=== PATIENT | male | born 1950 | race Caucasian/White ===

== ENCOUNTER 2025-04-10 09:07 | Outpatient (OUT) | payer OTHER, SELFPAY ==
--- OUTSIDE RECORDS SUMMARY | 2025-03-29 04:00 | XMS_ITS | Encounter Summary ---
Author Name [facility] Organization [facility] Address [address] [place] [id number] Selected Encounter This section includes the information on record at ME for the Encounter. Date/Time Encounter Type Encounter Description Reason Provider Source March 29, 2025 08:00 AM Outpatient Encounter GENERAL INTERNAL MEDICINE ICD-10-CM Z02.89 Encounter for other administrative examinations [facility] K[facility] Encounter Template Text not used by ME Assessments - Encounter Diagnoses This section includes the primary and secondary diagnoses documented for the Encounter. Date/Time Primary/Secondary Diagnosis Diagnosis Name Provider Source March 29, 2025 11:38 AM PRIMARY Encounter for other administrative examinations [facility] KUR[facility] Encounter Notes: All associated encounter notes This section contains the clinical notes associated to the Encounter. Date/Time Encounter Note(s) Provider Source March 29, 2025 08:00 AM C & P EXAMINATION NOTE: LOCAL TITLE: C&P EXAMINATION NOTE STANDARD TITLE: C & P EXAMINATION NOTE DATE OF NOTE: MARCH 29, 2025@08:00 ENTRY DATE: MARCH 29, 2025@11:22:48 AUTHOR: HILLARY KURTZ EXP COSIGNER: URGENCY: STATUS: COMPLETED Medical Opinion Disability Benefits Questionnaire Name of patient/Tubac: BEN CASANOVA LOLY and Evidence Review Indicate method used to obtain medical information to complete this document: [X] Review of available records (without in-person or video telehealth examination) using the Acceptable Clinical Evidence (LOLY) process because the existing medical evidence provided sufficient information on which to prepare the questionnaire and such an examination will likely provide no additional relevant evidence. 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 Please examine the for a chronic disability related to his or her claimed condition and indicate the current level of severity. TYPE OF MEDICAL OPINION REQUESTED: Toxic Exposure Risk Activities. Does the Tubac have a diagnosis of (a) erectile dysfunction that is at least as likely as not (likelihood is at least approximately balanced or nearly equal, if not higher) caused by (the) service in [place] after considering the total potential exposure through all applicable deployments of the and the synergistic combined effect of all toxic exposure risk activities of the ? For this Contention, [facility] expects a results package to at minimum include data pertaining to the following DBQ(s): DBQ Male Reproductive Organ DBQ Medical Opinion headaches The is claiming service connection for headaches. Please examine the for a chronic disability related to his or her claimed condition and indicate the current level of severity. TYPE OF MEDICAL OPINION REQUESTED: Toxic Exposure Risk Activities. Does the Tubac have a diagnosis of (a) headaches that is at least as likely as not (likelihood is at least approximately balanced or nearly equal, if not higher) caused by (the) service in [place] after considering the total potential exposure through all applicable deployments of the and the synergistic combined effect of all toxic exposure risk activities of the ? For this Contention, [facility] expects a results package to at minimum include data pertaining to the following DBQ(s): DBQ Medical Opinion DBQ NEURO Headaches (including Migraines) chronic bronchitis The is claiming service connection for chronic bronchitis. Please examine the Tubac for a chronic disability related to his or her claimed condition and indicate the current level of severity. TYPE OF MEDICAL OPINION REQUESTED: Toxic Exposure Risk Activities. Does the Tubac have a diagnosis of (a) chronic bronchitis that is at least as likely as not (likelihood is at least approximately balanced or nearly equal, if not higher) caused by (the) service in [place] after considering the total potential exposure through all applicable deployments of the and the synergistic combined effect of all toxic exposure risk activities of the ? For this Contention, [facility] expects a results package to at minimum include data pertaining to the following DBQ(s): DBQ Medical Opinion DBQ RESP Respiratory Conditions (Other than Tuberculosis and sleep apnea) obstructive sleep apnea The is claiming service connection for obstructive sleep apnea. Please examine the for a chronic disability related to his or her claimed condition and indicate the current level of severity. TYPE OF MEDICAL OPINION REQUESTED: Toxic Exposure Risk Activities. Does the have a diagnosis of (a) obstructive sleep apnea that is at least as likely as not (likelihood is at least approximately balanced or nearly equal, if not higher) caused by (the) service in [place] after considering the total potential exposure through all applicable deployments of the Tubac and the synergistic combined effect of all toxic exposure risk activities of the ? For this Contention, [facility] expects a results package to at minimum include data pertaining to the following DBQ(s): DBQ Medical Opinion DBQ RESP Sleep Apnea * Please direct any questions regarding this request to: Phone number: Email: * RESPONSE: Please see the following for the requested medical opinions pertaining to each: DBQ Male Reproductive Organ DBQ NEURO Headaches (including Migraines) DBQ RESP Respiratory Conditions (Other than Tuberculosis and sleep apnea) DBQ RESP Sleep Apnea /es/ HILLARY KURTZ D.O. PHYSICIAN Signed: 03/29/2025 11:22 [facility] March 29, 2025 08:00 AM C & P EXAMINATION NOTE: LOCAL TITLE: C&P EXAMINATION NOTE STANDARD TITLE: C & P EXAMINATION NOTE DATE OF NOTE: MARCH 29, 2025@08:00 ENTRY DATE: MARCH 29, 2025@11:25:30 AUTHOR: HILLARY KURTZ EXP COSIGNER: URGENCY: STATUS: COMPLETED MALE REPRODUCTIVE ORGAN CONDITIONS (INCLUDING PROSTATE CANCER) Disability Benefits Questionnaire Name of Claimant/: BEN CASANOVA Note to examiner - The is applying to the [employer] ([facility]) for disability benefits. VA will consider the information you provide on this questionnaire as part of their evaluation in processing the 's claim. Is this DBQ being completed in conjunction with a VA C&P Examination Request? [X] Yes [ ] No How was the examination completed? (check all that apply) [ ] In-person examination [X] Records reviewed [ ] Examination via approved video telehealth [ ] Other, please specify in comments box Comments: Acceptable Clinical Evidence (LOLY) Indicate the method used to obtain medical information to complete this document: [X] Review of available records (without in-person or video telehealth examination) using the Acceptable Clinical Evidence (LOLY) process because the existing medical evidence provided sufficient information on which to prepare the questionnaire and such an examination will likely provide no additional relevant evidence. Evidence Review Evidence reviewed (check all that apply): [X] VA electronic health record [X] VA e-folder Evidence Comments: No response provided 1. Diagnosis Note: These are condition(s) for which an evaluation has been requested on the exam request form (Internal ME) or for which the Tubac has requested medical evidence be provided for submission to ME. 1A. List the claimed condition(s) that pertain to this questionnaire: erectile dysfunction Note: These are the diagnoses determined during this current evaluation of the claimed condition(s) listed above. If there is no diagnosis, if the diagnosis is different from a previous diagnosis for this condition, or if there is a diagnosis of a complication due to the claimed condition, explain your findings and reasons in the remarks section. Date of diagnosis can be the date of the evaluation if the clinician is making the initial diagnosis or an approximate date determined through record review or reported history. 1B. Does the now have or has he ever been diagnosed with any conditions of the male reproductive system? [X] Yes [ ] No If yes, complete Item 1C 1C. Select diagnoses associated with the claimed condition(s). Check all that apply. [X] Erectile dysfunction, with or without penile deformity ICD code: .... Date of diagnosis: see record [X] Prostate gland injuries, infections, hypertrophy, postoperative residuals, bladder outlet obstruction Specify specific diagnosis: BPH ICD code: ... Date of diagnosis: see record 2. Medical History 2A. Describe the history, including onset and course, of the 's male reproductive organ condition(s), including prostate cancer. Brief summary: Diagnosed with ED and BPH. 2B. Does the 's treatment plan include taking continuous medication for the diagnosed condition? [ ] Yes [X] No 2C. Has the Tubac had an orchiectomy? [ ] Yes [X] No For ME purposes, renal dysfunction includes evidence demonstrating the following for at least 3 consecutive months during the past 12 months: glomerular filtration rate (GFR) of less than 60 mL/min/1.73m2; or GFR from 60 to 89 mL/min/1.73m2 and the presence of at least one of the following: recurrent red blood cell (RBC) casts, white blood cell (WBC) casts, granular casts, structural kidney abnormalities (cystic, obstructive, or glomerular), or increased secretion of protein in the urine (proteinuria). GFR, estimated GFR (eGFR), and creatinine based approximations of GFR will be accepted for evaluation purposes when determined to be appropriate and calculated by a medical professional. Note: If the medical record contains multiple lab tests during this 12 month period, by at least 3 months, and there is no evidence to contradict those findings in the interim period, ME will accept that the demonstrated renal dysfunction has persisted for at least 3 consecutive months during the past 12 months. 2D. Is there any renal dysfunction due to any conditions listed in the diagnosis section? [ ] Yes [X] No 3. Voiding Dysfunction 3A. Does the have a voiding dysfunction? [X] Yes [ ] No If yes, complete the remainder of section III. 3B. Etiology of voiding dysfunction: BPH 3C. Does the voiding dysfunction cause urine leakage? [X] Yes [ ] No Indicate severity. Check one: [ ] Does not require the wearing of absorbent material [X] Requires absorbent material which must be changed less than 2 times per day [ ] Requires absorbent material which must be changed 2 to 4 times per day [ ] Requires absorbent material which must be changed more than 4 times per day [ ] Other, describe: 3D. Does the voiding dysfunction require the use of an appliance? [ ] Yes [X] No 3E. Does the voiding dysfunction cause increased urinary frequency? [ ] Yes [X] No 3F. Does the voiding dysfunction cause signs or symptoms of obstructed voiding? [ ] Yes [X] No 4. Erectile Dysfunction 4A. Does the have erectile dysfunction? [X] Yes [ ] No If yes, provide etiology, if known. No response provided [X] Etiology unknown 5. Retrograde Ejaculation 5A. Does the Tubac have retrograde ejaculation? [ ] Yes [X] No 6. Male Reproductive Organ Infections, Including Urinary Tract Infections - 6A. Does the Tubac have a history of chronic prostatitis, urethritis, epididymitis, orchitis, or urinary tract infections? [ ] Yes [X] No 7. Physical Exam No response provided 8. Tumors and Neoplasms 8A. Does the currently have, or has had, a benign or malignant neoplasm or metastases related to any condition in the diagnosis section? [X] Yes [ ] No If yes, complete the remainder of section VIII. 8B. Is the neoplasm [X] Benign 8C. Has the completed treatment or is the currently undergoing treatment for a benign or malignant neoplasm or metastases? [X] Yes [ ] No; watchful waiting If yes, indicate type of treatment the Tubac is currently undergoing or has completed. Check all that apply: No response provided [X] Transurethral resection of the prostate (TURP) Date of surgery: 03-07-2024 8D. Does the Tubac currently have any residuals or complications due to the neoplasm (including metastases) or its treatment, other than those already documented in the report above? [ ] Yes [X] No 8E. If there are additional benign or malignant neoplasms or metastases related to any of the diagnoses in the diagnosis section, describe using the above format. No response provided 9. Other Pertinent Physical Findings, Complications, Conditions, Signs, Symptoms, and Scars ----- 9A. Does the have any other pertinent physical findings, complications, conditions, signs or symptoms related to any conditions listed in the diagnosis section above? [ ] Yes [X] No 9B. Does the have any scars or other disfigurement (of the skin) related to any conditions or to the treatment of any conditions listed in the diagnosis section? [ ] Yes [X] No 10. Diagnostic Testing Note: If imaging studies, diagnostic procedures or laboratory testing have been performed and reflects the Tubac's current condition, provide most recent results; no further studies or testing are required for this examination. 10A. Has a biopsy been performed? [X] Yes [ ] No Date of biopsy: 03-07-2024 Results: Component Resulting Agency FINAL DIAGNOSIS A. Prostate, chips, transurethral resection: - Benign fibromuscular and glandular hyperplasia. 10B. Are there any other significant diagnostic test findings or results related to the claimed condition(s) and/or diagnosis(es) that were reviewed in conjunction with this examination? [X] Yes [ ] No If yes, provide type of test or procedure, date and results. Brief summary: PSA 04/17/2012 3.87 Dec 16, 2022: 5.83 Dec 23, 2023: 8.01 Uroflow interpretation Decreased strength of the urinary stream with incomplete bladder emptying. 40% PVR 11. Functional Impact Note: Provide the impact of only the diagnosed condition(s), without consideration of the impact of other medical conditions or factors, such as age. 11A. Regardless of the Tubac's current employment status, do the conditions listed in the diagnosis section impact his/her ability to perform any type of occupational task (such as standing, walking, lifting, sitting, etc.)? [ ] Yes [X] No 12. Remarks 12A. Remarks (if any - please identify the section to which the remark pertains when appropriate). 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 Please examine the for a chronic disability related to his or her claimed condition and indicate the current level of severity. TYPE OF MEDICAL OPINION REQUESTED: Toxic Exposure Risk Activities. Does the Tubac have a diagnosis of (a) erectile dysfunction that is at least as likely as not (likelihood is at least approximately balanced or nearly equal, if not higher) caused by (the) service in [place] after considering the total potential exposure through all applicable deployments of the Tubac and the synergistic combined effect of all toxic exposure risk activities of the ? Additional Information: Document Type: Medical Treatment Record - Non-Government Facility, Subject: null, Annotation: , Document ID: [id number] , Upload Date: 01/24/2025, Page number: 1 Document Type: OKSANA Memorandum, Subject: OKSANA Espinoza, Annotation: , Document ID: [id number] , Upload Date: 02/11/2025, Page number: 1 Document Type: Certificate of Release or Discharge From Active Duty (e.g. DD 214, NOAA 56-16, PHS 1867), Subject: 1) Reg [employer] HON 11/05/1966 - 11/04/1970 ([place] Annotation: , Document ID: [id number] , Upload Date: 05/10/2024, Page number: 1 Document Type: DPRIS Response, Subject: DPRIS Response, Annotation: [place] pg 32, Document ID: [id number] , Upload Date: 04/27/2024, Page number: 1 Document Type: ILER IES Record, Subject: ILER - Individual Longitudinal Exposure Record, Annotation: , Document ID: [id number], Upload Date: 11/08/2024, Page number: 1 Document Type: Certificate of Release or Discharge From Active Duty (e.g. DD 214, NOAA 56-16, PHS 1867), Subject: 2) T-10 [employer] HON 11/17/2003 - 02/02/2005, Annotation: , Document ID: [id number] , Upload Date: 05/10/2024, Page number: 1 For this Contention, [facility] expects a results package to at minimum include data pertaining to the following DBQ(s): DBQ Male Reproductive Organ DBQ Medical Opinion Please direct any questions regarding this request to: Phone number: Email: RESPONSE: erectile dysfunction The Tubac is claiming service connection for erectile dysfunction. Please examine the Tubac for a chronic disability related to his or her claimed condition and indicate the current level of severity. TYPE OF MEDICAL OPINION REQUESTED: Toxic Exposure Risk Activities. After review of the available medical record, the has a diagnosis of (ED) erectile dysfunction that is less likely as not (likelihood is less than approximately balanced or nearly equal) caused by (the) service in [place] after considering the total potential exposure through all applicable deployments of the and the synergistic combined effect of all toxic exposure risk activities of the . This was involved in a [place] including [place] and service in [facility]. There is no objective evidence that this 's [place] is the cause of his ED. ED is common in the general populations. This is at risk for ED due to advancing age, peripheral artery disease, BPH, DLD, and tobacco abuse. TYPE OF MEDICAL OPINION REQUESTED: Toxic Exposure Risk Activities. After review of the available medical record, the Tubac has a diagnosis of (BPH) benign prostate hyperplasia that is less likely as not (likelihood is less than approximately balanced or nearly equal) caused by (the) service in [place] after considering the total potential exposure through all applicable deployments of the Tubac and the synergistic combined effect of all toxic exposure risk activities of the Tubac. This was involved in a [place] including [place] and service in [facility]. There is no objective evidence that this 's [place] is the cause of his BPH. BPH is common in the general populations. This is at risk for BPH due to advancing age and his history of tobacco abuse. /kenna/ HILLARY KURTZ D.O. PHYSICIAN Signed: 03/29/2025 11:25 [facility] March 29, 2025 08:00 AM C & P EXAMINATION NOTE: LOCAL TITLE: C&P EXAMINATION NOTE STANDARD TITLE: C & P EXAMINATION NOTE DATE OF NOTE: MARCH 29, 2025@08:00 ENTRY DATE: MARCH 29, 2025@11:27:30 AUTHOR: HILLARY KURTZ EXP COSIGNER: URGENCY: STATUS: COMPLETED Headaches (including Migraine Headaches) Disability Benefits Questionnaire Name of patient/Tubac: BEN CASANOVA Is this DBQ being completed in conjunction with a VA [id number], C&P Examination Request? [X] Yes [ ] No How was the examination completed? (check all that apply) [ ] In-person examination [X] Records reviewed [ ] Examination via approved video telehealth [ ] Other, please specify in comments box Comments: LOLY and Evidence Review Indicate method used to obtain medical information to complete this document: [X] Review of available records (without in-person or video telehealth examination) using the Acceptable Clinical Evidence (LOLY) process because the existing medical evidence provided sufficient information on which to prepare the questionnaire and such an examination will likely provide no additional relevant evidence. Evidence Review Evidence reviewed (check all that apply): [X] ME electronic health record [X] ME e-folder 1. Diagnosis Does the Tubac now have or has he/she ever been diagnosed with a headache condition? [ ] Yes [X] No 2. Medical History No response provided. 3. Symptoms No response provided. 4. Prostrating attacks of headache pain --- No response provided. 5. Other pertinent physical findings, complications, conditions, signs, symptoms and scars No response provided. 6. Diagnostic testing Are there any other significant diagnostic test findings and/or results? No response provided. 7. Functional impact No response provided. 8. 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 Please examine the Tubac for a chronic disability related to his or her claimed condition and indicate the current level of severity. TYPE OF MEDICAL OPINION REQUESTED: Toxic Exposure Risk Activities. Does the Tubac have a diagnosis of (a) headaches that is at least as likely as not (likelihood is at least approximately balanced or nearly equal, if not higher) caused by (the) service in [place] after considering the total potential exposure through all applicable deployments of the Tubac and the synergistic combined effect of all toxic exposure risk activities of the Tubac? Additional Information: Document Type: Medical Treatment Record - Non-Government Facility, Subject: null, Annotation: , Document ID: [id number] , Upload Date: 01/24/2025, Page number: 1 Document Type: OKSANA Memorandum, Subject: OKSANA Espinoza, Annotation: , Document ID: [id number] , Upload Date: 02/11/2025, Page number: 1 Document Type: Certificate of Release or Discharge From Active Duty (e.g. 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 DD 214, NOAA 56-16, PHS 1867), Subject: 2) T-10 [employer] HON 11/17/2003 - 02/02/2005, Annotation: , Document ID: [id number] , Upload Date: 05/10/2024, Page number: 1 For this Contention, [facility] expects a results package to at minimum include data pertaining to the following DBQ(s): DBQ Medical Opinion DBQ NEURO Headaches (including Migraines) Please direct any questions regarding this request to: Phone number: Email: RESPONSE: There is no objective evidence of a diagnosed chronic condition of headaches for this . His past medical history indicates this had a headache 10-31-2014. This is not evidence of a chronic condition as subsequent treatment notes are silent for ongoing treatment of headaches. /kenna/ HILLARY KURTZ D.O. PHYSICIAN Signed: 03/29/2025 11:27 [facility] March 29, 2025 08:00 AM C & P EXAMINATION NOTE: LOCAL TITLE: C&P EXAMINATION NOTE STANDARD TITLE: C & P EXAMINATION NOTE DATE OF NOTE: MARCH 29, 2025@08:00 ENTRY DATE: MARCH 29, 2025@11:29:27 AUTHOR: HILLARY KURTZ COSIGNER: URGENCY: STATUS: COMPLETED Sleep Apnea Disability Benefits Questionnaire Name of patient/Tubac: BEN CASANOVA Is this DBQ being completed in conjunction with a [place] [id number], C&P Examination Request? [X] Yes [ ] No How was the examination completed? (check all that apply) [ ] In-person examination [X] Records reviewed [ ] Examination via approved video telehealth [ ] Other, please specify in comments box Comments: LOLY and Evidence Review Indicate method used to obtain medical information to complete this document: [X] Review of available records (without in-person or video telehealth examination) using the Acceptable Clinical Evidence (LOLY) process because the existing medical evidence provided sufficient information on which to prepare the questionnaire and such an examination will likely provide no additional relevant evidence. Evidence Review Evidence reviewed (check all that apply): [X] [facility] [X] [place] 1. Diagnosis Does the Tubac have or has he/she ever had sleep apnea? [ ] Yes [X] No 2. Medical history a. Describe the history (including onset and course) of the Tubac's sleep disorder condition (brief summary): [facility] My Chart Health Issues You Asked to be Removed ASH tested negative 02-24-2022 b. Is continuous medication required for control of a sleep disorder condition? [ ] Yes [X] No c. Does the Tubac require the use of a breathing assistance device? [ ] Yes [X] No d. Does the Tubac require the use of a continuous positive airway pressure (CPAP) machine? No response provided. 3. Findings, signs and symptoms Does the currently have any findings, signs or symptoms attributable to sleep apnea? [ ] Yes [X] No 4. Other pertinent physical findings, complications, conditions, signs, symptoms and scars a. Does the Tubac have any other pertinent physical findings, complications, conditions, signs or symptoms related to any conditions listed in the Diagnosis Section above? [ ] Yes [X] No b. Does the have any scars (surgical or otherwise) related to any conditions or to the treatment of any conditions listed in the Diagnosis Section above? [ ] Yes [X] No c. Comments, if any: No response provided. 5. Diagnostic testing a. Has a sleep study been performed? [X] Yes [ ] No If yes, does the have documented sleep disorder breathing? [ ] Yes [X] No Date of sleep study: 02-24-2022 Facility where sleep study performed, if known: [facility] Results: negative for sleep apnea b. Are there any other significant diagnostic test findings and/or results? [ ] Yes [X] No 6. Functional impact Does the 's sleep apnea impact his or her ability to work? [ ] Yes [X] No 7. 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 Please examine the for a chronic disability related to his or her claimed condition and indicate the current level of severity. TYPE OF MEDICAL OPINION REQUESTED: Toxic Exposure Risk Activities. Does the have a diagnosis of (a) obstructive sleep apnea that is at least as likely as not (likelihood is at least approximately balanced or nearly equal, if not higher) caused by (the) service in [place] after considering the total potential exposure through all applicable deployments of the and the synergistic combined effect of all toxic exposure risk activities of the Tubac? Additional Information: Document Type: OKSANA Memorandum, Subject: OKSANA Gustafsono, Annotation: , Document ID: [id number] , Upload Date: 02/11/2025, Page number: 1 Document Type: Certificate of Release or Discharge From Active Duty (e.g. DD 214, NOAA 56-16, PHS 1867), Subject: 1) [facility] 11/05/1966 - 11/04/[place] ([place] Annotation: , Document ID: [id number] , Upload Date: 05/10/2024, Page number: 1 Document Type: DPRIS Response, Subject: DPRIS Response, Annotation: [place] pg 32, Document ID: [id number] , Upload Date: 04/27/2024, Page number: 1 Document Type: ILER IES Record, Subject: ILER - Individual Longitudinal Exposure Record, Annotation: , Document ID: [id number], Upload Date: 11/08/2024, Page number: 1 Document Type: Medical Treatment Record - Non-Government Facility, Subject: null, Annotation: , Document ID: [id number] , Upload Date: 01/24/2025, Page number: 1 Document Type: Certificate of Release or Discharge From Active Duty (e.g. DD 214, NOAA 56-16, PHS 1867), Subject: 2) [employer] HON 11/17/2003 - 02/02/2005, Annotation: , Document ID: [id number] , Upload Date: 05/10/2024, Page number: 1 For this Contention, [facility] expects a results package to at minimum include data pertaining to the following DBQ(s): DBQ Medical Opinion DBQ RESP Sleep Apnea Please direct any questions regarding this request to: Phone number: Email: RESPONSE: There is no objective evidence of a chronic diagnosis of ASH for this . A submitted [facility] My Chart entry contained the following: Health Issues You Asked to be Removed - ASH Comments: tested negative 02-24-2022. [facility] Session Date 03-02-2022 He had a sleep study done, does not have ASH /kenna/ HILLARY KURTZ D.O. PHYSICIAN Signed: 03/29/2025 11:29 [facility] March 29, 2025 08:00 AM C & P EXAMINATION NOTE: LOCAL TITLE: C&P EXAMINATION NOTE STANDARD TITLE: C & P EXAMINATION NOTE DATE OF NOTE: MARCH 29, 2025@08:00 ENTRY DATE: MARCH 29, 2025@11:36:34 AUTHOR: HILLARY KURTZ COSIGNER: URGENCY: STATUS: COMPLETED Respiratory Conditions (Other Than Tuberculosis and Sleep Apnea) Disability Benefits Questionnaire Name of patient/Tubac: BEN CASANOVA Is this questionnaire being completed in conjunction with a [facility] C&P examination request? [X] Yes [ ] No How was the examination completed? (check all that apply) [ ] In-person examination [X] Records reviewed [ ] Examination via approved video telehealth [ ] Other, please specify in comments box Comments: LOLY and Evidence Review Indicate method used to obtain medical information to complete this document: [X] Review of available records (without in-person or video telehealth examination) using the Acceptable Clinical Evidence (LOLY) process because the existing medical evidence provided sufficient information on which to prepare the questionnaire and such an examination will likely provide no additional relevant evidence. Evidence Review Evidence reviewed (check all that apply): [X] [place] [X] [facility] SECTION I - DIAGNOSES 1A. Does the now have or has he or she ever been diagnosed with a respiratory condition? (This is the condition the is claiming or for which an exam has been requested.): Yes [X] Asthma ICD code: ... Date of diagnosis: 2022 [X] Emphysema ICD code: .... Date of diagnosis: 2022 [X] Chronic obstructive pulmonary disease (COPD) ICD code: .... Date of diagnosis: 2022 [X] Chronic bronchitis ICD code: ... Date of diagnosis: 2022 SECTION II - MEDICAL HISTORY Describe the history (including onset and course) of the 's respiratory condition (brief summary): DX copd severe persistent asthma chronic bronchitis emphysema You saw Dr Therese Gauthier MD on Tuesday June 04, 2024 The following issues were addressed Chronic obstructive pulmonary disease, unspecified COPD type (ALF) Severe persistent asthma without comnplication Mucopurulent chronic bronchitis (HCC) Does the Tubac's respiratory condition require the use of oral or parenteral corticosteroid medications? No Does the 's respiratory condition require the use of inhaled medications? Yes Check all that apply: [X] Inhalational bronchodilator therapy Indicate frequency: Daily [X] Inhalational anti-inflammatory medication Indicate frequency: Daily [X] Other inhaled medications, describe: oxygen at night Does the Tubac's respiratory condition require the use of oral bronchodilators? No Does the 's respiratory condition require the use of antibiotics? No Does the Tubac require outpatient oxygen therapy for his or her respiratory condition? Yes Does the require continuous oxygen therapy (>17 hours/day)? No SECTION III - PULMONARY CONDITIONS 3. Does the have any of the following pulmonary conditions? Yes [X] Asthma [X] Other pulmonary conditions, pertinent physical findings or scars due to pulmonary conditions t A - Asthma Has the Tubac had any asthma attacks with episodes of respiratory failure in the past 12 months? Yes Indicate average number of asthma attacks with episodes of respiratory failure per week in past 12 months: 0 Has the Tubac had any physician visits for required care of exacerbations? No T L - Other pertinent physical findings, complications, conditions, signs, symptoms, and scars . Does the have any other pertinent physical findings, complications, conditions, signs or symptoms related to any conditions listed in the Diagnosis Section above? No . Does the have any scars (surgical or otherwise) related to any conditions or to the treatment of any conditions listed in the Diagnosis Section above? No C. Comments, if any: No response provided SECTION IV - DIAGNOSTIC TESTING . Have imaging studies or procedures been performed? Yes [X] Computed tomography (CT) Date: 10-28-2023 Results: EXAMINATION: LOW DOSE SCREENING CT OF THE CHEST WITHOUT CONTRAST 10/28/2023 1:31 pm Lungs/pleura: Lungs are clear without focal opacification or consolidation. Hyperinflated lungs with upper lobe predominant centrilobular emphysema along with central bronchiectasis. No dominant nodule or mass lesion. No pleural effusion or pleural process. [place]: Chronic obstructive pulmonary disease with hyperinflated appearance. No acute pulmonary process. No suspicious nodule or mass with CT chest recommended annual or 12 month follow-up as below . Has pulmonary function testing (PFT) been performed? Yes Do PFT results reported below accurately reflect the Tubac's current pulmonary function? Yes If PFTs have not been completed, provide reason: Other, description: uses O2 during sleep due to oxygen desaturation of his blood during sleep . PFT results Date: 06-08-2024 Pre-bronchodilator: Post-bronchodilator, if indicated: FVC: 45% predicted FVC: 59% predicted FEV-1: 42% predicted FEV-1: 54% predicted FEV-1/FVC: 67% FEV-1/FVC: 66% DLCO: 54 10-28-2023% predicted . Which test result most accurately reflects the 's level of disability (based on the condition that is being evaluated for this report)? FEV-1% predicted . Does the Tubac have multiple respiratory conditions? Yes List conditions and indicate which condition is predominantly responsible for the limitation in pulmonary function, if any limitation is present: COPD/chronic bronchitis ------ FEV1/FVC COPD/emphysema ----- DLCO asthma ----- FEV1 Has exercise capacity testing been performed? No . Are there any other significant diagnostic test findings and/or results? No SECTION V - FUNCTIONAL IMPACT 5. Does the 's respiratory condition impact his or her ability to work? 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 Please examine the for a chronic disability related to his or her claimed condition and indicate the current level of severity. TYPE OF MEDICAL OPINION REQUESTED: Toxic Exposure Risk Activities. Does the have a diagnosis of (a) chronic bronchitis that is at least as likely as not (likelihood is at least approximately balanced or nearly equal, if not higher) caused by (the) service in [place] after considering the total potential exposure through all applicable deployments of the and the synergistic combined effect of all toxic exposure risk activities of the Tubac? Additional Information: Document Type: Medical Treatment Record - Non-Government Facility, Subject: Back condition, Annotation: , Document ID: [id number], Upload Date: 11/08/2024, Page number: 13 Document Type: OKSANA Memorandum, Subject: OKSANA Espinoza, Annotation: , Document ID: [id number] , Upload Date: 02/11/2025, Page number: 1 Document Type: Certificate of Release or Discharge From Active Duty (e.g. DD 214, NOAA 56-16, PHS 1867), Subject: 1) [facility] HON 11/05/1966 - 11/04/1970 ([place]), Annotation: , Document ID: [id number] , Upload Date: 05/10/2024, Page number: 1 Document Type: DPRIS Response, Subject: DPRIS Response, Annotation: [place] pg [address], Document ID: [id number] , Upload Date: 04/27/2024, Page number: 1 Document Type: ILER IES Record, Subject: ILER - Individual Longitudinal Exposure Record, Annotation: , Document ID: [id number], Upload Date: 11/08/2024, Page number: 1 Document Type: Certificate of Release or Discharge From Active Duty (e.g. DD 214, NOAA 56-16, [facility] 1867), Subject: 2) T-10 [facility] HON 11/17/2003 - 02/02/2005, Annotation: , Document ID: [id number] , Upload Date: 05/10/2024, Page number: 1 For this Contention, [facility] expects a results package to at minimum include data pertaining to the following DBQ(s): DBQ Medical Opinion DBQ RESP Respiratory Conditions (Other than Tuberculosis and sleep apnea) Please direct any questions regarding this request to: Phone number: Email: RESPONSE: The is [place] for emphysema (a form of chronic obstructive pulmonary disease). TYPE OF MEDICAL OPINION REQUESTED: Toxic Exposure Risk Activities. 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 The era of Service was [place] [employer]. He served in [employer] and [employer]. A has presumption of exposure to burn pits or other toxins if they served in [employer] [facility] or [employer] [facility] on or after June 01, 1990. These illnesses are now presumptive due to burn pits: - Asthma that was diagnosed after service - Chronic obstructive pulmonary disease (COPD) - Chronic bronchitis (a form of COPD) - Emphysema (a form of COPD) 10-28-2023 fvc 59 66 fev1 46 49 ratio 56 54 54 PULMONARY FUNCTION Ben Casanova 73y.o. male Test interpretation Spirometry meets ATS criteria for severe obstructive airway disease with significant response to bronchodilator Lung volume shows air trapping Diffusion capacity is moderately reduced and normalizes when corrected for alveolar volume Clinical correlation is recommended /kenna/ HILLARY KURTZ D.O. PHYSICIAN Signed: 03/29/2025 11:36 [facility]
--- OUTSIDE RECORDS SUMMARY | 2025-04-02 12:40 | XMS_ITS | Encounter Summary ---
Author Organization [facility] Address [facility] [place] [address] Care Team Providers Care Clinical Counselor Name Role Phone Cayden Martines MD Primary Care Provider [phone] Source Comments In the event this information is protected by the Federal Confidentiality of Alcohol and Drug AbusePatient Records regulations: The Federal rules restrict any use of the information to criminally investigate or prosecute any alcohol or drug abuse patient.[facility] Reason for Visit * Reason Comments Follow Up Encounter Details Date Type Department Care Team (Latest Contact Info) Description 04/02/2025 12:40 PM EDT Visit (SP) Office Hematology/Medical Oncology [address] [place] [address] [place] [address] [place] [address] MDS (myelodysplastic syndrome) (HCC) (Primary Dx); 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); Normocytic anemia; 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 (HCC); Encounter for monitoring darbepoetin therapy; Hereditary hemochromatosis; Dependence on supplemental oxygen Social History Tobacco Use Types Packs/Day Years Used Date Smoking Tobacco: Former Cigarettes Q uit: 2020 Smokeless Tobacco: Never Alcohol Use Standard Drinks/Week Comments Not Currently 0 (1 standard drink = 0.6 oz pur e alcohol) PHQ-2 Answer Date Recorded PHQ-2 score 2 03/31/2025 Area Deprivation Index Answer Date Rui rded National Score (1-100), lower number is lower ri sk 87 04/12/2023 State Score (1-10), lower number is lower risk 8 04/12/2023 Data from: https://www.neighborhoodatlas.medicine.[facility].edu/. 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 Not on file Not o n file documented as of this encounter Last Filed Vital Signs Vital Sign Reading Time Taken Comments Blood Pressure 154/72 04/02/2025 12:18 PM EDT Pulse 72 04/02/2025 12:18 PM EDT Temperature 36.7 C (98 F) 04/02/2025 12:18 PM EDT Respiratory Rate 16 04/02/2025 12:1 8 PM EDT Oxygen Saturation 99% 04/02/2025 12: 18 PM EDT 3L Inhaled Oxygen Concentration - - Weight 82.1 kg (180 lb 14.2 oz) 025 12:18 PM EDT Height - - Body Mass Index 25.23 01/01/2025 9:39 AM EST documented in this encounter Progress Notes * Sabra Cueva MD - 04/02/2025 12:13 PM EDT Date of Service: April 02, 2025 Mr. 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 Normal cytogenetics. Current treatment: Aranes History of Present Illness: Mr. Casanova is here for a routine follow-up visit. His last blood transfusion was January 09, 2024. Patient was hospitalized in December 2024 with pneumonia. He was diagnosed with congestive heart failure at that time. He has been on oxygen all the time since that time. He has lost 4 pounds in the past 6 months. He only eats 1 meal a day which is dinner. He does a little bit of snacking. He says he does not have much of an appetite. He is short of breath with minimal exertion. He needs to use his oxygen if he does anything. He is on anticoagulation therapy from the aircraft communicator. He denies any bleeding problems. All other systems were reviewed but otherwise negative. Mr. Casanova's past medical history, past surgical history, allergies, medications, and family medicalhistory have been reviewed. Interval History: Mr. Casanova is a 74 year old male was diagnosed with hemochromatosis on June 29, 2021. 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 He was seen by medicine assistant at [facility] and treated with phlebotomy. His last phlebotomy was in December 2022. At the time of his diagnosis, his ferritin level was over 1000. His most recent ferritin levelin December 2022 was 492. Patient says that even prior to being diagnosed with hemochromatosis and receiving phlebotomy, he was anemic. Patient complains of fatigue. He quit smoking February 17, 2022. He smoked 2 packs/day. He has severe emphysema and is on 2 L of oxygen at bedtime. He is also on 3 inhalers. His tire molder is with [facility]. He also has heart disease and [address] He is on Pletal and baby aspirin. His cardiologistis also at [facility]. He is not on any blood pressure medication. He is on cholesterol medication. He has a fatty liver. He underwent a liver biopsy at [facility] on October 09, 2021. Bone marrow biopsy performed on April 18, 2023: MDS with low blasts (1%) and SF3B1 mutation. Cytogenetics are normal. Patient's last phlebotomy was on January 25, 2023. Mr. Casanova was seen by mobile marketing specialist Dr. Noel Medley on May 26, 2023 at [facility]. Herecommended an erythropoietin stimulating agent for now and switching to Luspatercept if patient does not respond. He recommended no further phlebotomy. He has never had a blood transfusion. Patient has a tire molder at [facility]. He is being treated with inhalers and nasal cannula O2 at bedtime. Patient admits to fatigue for the past 3 years. He has dyspnea on exertion. He has COPD. He uses inhalers. He is supposed to be using 2 L of O2 at bedtime. He probably needs to be on oxygen during the day as well. He says that he cannot tolerate the nasal cannula. He was a 2 pack/day smoker for 58 years. He only recently quit smoking 15 months ago. He denies any shortness of breath at rest. Social History: Mr. Casanova continues to do his activities of daily living. He is accompanied by his at today's office visit. ECOG Performance Status: 2 - Ambulatory and capable of all selfcare but unable to carry out any work activities. Up and about more than 50% of waking hours PHYSICAL EXAM: VS: BP 154/72 Pulse 72 Temp 36.7 ??C (98 ??F) (Temporal) Resp 16 Wt 82.1 kg (180 lb 14.2 oz) SpO2 99% BMI 25.23 kg/m?? General: No acute distress. O2 per nasal cannula. Eyes: Pupils equal, round, and reactive to light. Extraocular movements intact. No scleral icterus or conjunctival pallor. Mouth: Moist mucous membranes. No erythema or exudate. Neck: Supple. Heart: Regular rate and rhythm. Normal S1, S2. Lungs: Clear to auscultation bilaterally. No wheezes, rhonchi, or crackles. Abdomen: Positive bowel sounds. Soft, nontender, nondistended. Extremities: Warm and dry. No edema. Neurologic: Alert and oriented x 3. No focal deficits. LABORATORY: Performed on April 02, 2025. CBC: Latest Ref Rng 04/02/2025 WBC 3.70 - 11.00 k/uL 5.40 RBC 4.20 - 6.00 m/uL 2.88 (L) Hemoglobin 13.0 - 17.0 g/dL 9.2 (L) Hematocrit 39.0 - 51.0 % 28.5 (L) MCV 80.0 - 100.0 fL 99.0 MCH 26.0 - 34.0 pg 31.9 MCHC 30.5 - 36.0 g/dL 32.3 RDW-CV 11.5 - 15.0 % 24.6 (H) Platelet Count 150 - 400 k/uL 477 (H) MPV 9.0 - 12.7 fL 8.5 (L) Neut% % 48.0 Abs Neut (ANC) 1.45 - 7.50 k/uL 2.59 Lymph% % 38.3 Abs Lymph 1.00 - 4.00 k/uL 2.07 Perkins% % 9.6 Abs Perkins <0.87 k/uL 0.52 Eosin% % 3.1 Abs Eosin <0.46 k/uL 0.17 Baso% % 0.4 Abs Baso <0.11 k/uL <0.03 Immature Gran % % 0.6 IMMATURE GRANS (ABS) <0.10 k/uL 0.03 NRBC /100 WBC 0.0 Absolute nRBC <0.01 k/uL <0.01 DTYPE Auto IMAGING: None. Assessment: Mr. Casanova is a 74 year old male Mr. Casanova is a 73 year old male former smoker diagnosedwith myelodysplastic syndrome (MDS) with low blasts and SF3B1 mutation (MDS-SF3B1). He has 46% ringed sideroblasts in his bone marrow. He only has normocytic anemia. He has no other cytopenias. International Prognostic Scoring System - Molecular (IPSS-M) score is 2, which places him in the low risk category. I had a discussion with the patient regarding his diagnosis, natural history, prognosis, and treatment options. His MDS is complicated by his hereditary hemochromatosis. His last phlebotomy was on January 25, 2023. His last ferritin level was 801 on April 12, 2023. Phlebotomy treatment for his hemochromatosis will worsen his MDS. He used to smoke 2 packs/day for 58 years. He only recently quit 15 months ago.Patient has dyspnea on exertion, which is multifactorial. My thought is that his dyspnea on exertion is more related to his COPD than his low risk MDS. He has been prescribed 2 L of oxygen at bedtime, but he says that hecannot tolerate the nasal cannula. Since his hemoglobin is less than 10, he is eligible for supportive care with transfusions as needed. I would recommend blood transfusions only if his hemoglobin is less than 7. Patient has never required a blood transfusion. If there are ongoing transfusion requirements, progressive cytopenias, or declining quality of life, then he would also be eligible for an erythropoietin stimulating agent if his serum erythropoietinlevel is less than or equal to 500. On May 26, 2023, Mr. Casanova was seen by mobile marketing specialist Dr. Noel Medley at [facility] who recommended an erythropoietin stimulating agent now and switching to Luspatercept if patient does not respond. He recommended no further phlebotomy. Patient underwent prostate surgery on March 07, 2024 and continued to have hematuria until March 29, 2024. Since that time, he is qualified for Aranesp therapy. Last blood transfusion was January 09, 2024. Last Aranesp was on April 17, 2024. Today, his hemoglobin is 9.0. He will receive Aranesp therapy. He was started on Jadenu on June 12, [address] Dawson for his hereditary hemochromatosis/elevated ferritin level. His last blood transfusion was on January 09, 2024. He is tolerating darbepoetin therapy fine. He has dyspnea with the minimalist of exertion. He requires oxygen if he does anything. In additionto his COPD, he has a new diagnosis of CHF. He also has coronary artery disease (CAD) and peripheral artery disease (PAD). Plan: 1. MDS, low risk. 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 Normocytic anemia. 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. Encounter for monitoring darbepoetin therapy. He is now transfusion independent. -For hemoglobin less than 10, darbepoetin (Aranesp) 200 mcg injection every 14 days. -Check CBC and iron studies every 3 months. -Follow-up with my nurse practitioner in 6 months. -Follow-up with me in 1 year. -Patient should repeat CBC and iron studies a few days prior to his office visits. 2. Reactive thrombocytosis. -Continue to monitor CBC. 3. Hereditary hemochromatosis. No further phlebotomy. -Patient is being managed by Dr. Dawson. Patient was started on Jadenu on June 12, 2024. 4. Former heavy smoker (2 packs/day for 58 years). COPD (severe). Dyspnea on exertion (minimal exertion). Dependence on supplemental oxygen. -He follows with both Pulmonology and Cardiology at [facility]. Mr. Casanova understands to call the office sooner if needed. Sabra Cueva MD CC: Cayden Martines MD, MD Dr. Dawson Impression: (Some elements copied from my previous note have been updated where appropriate, and all reflect current medical decision making from today, 04/02/2025) documented in this encounter Plan of Treatment Upcoming Encounters Date Type Department Care Team (Late st Contact Info) Description 04/16/2025 10:45 AM EDT Results Only [facility] [address] [place] [address] Myelodysplastic disease, not elsewhere classified (HCC) [C94.6]; Elevated ferritin level [R79.89] 04/16/2025 11:00 AM EDT Infusion Center Hematology/Oncolog y [facility] [place] [address] [address] [place]; Aranesp Inj 04/30/2025 10:45 AM EDT Results Only [facility] [address] [place] [address] Myelodysplastic disease, not elsewhere classified (HCC) [C94.6]; Elevated ferritin level [R79.89] 04/30/2025 11:00 AM EDT Infusion Center Hematology/Oncolog y [facility] [place] [address] [place]; Aranesp Inj 05/14/2025 10:45 AM EDT Results Only [facility] [address] [place] [address] Myelodysplastic disease, not elsewhere classified (HCC) [C94.6]; Elevated ferritin level [R79.89] 05/14/2025 11:00 AM EDT Infusion Center Hematology/Oncolog y [facility] [place] [address] [place]; Aranesp Inj 05/28/2025 10:45 AM EDT Results Only [facility] [address] [place] [address] Myelodysplastic disease, not elsewhere classified (HCC) [C94.6]; Elevated ferritin level [R79.89] 05/28/2025 11:00 AM EDT Infusion Center Hematology/Oncolog y [facility] [place] [address] [place]; Aranesp Inj 06/05/2025 12:45 PM EDT Office Visit OPHT Ophthalmology [address] [facility] [place] [address] Sheryl Mckee OD [address] [facility] [address] LVM R/S from 06/07/2025 06/11/2025 10:45 AM EDT Results Only [facility] [place] [address] Myelodysplastic disease, not elsewhere classified (HCC) [C94.6]; Elevated ferritin level [R79.89] 06/11/2025 11:00 AM EDT Infusion Center [facility]ology[facility] [facility] [place] [address] [place]; Aranesp Inj 06/25/2025 10:45 AM EDT Results Only [facility] [place] [address] Myelodysplastic disease, not elsewhere classified (HCC) [C94.6]; Elevated ferritin level [R79.89] 06/25/2025 11:00 AM EDT Infusion Center Hematology[place] [address] [place]; Aranesp Inj 07/09/2025 10:20 AM EDT Visit (SP) Office Hematology [address] [place] [address] [place] [address] [place] [address] 6 month follow up 10/02/2025 11:30 AM EST Visit (SP) Office [facility] [place] [address] Comfort Leavitt APRN.SPA ASSOCIATE [address] 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
--- OUTSIDE RECORDS SUMMARY | 2025-04-02 13:15 | XMS_ITS | Encounter Summary ---
Author Organization [facility] Address [facility] [place] [address] Care Team Providers Care Counter Stitcher Name Role Phone Cayden Martines MD Primary Care Provider [phone] Source Comments In the event this information is protected by the Federal Confidentiality of Alcohol and Drug AbusePatient Records regulations: The Federal rules restrict any use of the information to criminally investigate or prosecute any alcohol or drug abuse patient.[facility] Reason for Visit * Barto Prior Authorization (Routine) - Authorized Specialty Diagnoses / Procedures Referred By Contac t Referred To Contact Diagnoses Myelodysplastic disease, not elsewhere classified (HCC) Procedures DARBEPOETIN BOLA, [place] [address] [place] [address] Phone: tel: fax: Hematology/Oncology [facility] [place] [address] Phone: tel: Referral ID Status Reason Start Date Expiration Date V isits Requested Visits Authorized [id number] Authorized 06/28/2023 09/05/2025 99 99 Encounter Details Date Type Department Care Team (Latest Contact Info) Description 04/02/2025 1:15 PM EDT Infusion Center Hematology/[place] [address] MDS (myelodysplastic syndrome) (HCC) (Primary Dx) Social History Tobacco Use Types Packs/Day Years [...] is lower risk 8 04/12/2023 Data from: https://www.neighborhoodatlas.medicine.[facility].edu/. 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 Not on file Not o n file documented as of this encounter Plan of Treatment Upcoming Encounters Date Type Department Care Team (Late st Contact Info) Description 04/16/2025 10:45 AM EDT Results Only [facility] [place] [address] Myelodysplastic disease, not elsewhere classified (HCC) [C94.6]; Elevated ferritin level [R79.89] 04/16/2025 11:00 AM EDT Infusion Center Hematology/Oncolog y [address] [place] [address] [place]; Aranesp Inj 04/30/2025 10:45 AM EDT Results Only [facility] [place] [address] Myelodysplastic disease, not elsewhere classified (HCC) [C94.6]; Elevated ferritin level [R79.89] 04/30/2025 11:00 AM EDT Infusion Center Hematology[place] [address] [place]; Aranesp Inj 05/14/2025 10:45 AM EDT Results Only [facility] [place] [address] Myelodysplastic disease, not elsewhere classified (HCC) [C94.6]; Elevated ferritin level [R79.89] 05/14/2025 11:00 AM EDT Infusion Center Hematology[place] [address] [place]; Aranesp Inj 05/28/2025 10:45 AM EDT Results Only [facility] [place] [address] Myelodysplastic disease, not elsewhere classified (HCC) [C94.6]; Elevated ferritin level [R79.89] 05/28/2025 11:00 AM EDT Infusion Center Hematology[place] [address] [place]; Aranesp Inj 06/05/2025 12:45 PM EDT Office Visit [facility] Ophthalmology [address] [place] [address] Sheryl Mckee, OD [address] [place] [address] LVM R/S from 06/07/2025 06/11/2025 10:45 AM EDT Results Only [facility] [place] [address] Myelodysplastic disease, not elsewhere classified (HCC) [C94.6]; Elevated ferritin level [R79.89] 06/11/2025 11:00 AM EDT Infusion Center Hematology[place] [address] [place]; Aranesp Inj 06/25/2025 10:45 AM EDT Results Only [facility] [place] [address] Myelodysplastic disease, not elsewhere classified (HCC) [C94.6]; Elevated ferritin level [R79.89] 06/25/2025 11:00 AM EDT Infusion Center Hematology/Oncolog y [address] [place] [address] [place]; Aranesp Inj 07/09/2025 10:20 AM EDT Visit (SP) Office Hematology [address] [place] [address] [place] [address] [place] [address] 6 month follow up 10/02/2025 11:30 AM EST Visit (SP) Office Hematology/Medical Oncology [address] [place] [address] Comfort Leavitt APRN.RAISE MINER [address] [place] [address] 6 month OV f/u with labs prior documented as of this encounter Visit Diagnoses Diagnosis MDS (myelodysplastic syndrome) (HCC)- Primary Myelodysplastic syndrome, unspecified documented in this encounter Administered Medications Inactive Administered Medications - up to 3 most recent administrations Medication Order MAR Action Action Date Dose Rate Site Darbepoetin Bola In Polysorbat 200 mcg injection (ARANESP) 200 mcg, SUBCUTANEOUS, ONCE, 1 dose, On Tue04/02/25 at 1230, Protect from light REFRIGERATEIndications:MDS (myelodysplastic syndrome) (HCC) Given 04/02/2025 1:03 PM EDT 200 mcg Arm, Right documented in this encounter Care Teams Counter Stitcher Relationship Specialty Start Date End Date Cayden Martines MD [address] [place] [address] PCP - General Family Medicine 05/24/23 documented as of this encounter
--- OUTSIDE RECORDS SUMMARY | 2025-04-10 09:07 | XMS_ITS | Continuity of Care Document ---
Author Name [facility] Organization [facility] Care Team Providers Care Spearer Name Role Phone [facility] Unavailable Unavailable Problems Combined list of problems from Department of Defense and Veterans Affairs facilities. It does not include entries that were removed or entered in error. Problem Status Onset Date Problem Type Date of Resolution Comments Source tobacco use Inactive Condition DoD Serology Prostate-specific Antigen (PSA) Elevated Inactive Condition DoD NICOTINE DEPENDENCE Active Condition DoD visit for: screening exam pulmonary tuberculosis Active Condition DoD Need For Vaccination Typhoid Active Condition [facility] Vaccines Prophylactic Need Against Td Active Condition DoD visit for: services physical Active Condition Medically cleared to deploy [facility] Diagnosis: ICD-10-CM Z02.89 Encounter for other administrative examinations Active Diagnosis [facility] Medications Combined list of outpatient medications from Department of Defense and Veterans Affairs facilities.Medications provided include 1) outpatient medications from the last 15 months, and 2) patient-reported medications. Medication Details Route Status Patient Instructions Prescription Expires Prescription Number Last Dispense Date Ordering Provider Order Date Order Qty Source DOXYCYCLINE HYCLATE (doxycyclin e hyclate), 100 MG, TABLET, ORAL, DataPad, 50 ea. BOTTLE Active [id number] 2023 10 Pharmac y Data Transac tion Service Facilit y DUPIXENT PEN (dupilumab) , 300 MG/2ML, PEN INJCTR, SUBCUT, SANOFI-AVEN TIS, 2 ml SYRINGE Cancele d [id number] : 2023 0 Pharmac y Data Transac tion Service Facilit y DUPIXENT PEN (dupilumab) , 300 MG/2ML, PEN INJCTR, SUBCUT, SANOFI-AVEN TIS, 2 ml SYRINGE Cancele d [id number] : 2023 0 Pharmac y Data Transac tion Service Facilit y DUPIXENT PEN (dupilumab) , 300 MG/2ML, PEN INJCTR, SUBCUT, SANOFI-AVEN TIS, 2 ml SYRINGE Active [id number] 4 2023 4 Pharmac y Data Transac tion Service Facilit y DUPIXENT PEN (dupilumab) , 300 MG/2ML, PEN INJCTR, SUBCUT, SANOFI-AVEN TIS, 2 ml SYRINGE Active [id number] 4 2023 4 Pharmac y Data Transac tion Service Facilit y DUPIXENT PEN (dupilumab) , 300 MG/2ML, PEN INJCTR, SUBCUT, SANOFI-AVEN TIS, 2 ml SYRINGE Active [id number] 4 2023 4 Pharmac y Data Transac tion Service Facilit y DUPIXENT PEN (dupilumab) , 300 MG/2ML, PEN INJCTR, SUBCUT, SANOFI-AVEN TIS, 2 ml SYRINGE Cancele d [id number] : 2023 0 Pharmac y Data Transac tion Service Facilit y METHYLPREDN ISOLONE (methylpred nisolone), 4 MG, TAB DS PK, ORAL, DataPad, 21 ea. DOSE-PACK Active [id number] 4 2023 21 Pharmac y Data Transac tion Service Facilit y MONTELUKAST SODIUM (montelukas t sodium), 10 MG, TABLET, ORAL, XLCARE PHARMACE, 90 ea. BOTTLE Active [id number] 4 2023 90 Pharmac y Data Transac tion Service Facilit y NITROFURANT OIN MONO-MACRO (NITROFURAN TOIN MONOHYD/M-C RYST), 100 MG, CAPSULE, ORAL, [employer], 100 ea. BOTTLE Active [id number] 2023 14 Pharmac y Data Transac tion Service Facilit y PREDNISONE (prednisone ), 20 MG, TABLET, ORAL, AUROBINDO PHARM, 100 ea. BOTTLE Active [id number] 4 2023 20 Pharmac y Data Transac tion Service Facilit y TRELEGY ELLIPTA (fluticason e furoate/ume clidinium bromide/michael anterol trifenat), 200-62.5, BLST W/DEV, INHALATION, Hstry LINE, 60 ea. BLIST PACK Active [id number] 4 2023 60 Pharmac y Data Transac tion Service Facilit y Allergies, Adverse Reactions, Alerts Combined list of allergies from Department of Defense and Veterans Affairs facilities. It does not include entries that were removed or entered in error. Substance Category Reaction Severity Reaction type Status Date Reported Comments Source No Known Allergies Drug allergy (disorder) active 08/29/2007 [facility], [place] Immunizations Combined list of available immunizations from the Department of Defense and Veterans Affairs facilities. Immunization Series Date Given Administered By Site Reaction Lot Number CVX Code Drug Loan Adviser Status Comments Source INFLUENZA, HIGH-DOSE, TRIVALENT, PF 2023 135 complet ed HISTORICA L INFORMATI ON - FROM OTHER REGISTRY, [facility] COVID-19 (MODERNA), MRNA, LNP-S, PF, 50 MCG/0.5 ML (AGES 12+ YEARS) 2023 312 complet ed HISTORICA L INFORMATI ON - FROM OTHER REGISTRY, [facility] COVID-19 (PFIZER), MRNA, LNP-S, PF, DIONISIO-SUCROSE, 30 MCG/0.3 ML (AGES 12+ YEARS) 2022 309 complet ed HISTORICA L INFORMATI ON - FROM OTHER REGISTRY, [facility] INFLUENZA, ADJUVANTED, QUADRIVALENT, PF 2022 205 complet ed HISTORICA L INFORMATI ON - FROM OTHER REGISTRY, [facility] INFLUENZA, ADJUVANTED, QUADRIVALENT, PF 2021 205 complet ed HISTORICA L INFORMATI ON - FROM OTHER REGISTRY, [facility] COVID-19 (PFIZER), MRNA, LNP-S, BIVALENT, PF, 30 MCG/0.3 ML DOSE 4 2021 300 complet ed HISTORICA L INFORMATI ON - FROM OTHER REGISTRY, [facility] INFLUENZA, ADJUVANTED, QUADRIVALENT, PF 8 2020 205 complet ed HISTORICA L INFORMATI ON - FROM OTHER REGISTRY, [facility] COVID-19, mRNA, LNP-S, PF, 30 mcg/0.3 mL dose 2020 ANGEL FERGUSON () Not Given COVID-19, mRNA, LNP-S, PF, 30 mcg/0.3 mL dose [facility] COVID-19 (PFIZER), MRNA, LNP-S, PF, 30 MCG/0.3 ML DOSE 3 2020 208 complet ed HISTORICA L INFORMATI ON - FROM OTHER REGISTRY, [facility] COVID-19 (PFIZER), MRNA, LNP-S, PF, 30 MCG/0.3 ML DOSE 2 2020 208 complet ed HISTORICA L INFORMATI ON - FROM OTHER REGISTRY, [facility] COVID-19 (PFIZER), MRNA, LNP-S, PF, 30 MCG/0.3 ML DOSE 1 2020 208 complet ed HISTORICA L INFORMATI ON - FROM OTHER REGISTRY, [facility] INFLUENZA, ADJUVANTED, QUADRIVALENT, PF 7 2019 205 complet ed HISTORICA L INFORMATI ON - FROM OTHER REGISTRY, [facility] INFLUENZA, ADJUVANTED, TRIVALENT, PF 6 2018 168 complet ed HISTORICA L INFORMATI ON - FROM OTHER REGISTRY, [facility] PNEUMOCOCCAL POLYSACCHARID E PPV23 2 2017 33 complet ed HISTORICA L INFORMATI ON - FROM OTHER REGISTRY, [facility] INFLUENZA, HIGH-DOSE, TRIVALENT, PF 5 2016 135 complet ed HISTORICA L INFORMATI ON - FROM OTHER REGISTRY, [facility] INFLUENZA, SPLIT VIRUS, QUADRIVALENT, PF 4 2015 150 complet ed HISTORICA L INFORMATI ON - FROM OTHER REGISTRY, [facility] PNEUMOCOCCAL CONJUGATE PCV 13 1 2015 133 complet ed HISTORICA L INFORMATI ON - FROM OTHER REGISTRY, [facility] INFLUENZA, WHOLE 3 2014 16 complet ed HISTORICA L INFORMATI ON - FROM OTHER REGISTRY, [facility] INFLUENZA, WHOLE 2 2013 16 complet ed HISTORICA L INFORMATI ON - FROM OTHER REGISTRY, [facility] VARICELLA 2013 21 complet ed HISTORICA L INFORMATI ON - FROM OTHER REGISTRY, [facility] ZOSTER LIVE 1 2013 121 complet ed HISTORICA L INFORMATI ON - FROM OTHER REGISTRY, [facility] INFLUENZA, SPLIT VIRUS, TRIVALENT, PRESERVATIVE 1 2012 141 complet ed HISTORICA L INFORMATI ON - FROM OTHER REGISTRY, [facility] NOVEL INFLUENZA-H1N 1-09, PRESERVATIVE- FREE 2008 126 complet ed CRUZ Etienne INFORMATI ON - FROM OTHER REGISTRY, [facility] tetanus and diphtheria toxoids, adsorbed, preservative free, for adult use (2 Lf of tetanus toxoid and 2 Lf of diphtheria toxoid) 1 2006 Unknown, Provider [id number] Sanofi Pasteur ([facility]) complet ed tetanus and diphtheri a toxoids, adsorbed, preservat yue free, for adult use (2 Lf of tetanus toxoid and 2 Lf of diphtheri a toxoid) DoD typhoid Vi capsular polysaccharid e vaccine 1 2006 Unknown, Provider [id number] Sanofi Pasteur ([facility]) complet ed typhoid Vi capsular polysacch aride vaccine DoD influenza virus vaccine, split virus (incl. purified surface antigen)-reti red CODE 1 2006 Unknown, Provider UNK 15 Unknown (UNK) complet ed influenza virus vaccine, split virus (incl. purified surface antigen)- retired CODE DoD anthrax vaccine 4 2003 Unknown, Provider [id number] [employer] [place] ([facility]) complet ed anthrax vaccine DoD anthrax vaccine 2 2003 Unknown, Provider [id number] [employer] [place] ([facility]) complet ed anthrax vaccine DoD hepatitis B vaccine, adult dosage 3 2003 Unknown, Provider [id number] [place] [address] ([facility]) complet ed hepatitis B vaccine, adult dosage DoD anthrax vaccine 2 2003 Unknown, Provider UNK 24 Unknown (UNK) complet ed anthrax vaccine DoD influenza virus vaccine, split virus (incl. purified surface antigen)-reti red CODE 1 2003 Unknown, Provider UNK 15 Unknown (UNK) complet ed influenza virus vaccine, split virus (incl. purified surface antigen)- retired CODE DoD hepatitis B vaccine, adult dosage 2 2003 Unknown, Provider UNK 43 Unknown (UNK) complet ed hepatitis B vaccine, adult dosage DoD anthrax vaccine 1 2003 Unknown, Provider UNK 24 Unknown (UNK) complet ed anthrax vaccine DoD hepatitis B vaccine, adult dosage 1 2002 Unknown, Provider UNK 43 Unknown (UNK) complet ed hepatitis B vaccine, adult dosage DoD typhoid Vi capsular polysaccharid e vaccine 1 2002 Unknown, Provider UNK 101 Unknown (UNK) complet ed typhoid Vi capsular polysacch aride vaccine DoD hepatitis A vaccine, adult dosage 2 1999 Unknown, Provider [id number] Merck (MSD) complet ed hepatitis A vaccine, adult dosage DoD hepatitis A vaccine, adult dosage 1 1998 Unknown, Provider UNK 52 Unknown (UNK) complet ed hepatitis A vaccine, adult dosage DoD trivalent poliovirus vaccine, live, oral 1 1996 Unknown, Provider UNK 02 Unknown (UNK) complet ed trivalent polioviru s vaccine, live, oral DoD tetanus and diphtheria toxoids, adsorbed, preservative free, for adult use (2 Lf of tetanus toxoid and 2 Lf of diphtheria toxoid) 1 1996 Unknown, Provider UNK 09 Unknown (UNK) complet ed tetanus and diphtheri a toxoids, adsorbed, preservat yue free, for adult use (2 Lf of tetanus toxoid and 2 Lf of diphtheri a toxoid) DoD measles, mumps and rubella virus vaccine 1 1967 Unknown, Provider UNK 03 Unknown (UNK) complet ed measles, mumps and rubella virus vaccine DoD Encounters Combined list of: 1) Encounters from Department of Veterans Affairs facilities going backup to the last 18 months, not all VA inpatient encounters are included; 2) Encounters from the Department of Defense facilities going backup to 280 months. Location Location Details Encounter Type Encounter Number Reason For Visit Attending Provider ADM Date DC Date Status Disposition Source [place] [id number] pre-dep [facility] screeni assess ent. VAUGHN GONZALEZ 08/29 Released w/o Limitations [place]([facility] OUTPATIENT [id number] 03/14 Released w/o Limitations Theater Fac[facility] OUTPATIENT [id number] 03/14 Released w/o Limitations Theater [facility] OUTPATIENT [id number] 03/15 Released w/o Limitations Theater Facilit y [facility] OUTPATIENT [id number] 03/18 Released w/o Limitations Theater Facilit y [facility] Out[facility] Encounter [id number] 08/06 [place] [facility] Outpatient Encounter [id number] 08/17 [facility] Outpatient Encounter [id number] Diagnos is: ICD-10- CM Z02.89 Encount er for other adminis trative examina JULES Padilla 03/29 [facility] Procedures Combined list of: 1) Procedures from Department of Veterans Affairs facilities going back up to thelast 18 months, not all MD non-surgical procedures are included; 2) All procedures from the Department of Defense facilities. Procedure Procedure Type Code Date Perfomer Comments Sour e SKIN TEST; TUBERCULOSIS, INTRADERMAL 7 [facility] SPECIAL REPORTS SUCH INSURANCE FORMS, MORE THAN THE INFORMATION CONVEYED IN THE USUAL MEDICAL COMMUNICATIONS OR STANDARD REPORTING FORM 5 [facility] PHYS/OTH QUALIFIED HEALTH VOLUNTEER SPECIALIST QUALIFIED,EDUCATION,TR AIN,LICENSURE/REGULATI ON (WHEN APPLICABLE) EDUC SER RENDERED TO PATS IN A GRP SETTING (EG,,OBESITY,O R DIABETIC INSTRUCT) 5 [facility] OPHTHALMOLOGICAL SERVICES: MEDICAL EXAMINATION AND EVALUATION WITH INITIATION OF DIAGNOSTIC AND TREATMENT PROGRAM; INTERMEDIATE, NEW PATIENT 4 [facility] OPHTHALMOLOGICAL SERVICES: MEDICAL EXAMINATION AND EVALUATION WITH INITIATION OF DIAGNOSTIC AND TREATMENT PROGRAM; INTERMEDIATE, NEW PATIENT 4 [facility] Skin Test Anergy tuberculin Skin Test Anergy tuberculin 14366 7 VAUGHN GONZALEZ [facility] Immunization Administration Each Additional Vaccine 7 VAUGHN GONZALEZ Typhoid Vaccine Vi Capsular Polysaccharide, For Intramus Use Typhoid Vaccine Vi Capsular Polysaccharide, For Intramus Use 42774 7 VAUGHN GONZALEZ Td Vaccine Td Vaccine 31267 7 VAUGHN GONZALEZ [facility] Immunization Administration One Vaccine Immunization Administration One Vaccine 72689 7 VAUGHN GONZALEZ [facility] Social History Combined list of available smoking, tobacco, and other social history from Department of Defense and Veterans Affairs facilities. Social History Type Response Date Comment [facility] e This section is an empty social history section. DoD
--- OUTSIDE RECORDS SUMMARY | 2025-04-10 09:09 | XMS_ITS | Encounter Summary ---
Author Organization [facility] Address [facility] [place] [address] Care Team Providers Care Facilities Maintenance Engineer Name Role Phone Cayden Martines MD Primary Care Provider [phone] Source Comments In the event this information is protected by the Federal Confidentiality of Alcohol and Drug AbusePatient Records regulations: The Federal rules restrict any use of the information to criminally investigate or prosecute any alcohol or drug abuse patient.[facility] Encounter Details Date Type Department Care Team (Late st Contact Info) Description 07/10/2024 Patient Msg Hematology [address] [address] [place] [address] [address] [place], [place] [id number] labs Social History Tobacco Use Types Packs/Day Years Used Date Smoking Tobacco: Former Cigarettes Q uit: 2020 Smokeless Tobacco: Never Alcohol Use Standard Drinks/Week Comments Not Currently 0 (1 standard drink = 0.6 oz pur e alcohol) PHQ-2 Answer Date Recorded PHQ-2 score 2 07/08/2024 Area Deprivation Index Answer Date Rui rded National Score (1-100), lower number is lower ri sk 87 04/12/2023 State Score (1-10), lower number is lower risk 8 04/12/2023 Data from: https://www.neighborhoodatlas.medicine.[facility]/. 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 Not on file Not o n file documented as of this encounter Plan of Treatment Upcoming Encounters Date Type Department Care Team (Late st Contact Info) Description 04/16/2025 10:45 AM EDT Results Only [facility] [place] [address] Myelodysplastic disease, not elsewhere classified (HCC) [C94.6]; Elevated ferritin level [R79.89] 04/16/2025 11:00 AM EDT Infusion Center Hematology/Oncolog y [address] [place] [address] [place]; Aranesp Inj 04/30/2025 10:45 AM EDT Results Only [facility] [place] [address] Myelodysplastic disease, not elsewhere classified (HCC) [C94.6]; Elevated ferritin level [R79.89] 04/30/2025 11:00 AM EDT Infusion Center Hematology/Oncolog y [address] [place] [address] [place]; Aranesp Inj 05/14/2025 10:45 AM EDT Results Only [facility] [address] [place], [place] [address] [address] Myelodysplastic disease, not elsewhere classified (HCC) [C94.6]; Elevated ferritin level [R79.89] 05/14/2025 11:00 AM EDT Infusion Center Hematology/Oncolog y [address] [place] [address] [place]; Aranesp Inj 05/28/2025 10:45 AM EDT Results Only [facility] [place] [address] Myelodysplastic disease, not elsewhere classified (HCC) [C94.6]; Elevated ferritin level [R79.89] 05/28/2025 11:00 AM EDT Infusion Center Hematology/[place] [address] [place]; Aranesp Inj 06/05/2025 12:45 PM EDT Office Visit [facility] Ophthalmology [address] [place] [address] Sheryl Mckee, OD [address] [place] [address] LVM R/S from 06/07/2025 06/11/2025 10:45 AM EDT Results Only [facility] [place] [address] Myelodysplastic disease, not elsewhere classified (HCC) [C94.6]; Elevated ferritin level [R79.89] 06/11/2025 11:00 AM EDT Infusion Center Hematology/[place] [address] [place]; Aranesp Inj 06/25/2025 10:45 AM EDT Results Only [facility] [place] [address] Myelodysplastic disease, not elsewhere classified (HCC) [C94.6]; Elevated ferritin level [R79.89] 06/25/2025 11:00 AM EDT Infusion Center Hematology[place] [address] [place]; Aranesp Inj 07/09/2025 10:20 AM EDT Visit (SP) Office Hematology [address] [place] [address] [place] [address] [place] [address] 6 month follow up 10/02/2025 11:30 AM EST Visit (SP) Office Hematology/Medical Oncology [address] [place] [address] Comfort Leavitt APRN.NUTRITION REPRESENTATIVE [address] [place] [address] 6 month OV f/u with labs prior documented as of this encounter Visit Diagnoses Not on filedocumented in this encounter Care Teams Facilities Maintenance Engineer Relationship Specialty Start Date End Date Cayden Martines MD [address] [place] [address] PCP - General Family Medicine 05/24/23 documented as of this encounter
--- OUTSIDE RECORDS SUMMARY | 2025-04-10 09:09 | XMS_ITS | Encounter Summary ---
Author Organization [facility] Address [facility] [place] [address] Care Team Providers Care Sharepoint Developer Name Role Phone Cayden Martines MD Primary Care Provider [phone] Source Comments In the event this information is protected by the Federal Confidentiality of Alcohol and Drug AbusePatient Records regulations: The Federal rules restrict any use of the information to criminally investigate or prosecute any alcohol or drug abuse patient.[facility] Encounter Details Date Type Department Care Team (Late st Contact Info) Description 07/26/2024 Patient Msg [facility]ematology [address] [place] [address] [place] [address] [place], [place] [phone] iron Social History Tobacco Use Types Packs/Day Years [...] is lower risk 8 04/12/2023 Data from: https://www.neighborhoodatlas.medicine.[facility]/. 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 Not on file Not o n file documented as of this encounter Plan of Treatment Upcoming Encounters Date Type Department Care Team (Late st Contact Info) Description 04/16/2025 10:45 AM EDT Results Only [facility] [place] [address] Myelodysplastic disease, not elsewhere classified (HCC) [C94.6]; Elevated ferritin level [R79.89] 04/16/2025 11:00 AM EDT Infusion Center Hematology/Oncolog y [address] [place] [address] [place]; Aranesp Inj 04/30/2025 10:45 AM EDT Results Only [facility] [place] [address] Myelodysplastic disease, not elsewhere classified (HCC) [C94.6]; Elevated ferritin level [R79.89] 04/30/2025 11:00 AM EDT Infusion Center Hematology/Oncolog y [address] [place] [address] [place]; Aranesp Inj 05/14/2025 10:45 AM EDT Results Only [facility] [address] [place], [place] [address], [place] [address] Myelodysplastic disease, not elsewhere classified (HCC) [C94.6]; Elevated ferritin level [R79.89] 05/14/2025 11:00 AM EDT Infusion Center Hematology/Oncolog y [address] [place] [address] [place]; Aranesp Inj 05/28/2025 10:45 AM EDT Results Only [facility] [address] Myelodysplastic disease, not elsewhere classified (HCC) [C94.6]; Elevated ferritin level [R79.89] 05/28/2025 11:00 AM EDT Infusion Center Hematology[place] [address] [place]; Aranesp Inj 06/05/2025 12:45 PM EDT Office Visit [facility] Ophthalmology [address] [place] [address] Sheryl Mckee, OD [address] [place] [address] LVM R/S from 06/07/2025 06/11/2025 10:45 AM EDT Results Only [facility] [address] Myelodysplastic disease, not elsewhere classified (HCC) [C94.6]; Elevated ferritin level [R79.89] 06/11/2025 11:00 AM EDT Infusion Center Hematology[place] [address] [place]; Aranesp Inj 06/25/2025 10:45 AM EDT Results Only [facility] [address] Myelodysplastic disease, not elsewhere classified (HCC) [C94.6]; Elevated ferritin level [R79.89] 06/25/2025 11:00 AM EDT Infusion Center Hematology[place] [address] [place]; Aranesp Inj 07/09/2025 10:20 AM EDT Visit (SP) Office Hematology [address] [place] [address] [place] [address] [place] [address] 6 month follow up 10/02/2025 11:30 AM EST Visit (SP) Office Hematology/Medical Oncology [address] [place] [address] Comfort Leavitt APRN.REHABILITATION WORKER [address] [place] [address] 6 month OV f/u with labs prior documented as of this encounter Visit Diagnoses Not on filedocumented in this encounter Care Teams Sharepoint Developer Relationship Specialty Start Date End Date Cayden Martines MD [address] [place] [address] PCP - General Family Medicine 05/24/23 documented as of this encounter
--- OUTSIDE RECORDS SUMMARY | 2025-04-10 09:09 | XMS_ITS | Encounter Summary ---
Author Organization [facility] Address [facility] [place] [address] Care Team Providers Care Chief School Finance Officer Name Role Phone Cayden Martines MD Primary Care Provider [phone] Source Comments In the event this information is protected by the Federal Confidentiality of Alcohol and Drug AbusePatient Records regulations: The Federal rules restrict any use of the information to criminally investigate or prosecute any alcohol or drug abuse patient.[facility] Encounter Details Date Type Department Care Team (Late st Contact Info) Description 08/22/2024 Patient Msg Hematology [address] [facility] [place] [address] [place] [address] [address] [place], [place] [phone] iron studies are improving Social History Tobacco Use Types Packs/Day Years [...] is lower risk 8 04/12/2023 Data from: https://www.neighborhoodatlas.medicine.[facility].edu/. 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 Not on file Not o n file documented as of this encounter Plan of Treatment Upcoming Encounters Date Type Department Care Team (Late st Contact Info) Description 04/16/2025 10:45 AM EDT Results Only [facility] [place] [address] Myelodysplastic disease, not elsewhere classified (HCC) [C94.6]; Elevated ferritin level [R79.89] 04/16/2025 11:00 AM EDT Infusion Center Hematology/Oncolog y [address] [place] [address] [place]; Aranesp Inj 04/30/2025 10:45 AM EDT Results Only [facility] [place] [address] Myelodysplastic disease, not elsewhere classified (HCC) [C94.6]; Elevated ferritin level [R79.89] 04/30/2025 11:00 AM EDT Infusion Center Hematology/Oncolog y [address] [place] [address] [place]; Aranesp Inj 05/14/2025 10:45 AM EDT Results Only [facility] [address] [place] [address] Myelodysplastic disease, not elsewhere classified (HCC) [C94.6]; Elevated ferritin level [R79.89] 05/14/2025 11:00 AM EDT Infusion Center Hematology/Oncolog y [address] [place] [address] [place]; Aranesp Inj 05/28/2025 10:45 AM EDT Results Only [facility] [place] [address] Myelodysplastic disease, not elsewhere classified (HCC) [C94.6]; Elevated ferritin level [R79.89] 05/28/2025 11:00 AM EDT Infusion Center Hematology[place] [address] [place]; Aranesp Inj 06/05/2025 12:45 PM EDT Office Visit OPHT Ophthalmology [address] [place] [address] Sheryl Mckee, OD [address] [facility] [place] [address] LVM R/S from 06/07/2025 06/11/2025 10:45 AM EDT Results Only [facility] [place] [address] Myelodysplastic disease, not elsewhere classified (HCC) [C94.6]; Elevated ferritin level [R79.89] 06/11/2025 11:00 AM EDT Infusion Center Hematology[place] [address] [place]; Aranesp Inj 06/25/2025 10:45 AM EDT Results Only [facility] [place] [address] Myelodysplastic disease, not elsewhere classified (HCC) [C94.6]; Elevated ferritin level [R79.89] 06/25/2025 11:00 AM EDT Infusion Center Hematology[place] [address] [place]; Aranesp Inj 07/09/2025 10:20 AM EDT Visit (SP) Office Hematology [address] [place] [address] [place] [address] [place] [address] 6 month follow up 10/02/2025 11:30 AM EST Visit (SP) Office Hematology/Medical Oncology [address] [place], [place] [phone] Comfort Leavitt APRN.CORROSION CONTROL FITTER [address] [place], [place] [id number] 6 month OV f/u with labs prior documented as of this encounter Visit Diagnoses Not on filedocumented in this encounter Care Teams Chief School Finance Officer Relationship Specialty Start Date End Date Cayden Martines MD [address] [place] [address] PCP - General Family Medicine 05/24/23 documented as of this encounter
--- OUTSIDE RECORDS SUMMARY | 2025-04-10 09:09 | XMS_ITS | Encounter Summary ---
Author Organization [facility] Address [facility] [place] [address] Care Team Providers Care Precise Winder Name Role Phone Cayden Martines MD Primary Care Provider [phone] Source Comments In the event this information is protected by the Federal Confidentiality of Alcohol and Drug AbusePatient Records regulations: The Federal rules restrict any use of the information to criminally investigate or prosecute any alcohol or drug abuse patient.[facility] Encounter Details Date Type Department Care Team (Late st Contact Info) Description 08/08/2024 Patient Msg Hematology [address] [place] [address] [place] [address] [address] [place], [place] [phone] labs reveiwed Social History Tobacco Use Types Packs/Day Years [...] is lower risk 8 04/12/2023 Data from: https://www.neighborhoodatlas.medicine.[facility].edu/. 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 [place] [address] Myelodysplastic disease, not elsewhere classified (HCC) [C94.6]; Elevated ferritin level [R79.89] 04/16/2025 11:00 AM EDT Infusion Center Hematology/Oncolog y [address] [place] [address] [place]; Aranesp Inj 04/30/2025 10:45 AM EDT Results Only [facility] [place] [address] Myelodysplastic disease, not elsewhere classified (HCC) [C94.6]; Elevated ferritin level [R79.89] 04/30/2025 11:00 AM EDT Infusion Center Hematology/Oncolog y [address] [place] [address] [place]; Aranesp Inj 05/14/2025 10:45 AM EDT Results Only [facility] [address] [place] [address] Myelodysplastic disease, not elsewhere classified (HCC) [C94.6]; Elevated ferritin level [R79.89] 05/14/2025 11:00 AM EDT Infusion Center Hematology/Oncolog y [address] [place] [address] [place]; Aranesp Inj 05/28/2025 10:45 AM EDT Results Only [facility] [place] [address] Myelodysplastic disease, not elsewhere classified (HCC) [C94.6]; Elevated ferritin level [R79.89] 05/28/2025 11:00 AM EDT Infusion Center Hematology[place] [address] [place]; Aranesp Inj 06/05/2025 12:45 PM EDT Office Visit OPHT Ophthalmology [address] [facility] [place] [address] Sheryl Mckee, OD [address] [facility] [place] [address] LVM R/S from 06/07/2025 06/11/2025 10:45 AM EDT Results Only [facility] [place] [address] Myelodysplastic disease, not elsewhere classified (HCC) [C94.6]; Elevated ferritin level [R79.89] 06/11/2025 11:00 AM EDT Infusion Center Hematology[place] [address] [place]; Aranesp Inj 06/25/2025 10:45 AM EDT Results Only [facility] [place] [address] Myelodysplastic disease, not elsewhere classified (HCC) [C94.6]; Elevated ferritin level [R79.89] 06/25/2025 11:00 AM EDT Infusion Center Hematology[place] [address] [place]; Aranesp Inj 07/09/2025 10:20 AM EDT Visit (SP) Office Hematology [address] [place] [address] [place] [address] [place] [address] 6 month follow up 10/02/2025 11:30 AM EST Visit (SP) Office Hematology/Medical Oncology [address] [place], [place] [phone] Comfort Leavitt APRN.TWISTING OPERATOR [address] [place], [place] [id number] 6 month OV f/u with labs prior documented as of this encounter Visit Diagnoses Not on filedocumented in this encounter Care Teams Precise Winder Relationship Specialty Start Date End Date Cayden Martines MD [address] [place] [address] PCP - General Family Medicine 05/24/23 documented as of this encounter
--- OUTSIDE RECORDS SUMMARY | 2025-04-10 09:09 | XMS_ITS | Clinical Summary ---
Author Organization [facility] Address [address] [place] [address] Phone Care Team Providers Care Pouncer Machine Name Role Phone Unavailable Primary Care Provider Unavailabl e Social History Tobacco Use Types Packs/Day Years Used Date Smoking Tobacco: Never Assessed Sex and Gender Information Value Date Recorded Sex Assigned at Not on file Legal Sex Male 8:32 AM EST Gender Identity Not on file Sexual Orientation Not on file Plan of Treatment Not on file
--- OUTSIDE RECORDS SUMMARY | 2025-04-10 09:09 | XMS_ITS | Encounter Summary ---
Author Organization [facility] Address [facility] [place] [address] Care Team Providers Care Rim Roller Operator Name Role Phone Cayden Martines MD Primary Care Provider [phone] Source Comments In the event this information is protected by the Federal Confidentiality of Alcohol and Drug AbusePatient Records regulations: The Federal rules restrict any use of the information to criminally investigate or prosecute any alcohol or drug abuse patient.[facility] Encounter Details Date Type Department Care Team (Late st Contact Info) Description 09/20/2024 Patient Msg Hematology [address] [facility] [place] [address] [place] [address] [address] [place], [place] [phone] labs reviewed Social History Tobacco Use Types Packs/Day Years [...] is lower risk 8 04/12/2023 Data from: https://www.neighborhoodatlas.medicine.[facility]/. 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 Not o n file documented as of this encounter Plan of Treatment Upcoming Encounters Date Type Department Care Team (Late st Contact Info) Description 04/16/2025 10:45 AM EDT Results Only [facility] [place] [address] Myelodysplastic disease, not elsewhere classified (HCC) [C94.6]; Elevated ferritin level [R79.89] 04/16/2025 11:00 AM EDT Infusion Center Hematology/Oncolog y [address] [place] [address] [place]; Aranesp Inj 04/30/2025 10:45 AM EDT Results Only [facility] [place] [address] Myelodysplastic disease, not elsewhere classified (HCC) [C94.6]; Elevated ferritin level [R79.89] 04/30/2025 11:00 AM EDT Infusion Center Hematology/Oncolog y [address] [place] [address] [place]; Aranesp Inj 05/14/2025 10:45 AM EDT Results Only [facility] [address] [place] [address] Myelodysplastic disease, not elsewhere classified (HCC) [C94.6]; Elevated ferritin level [R79.89] 05/14/2025 11:00 AM EDT Infusion Center Hematology/Oncolog y [address] [place] [address] [place]; Aranesp Inj 05/28/2025 10:45 AM EDT Results Only [facility] [place] [address] Myelodysplastic disease, not elsewhere classified (HCC) [C94.6]; Elevated ferritin level [R79.89] 05/28/2025 11:00 AM EDT Infusion Center Hematology[place] [address] [place]; Aranesp Inj 06/05/2025 12:45 PM EDT Office Visit [facility] Ophthalmology [address] [place] [address] Sheryl Mckee, OD [address] [place] [address] LVM R/S from 06/07/2025 06/11/2025 10:45 AM EDT Results Only [facility] [place] [address] Myelodysplastic disease, not elsewhere classified (HCC) [C94.6]; Elevated ferritin level [R79.89] 06/11/2025 11:00 AM EDT Infusion Center Hematology[place] [address] [place]; Aranesp Inj 06/25/2025 10:45 AM EDT Results Only [facility] [place] [address] Myelodysplastic disease, not elsewhere classified (HCC) [C94.6]; Elevated ferritin level [R79.89] 06/25/2025 11:00 AM EDT Infusion Center Hematology[place] [address] [place]; Aranesp Inj 07/09/2025 10:20 AM EDT Visit (SP) Office Hematology [address] [place] [address] [place] [address] [place] [address] 6 month follow up 10/02/2025 11:30 AM EST Visit (SP) Office Hematology/Medical Oncology [address] [place], [place] [phone] Comfort Leavitt APRN.TALENT ACQUISITION SOURCER [address] [place] [address] 6 month OV f/u with labs prior documented as of this encounter Visit Diagnoses Not on filedocumented in this encounter Care Teams Rim Roller Operator Relationship Specialty Start Date End Date Cayden Martines MD [address] [place] [address] PCP - General Family Medicine 05/24/23 documented as of this encounter
--- OUTSIDE RECORDS SUMMARY | 2025-04-10 09:09 | XMS_ITS | Encounter Summary ---
Author Organization [facility] Address [facility] [place] [address] Care Team Providers Care Sr Technical Sales Consultant Name Role Phone Cayden Martines MD Primary Care Provider [phone] Source Comments In the event this information is protected by the Federal Confidentiality of Alcohol and Drug AbusePatient Records regulations: The Federal rules restrict any use of the information to criminally investigate or prosecute any alcohol or drug abuse patient.[facility] Encounter Details Date Type Department Care Team (Late st Contact Info) Description 02/13/2024 Patient Msg Hematology [address] [facility] [place] [address] [place] [address] [address] [place], [place] [phone] liver biopsy slides Social History Tobacco Use Types Packs/Day Years Used Date Smoking Tobacco: Former Cigarettes Q uit: 2020 Smokeless Tobacco: Never Alcohol Use Standard Drinks/Week Comments Not Currently 0 (1 standard drink = 0.6 oz pur e alcohol) PHQ-2 Answer Date Recorded PHQ-2 score 0 12/26/2023 Area Deprivation Index Answer Date Rui rded National Score (1-100), lower number is lower ri sk 87 04/12/2023 State Score (1-10), lower number is lower risk 8 04/12/2023 Data from: https://www.neighborhoodatlas.medicine.[facility]/. 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 Not o n file documented as of this encounter Plan of Treatment Upcoming Encounters Date Type Department Care Team (Late st Contact Info) Description 04/16/2025 10:45 AM EDT Results Only [facility] [place] [address] Myelodysplastic disease, not elsewhere classified (HCC) [C94.6]; Elevated ferritin level [R79.89] 04/16/2025 11:00 AM EDT Infusion Center Hematology/Oncolog y [address] [place] [address] [place]; Aranesp Inj 04/30/2025 10:45 AM EDT Results Only [facility] [place] [address] Myelodysplastic disease, not elsewhere classified (HCC) [C94.6]; Elevated ferritin level [R79.89] 04/30/2025 11:00 AM EDT Infusion Center Hematology/Oncolog y [address] [place] [address] [place]; Aranesp Inj 05/14/2025 10:45 AM EDT Results Only [facility] [address] [place] [address] Myelodysplastic disease, not elsewhere classified (HCC) [C94.6]; Elevated ferritin level [R79.89] 05/14/2025 11:00 AM EDT Infusion Center Hematology/Oncolog y [address] [place] [address] [place]; Aranesp Inj 05/28/2025 10:45 AM EDT Results Only [facility] [place] [address] Myelodysplastic disease, not elsewhere classified (HCC) [C94.6]; Elevated ferritin level [R79.89] 05/28/2025 11:00 AM EDT Infusion Center Hematology[place] [address] [place]; Aranesp Inj 06/05/2025 12:45 PM EDT Office Visit [facility] Op[facility] [address] [facility] [place] [address] Sheryl Mckee, OD [address] [place] [address] LVM R/S from 06/07/2025 06/11/2025 10:45 AM EDT Results Only [facility] [place] [address] Myelodysplastic disease, not elsewhere classified (HCC) [C94.6]; Elevated ferritin level [R79.89] 06/11/2025 11:00 AM EDT Infusion Center Hematology[place] [address] [place]; Aranesp Inj 06/25/2025 10:45 AM EDT Results Only [facility] [place] [address] Myelodysplastic disease, not elsewhere classified (HCC) [C94.6]; Elevated ferritin level [R79.89] 06/25/2025 11:00 AM EDT Infusion Center Hematology[place] [address] [place]; Aranesp Inj 07/09/2025 10:20 AM EDT Visit (SP) Office Hematology [address] [place] [address] [place] [address] [place] [address] 6 month follow up 10/02/2025 11:30 AM EST Visit (SP) Office Hematology/Medical Oncology [address] [place], [place] [phone] Comfort Leavitt APRN.MEDICAL RECORD CODER [address] [place] [address] 6 month OV f/u with labs prior documented as of this encounter Visit Diagnoses Not on filedocumented in this encounter Care Teams Sr Technical Sales Consultant Relationship Specialty Start Date End Date Cayden Martines MD [address] [place] [address] PCP - General Family Medicine 05/24/23 documented as of this encounter
--- OUTSIDE RECORDS SUMMARY | 2025-04-10 09:09 | XMS_ITS | Clinical Summary ---
Author Organization [facility] Address [address] [place] [address] Care Team Providers Care Manager Data Warehousing Name Role Phone Cayden Martines MD Primary Care Provider [phone] Active Problems Problem Noted Date Diagnosed Date ASH (obstructive sleep apnea) 02/24/2022 Claudication 12/16/2021 Abnormal ultrasound 12/09/2021 Shortness of breath 11/06/2021 PAD (peripheral artery disease) 11/06/2021 Iron overload 08/24/2021 Polyp of colon 08/24/2021 Acquired spondylolisthesis of lumbosacral region 07/28/2021 History of back surgery 07/28/2021 Liver mass 07/17/2021 Overview (08/12/2022): Likely hemangioma on US 07/16/21 Hereditary hemochromatosis 07/03/2021 Lumbar degenerative disc disease 05/05/2021 Nicotine dependence 04/22/2021 Sciatica of left side due to displacement of lumbar intervertebral disc 10/07/2019 Spondylosis of lumbar region without myelopathy or radiculopathy 10/07/2019 Degeneration of lumbosacral intervertebral disc with acute herniation 10/07/2019 Intervertebral disc stenosis of neural canal of lumbar region 10/07/2019 Herniated nucleus pulposus, L2-3 left 10/07/2019 Unable to ambulate 10/04/2019 Weakness of left leg 10/04/2019 Numbness and tingling of left leg 10/04/2019 Acute back pain with sciatica, left 10/04/2019 Lumbar radiculopathy 10/04/2019 Severe left groin pain 09/29/2019 Left inguinal hernia 09/03/2019 Chronic obstructive pulmonary disease 07/23/2015 Immunizations Immunization Administration Dates Next Due Anthrax 06/02/2004, 4,11/24/2003,11/10 Covid-19, Pfizer Bivalent Bart radha, (Age 12y+), Im, 30 Mcg/0e 07/29/2022 Hep A, Adult 07/30/2000,08/22/1999 Hep B, adult 12/08/2003,11/20/2003,05/11/2003 Influenza, High Dose Seasona l, Preservative Free 07/13/2018,07/07/2017 Influenza, Seasonal, Quadriv alent, Adjuvanted 08/17/2021,08/11/2020 Influenza, Unspecified 07/03/2015,2013,07/23/2013,08/23,11/20/2003 Influenza, adjuvanted, triva lent, preservative-free 08/09/2019 Influenza, injectable, quadr ivalent, preservative free 07/09/2016 MMR 08/11/1970 OPV 05/14/1997 Pfizer SARS-CoV-2 Vaccination 07/29/2021, 021,11/25/2020 Pneumococcal Conjugate PCV 13 07/01/2016 Pneumococcal Polysaccharide PPSV23 01/17/2018 Typhoid, ViCPs 08/29/2007,05/11/2003 Varicella 11/23/2013 Zoster, live 11/23/2013 Family History Medical History Relation Name Comments Cancer Brother 1 prostate Cancer Father prostate Dementia Mother Diabetes Mother Heart disease Mother CHF Relation Name Status Comments Brother 1 Alive Brother 2 Alive Father Mother Alive Sister Alive Social History Tobacco Use Types Packs/Day Years Used Date Smoking Tobacco: Former Cigarettes Q uit: 02/17/2022 Smokeless Tobacco: Never Alcohol Use Standard Drinks/Week Comments Yes 0 (1 standard drink = 0.6 oz pur e alcohol) Sex and Gender Information Value Date Recorded Sex Assigned at Male 08/19/2022 6:44 PM EDT Legal Sex Male 4:15 PM EDT Gender Identity Male 08/19/2022 6:44 PM EDT Sexual Orientation Straight 08/19/2022 6: 44 PM EDT Last Filed Vital Signs Vital Sign Reading Time Taken Comments Blood Pressure 153/82 07/22/2022 8:00 AM EDT Pulse 84 07/22/2022 8:00 AM EDT Temperature 36.4 C (97.5 F) 07/22/2022 8:00 AM EDT Respiratory Rate 20 07/22/2022 8:00 AM EDT Oxygen Saturation 93% 07/22/2022 8:00 AM EDT Inhaled Oxygen Concentration - - Weight 80.7 kg (178 lb) 07/22/2022 8:00 AM EDT Height 180.3 cm (5' 11 ) 07/22/2022 8:00 AM EDT Body Mass Index 24.83 07/22/2022 8:00 AM EDT Plan of Treatment Health Maintenance Due Date Last Done Comments Depression Screening 1962 DTaP/Tdap/Td Vaccines (1 - Tdap) 1967 IPV Vaccines (2 of 3 - Adult catch-up series) 06/11/1997 05/14/1997 Hepatitis B Vaccines (3 of 3 - 19+ 3-dose series) 02/02/2004 12/08/2003, 11/20/2003, 05/11/2003 Zoster Vaccines (2 of 3) 01/18/2014 11/23/2013, 11/01 RSV Immunization for Adults (1 - 1-dose 75+ series) 2023 COVID-19 Vaccine ( - season) 2024 07/29/2022, 07/29/2021, 12/17/2020, Additional history exists Influenza Vaccine (Season Ended) 2025 08/17/2021, 08/11/2020, 08/09/2019, Additional history exists Lipid Panel 02/03/2027 02/03/2022, 12/01, 12/05/2020, Additional history exists Hepatitis A Vaccines Aged Out 07/30/2000, 08/22/19 99 No longer eligible based on patient's age to complete this topic Pneumococcal Vaccine: 50+ Years Completed 01/17/2018, 07/01/2016 Colorectal Cancer Screening Discontinued FIT-DNA Discontinued 08/21/2019, 08/21/2019 Hepatitis C Screening Completed 07/29/2021 CT Colonography Discontinued Colonoscopy Discontinued FIT Discontinued FOBT Discontinued HIB Vaccines Aged Out No longer eligi ble based on patient's age to complete this topic HPV Vaccines Aged Out No longer eligi ble based on patient's age to complete this topic Meningococcal B Vaccine Aged Out No l onger eligible based on patient's age to complete this topic Meningococcal Vaccine Aged Out No chanda mignon eligible based on patient's age to complete this topic RSV Immunization under 20 Months Aged Out No longer eligible based on patient's age to complete this topic Rotavirus Vaccines Aged Out No longer eligible based on patient's age to complete this topic Sigmoidoscopy Discontinued Procedures Procedure Name Priority Date/Time Associated Diagnosis Comments LIPID PANEL Routine 02/03/2022 8:12 AM EDT HEPATITIS C ANTIBODY Routine 07/29/2021 8:01 AM EDT [employer] [facility] FECAL DNA COLORECTAL CANCER SCREENING (COLOGUARD) Routine 08/21/2019 8:15 AM EDT from Last 3 Months or Most Recently Relevant to Health Maintenance Results * Lipid panel (02/03/2022 8:12 AM EDT) Pathologist [facility] Cholesterol, Total 108 0 - 199 mg/dL 02/03/2022 8:46 AM EDT [facility] Comment:ATP III Cholesterol classification is Desirable. TRIGLYCERIDE 60 0 - 150 mg/dL 02/03/2022 8:46 AM EDT [facility] Comment:ATP III Triglyceride s Classification is Normal. HDL CHOLESTEROL 49 40 - 59 mg/dL 02/03/2022 8:46 AM EDT [facility] Comment: ATP III HDL Cholesterol Classification is Desirable. Expected Values: Males: >55 = No Risk 35-55 = Moderate Risk <35 = High Risk Females: >65 = No Risk 45-65 = Moderate Risk <45 = High Risk NCEP Guidelines: Third Report February 2001 >59 = negative risk factor for CHD <40 = major risk factor for CHD [facility] LDL CHOLESTEROL CALCULATED 47 0 - 129 mg/dL 02/03/2022 8:46 AM EDT [facility] Comment:ATP III LDL Classifi cation is Optimal. 02/03/2022 8:12 AM EDT 02/03/2022 8:12 AM EDT us Legacy Conversion Provider LAB BLOOD ORDERABLES Final Result Performing Organization Address [facility]/ZIP Co de Phone Number [facility] [address] [place] [address], [facility] [address] [place] [address] * Hepatitis C antibody (07/29/2021 8:01 AM EDT) [facility] HEPATITIS C ANTIBODY INTERPRETATION Non-react yue 07/29/2021 4:12 PM EDT [facility] 07/29/2021 8:01 AM EDT 07/29/2021 3:28 PM EDT us Legacy Conversion Provider LAB BLOOD ORDERABLES Final Result Performing Organization Address [facility] de Phone Number [facility] [address] [place] [address], [facility] [address] [place] [address] * [facility] FECAL DNA COLORECTAL CANCER SCREENING (COLOGUARD) (08/21/2019 8:15 AM EDT) 08/21/2019 8:15 AM EDT [facility] - 08/29/2019 8:15 AM EDT This order was created through External Result Entry us Legacy Conversion Provider LAB HISTORICAL PROCED URES Final Result Performing Organization Address [facility] de Phone Number [facility] [address] [place] [address], from Last 3 Months or Most Recently Relevant to Health Maintenance Care Teams Manager Data Warehousing Relationship Specialty Start Date End Date Cayden Martines MD [facility] [place] [address] PCP - General 11/08/18
--- OUTSIDE RECORDS SUMMARY | 2025-04-10 09:09 | XMS_ITS | Encounter Summary ---
Author Organization [facility] Address [address] [place] [address] Care Team Providers Care Mid Level Provider Name Role Phone Cayden Martines MD Primary Care Provider [phone] Source Comments In the event this information is protected by the Federal Confidentiality of Alcohol and Drug AbusePatient Records regulations: The Federal rules restrict any use of the information to criminally investigate or prosecute any alcohol or drug abuse patient.[facility] Encounter Details Date Type Department Care Team (Late st Contact Info) Description 02/07/2024 Lab Requisition [facility] [address] [place] [address] [place] [address] [place] [address] Person encountering health services to consult on behalf of another person Social History Tobacco Use Types Packs/Day Years [...] is lower risk 8 04/12/2023 Data from: https://www.neighborhoodatlas.medicine.[employer].edu/. 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 Not on file Not on file Not o n file documented as of this encounter Plan of Treatment Upcoming Encounters Date Type Department Care Team (Late st Contact Info) Description 04/16/2025 10:45 AM EDT Results Only Counts include 234 beds at the [facility] [place] [address] Myelodysplastic disease, not elsewhere classified (HCC) [C94.6]; Elevated ferritin level [R79.89] 04/16/2025 11:00 AM EDT Infusion Center Hematology/Oncolog y [facility] [address] [facility] [place] [address] [place]; Aranesp Inj 04/30/2025 10:45 AM EDT Results Only Counts include 234 beds at the [facility] [place] [address] Myelodysplastic disease, not elsewhere classified (HCC) [C94.6]; Elevated ferritin level [R79.89] 04/30/2025 11:00 AM EDT Infusion Center Hematology/Oncolog y [facility] [place] [address] [place]; Aranesp Inj 05/14/2025 10:45 AM EDT Results Only Counts include 234 beds at the [facility] [place] [address] Myelodysplastic disease, not elsewhere classified (HCC) [C94.6]; Elevated ferritin level [R79.89] 05/14/2025 11:00 AM EDT Infusion Center Hematology/Oncolog y [facility] [place] [address] [place]; Aranesp Inj 05/28/2025 10:45 AM EDT Results Only Counts include 234 beds at the [facility] [place] [address] Myelodysplastic disease, not elsewhere classified (HCC) [C94.6]; Elevated ferritin level [R79.89] 05/28/2025 11:00 AM EDT Infusion Center Hematology[place] [address] [place]; Aranesp Inj 06/05/2025 12:45 PM EDT Office Visit [facility] Ophthalmology [address] [place] [address] Sheryl Mckee, OD [address] [place] [address] LVM R/S from 06/07/2025 06/11/2025 10:45 AM EDT Results Only Counts include 234 beds at the [facility] [place] [address] Myelodysplastic disease, not elsewhere classified (HCC) [C94.6]; Elevated ferritin level [R79.89] 06/11/2025 11:00 AM EDT Infusion Center Hematology[place] [address] [place]; Aranesp Inj 06/25/2025 10:45 AM EDT Results Only Counts include 234 beds at the [facility] [place] [address] Myelodysplastic disease, not elsewhere classified (HCC) [C94.6]; Elevated ferritin level [R79.89] 06/25/2025 11:00 AM EDT Infusion Center Hematology[place] [address] [place]; Aranesp Inj 07/09/2025 10:20 AM EDT Visit (SP) Office Hematology [address] [place] [address] [place] [address] [place] [address] 6 month follow up 10/02/2025 11:30 AM EST Visit (SP) Office Hematology/Medical Oncology [address] [place] [address] Comfort Leavitt APRN.SENIOR MECHANICAL ENGINEER [address] [place] [address] 6 month OV f/u with labs prior documented as of this encounter Procedures Procedure Name Priority Date/Time Associated Diagnosis Comments OUTSIDE SURG PATH SLIDE REVIEW Routine 02/07/2024 5:43 PM EDT Person encountering health services to consult on behalf of another person documented in this encounter Results * OUTSIDE SURG PATH SLIDE REVIEW (02/07/2024 5:43 PM EDT) Case Report Surgical Pathology Report Case: [id number] Authorizing Provider: Brenda Dawson MD Collected: 02/07/2024 05:43 PM Ordering Location: [facility] Received: 02/07/2024 05:44 PM [facility] Pathologist: Yamilka Aguirre MD Specimen: Block(s) and/or Slide(s), 6 SLIDES/1 BLOCK [id number] 02/08/2024 4:19 PM EDT [facility] FINAL DIAGNOSIS Outside slides, [id number], 10/09/2021 Liver, biopsy (A1, special stains): - Liver parenchyma with hepatocellular iron deposition. - See comment. 02/08/2024 4:19 PM EDT [facility] at 1619 EDT Diagnosis Comment The biopsy reveals preserved liver architecture. The portal tracts contain minimal lymphoplasmacytic inflammation with no evidence of interface activity or bile duct injury. The lobular parenchyma exhibits no significant steatosis, cholestasis, or lobular inflammation. Special stains were provided for review. The trichrome stain is under-stained. The reticulin stain highlights focal sinusoidal fibrosis. The PAS-D stain is negative for intracytoplasmic globules in hepatocytes. The iron stain highlights diffuse hepatocellular iron deposition (3+/4). Iron deposition in histiocytes is also present. 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 There is no evidence of advanced fibrosis. 02/08/2024 4:19 PM EDT [facility] Performing Lab Diagnostic interpretation performed at [facility], [address] [place] [address] CLIA# [id number] Information Systems Manager: Berry Enrique M.D. 02/08/2024 4:19 PM EDT [facility] Blocks or Slides PARAFFIN EMBEDDED TISSUE BLOCK SPECIMEN / Unknown 02/07/2024 5:43 PM EDT 02/07/2024 5:44 PM EDT us Brenda Dawson MD SURGICAL PATHOLOGY Final Result [facility] [address] [place] [address] [place] [address], documented in this encounter Visit Diagnoses Diagnosis Person encountering health services to consult on behalf of another person Other person consulting on behalf of another person documented in this encounter Care Teams Mid Level Provider Relationship Specialty Start Date End Date Cayden Martines MD [address] [place] [address] PCP - General Family Medicine 05/24/23 documented as of this encounter
--- OUTSIDE RECORDS SUMMARY | 2025-04-10 09:09 | XMS_ITS | Clinical Summary ---
Author Organization [facility] Address [facility] [place] [address] Care Team Providers Care Management Professionals Name Role Phone Cayden Martines MD Primary Care Provider [phone] Allergies No known active allergies Medications TRELEGY ELLIPTA 200-62.5-25 mcg inhalation powder Inhale 1 Puff as instructed once daily. 3 Active montelukast (SINGULAIR) 10 mg tablet Take by mouth. 3 Active atorvastatin (LIPITOR) 20 mg tablet Take by mouth. 3 Active fluticasone (FLONASE) 50 mcg/actuation nasal spray Use in the nose. 2 Active dupilumab (DUPIXENT PEN) 200 mg/1.14 mL injection Inject 200 mg subcutaneously every other week. Active folic acid 1 mg tablet Take 1 tablet by mouth every afternoon. 3 Active cyanocobalamin (VITAMIN B-12) 1,000 mcg tab Take 1,000 mcg by mouth once daily. Active ipratropium-al buterol (DUONEB) 0.5 mg-3 mg(2.5 mg base)/3 mL nebu 4 Active cilostazol (PLETAL) 50 mg tablet Take 1 tablet by mouth two times a day. 3 Active aspirin 81 mg cap Take 81 mg by mouth once daily. 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 4 Active deferasirox (JADENU) 360 mg tab Take 2 tablets by mouth once daily. Alternate 2 tablets/day with 1 tablet/day 180 tablet [address] (PROTONIX) 40 mg tabletIndicati ons:gastroesop hageal reflux disease Take 40 mg by mouth once daily. Active furosemide (LASIX) 20 mg tablet Take 20 mg by mouth once daily. Active benzonatate (TESSALON PERLE ORAL) Take 200 mg by mouth three times a day as needed. Active metoprolol tartrate, short acting, (LOPRESSOR) 25 mg tablet Take 12.5 mg by mouth. 5 Active OXYGEN, HOME THERAPY, Inhale 2 L/min as instructed as directed. 3L on portable Active Active Problems Problem Noted Date Diagnosed Date Weakness of pelvic floor in male 05/30/2024 Urinary incontinence 05/30/2024 Pure hypercholesterolemia 02/15/2024 Assessment & Plan (02/15/2024 8:09 AM EDT): Assessment: On Statin Follows with PCP GERD (gastroesophageal reflux disease) Assessment & Plan (02/15/2024 8:44 AM EDT): Assessment: Stable with TUMS use Elevated ferritin level 09/27/2023 Anemia in other chronic diseases classified else where 07/27/2023 Assessment & Plan (07/27/2023 9:40 AM EDT): Assessment: Since his hemoglobin is less than 10, [...] an erythropoietin stimulating agent if his serum erythropoietin level is less than or equal to 500 Myelodysplastic disease, not elsewhere classifie d 06/28/2023 Assessment & Plan (02/15/2024 8:43 AM EDT): Assessment: December 2023 patient had near syncope, tachycardic and found to have a hemoglobin of 6.7 He was transfused only 1 pack of red blood cells and his hemoglobin improved to 9.8 Aranesp therapy if Hgb < 10 Q [address] Cueva- Hematology Assessment & Plan (07/27/2023 9:38 AM EDT): Assessment: last phlebotomy was in December 2022 following with Hematology start darbepoetin (Aranesp) 200 mcg injection every 14 days ASH (obstructive sleep apnea) 02/24/2022 Assessment & Plan (02/15/2024 8:07 AM EDT): Assessment: Moose Dx Assessment & Plan (07/27/2023 9:58 AM EDT): Assessment: non compliant with CPAP PAD (peripheral artery disease) 11/06/2021 02/15/2024 Overview (02/15/2024): Last Assessment & Plan: Well-controlled, continue current medications Assessment & Plan (02/15/2024 8:07 AM EDT): Assessment: Patient status post right lower extremity angiogram in January 2022 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 S/p left subclavian artery stenting On Pletal and ASA- See tele enc. Okay to stop ASA and pletal 7 days prior to procedure Follows with Dr. Gambino Cardiology Hereditary hemochromatosis 07/03/202107/27 Assessment & Plan (02/15/2024 8:13 AM EDT): Assessment: Stable Last phlebotomy was on January 25, 2023 Last Hgb was 11.7 Dr. Noel Medley at [facility] [place] who recommended an erythropoietin stimulating agent now and switching to Luspatercept if patient does not respond Follows with Dr. Dawson (Hematology) Nicotine dependence 04/22/2021 07/27/2023 Assessment & Plan (07/27/2023 9:57 AM EDT): Assessment: Former Smoker quit in 2020 Chronic obstructive pulmonary disease 07/23/2015 07/27/2023 Assessment & Plan (02/15/2024 7:40 AM EDT): Assessment: Stable with Inhaler use O2 2L @ MORALES as needed Follows with Dr. Davis ([facility] Pulmonology) Assessment & Plan (07/27/2023 10:02 AM EDT): Assessment: stable on Daily inhalers to use morning of surgery Oxygen 2 liters at night prn Follows with Dr. Gauthier Lungs clear today Elevated PSA 05/25/2011 Hypertrophy of prostate with urinary obstruction and other lower urinary tract symptoms (LUTS) 05/25/2011 CAD (coronary artery disease) Assessment & Plan (02/15/2024 8:09 AM EDT): Assessment: Stable Cardiac catheterization in November 25, 2022 with ejection fraction of 55% 30% Mild disease- EKG with normal sinus rhythm no ischemia. On Statin and DAPT Follows with Dr. Gambino Assessment & Plan (07/27/2023 10:03 AM EDT): Assessment: stables/p PTCAx2 following with Dr. Maki Shannon per last ECHO Encounters Date Type Department Care Team Description 04/04/2025 Results Follow-[place]ology[place] [address] [place] [address] Brenda Dawson MD 04/03/2025 Orders Only Hematology/Medical Oncology [address] [place] [id number] Comfort Leavitt APRN.PIPE INSPECTOR Myelodysplastic disease, not elsewhere classified (HCC) (Primary Dx); Elevated ferritin level 04/02/2025 1:15 PM EDT Infusion Center Hematology/Oncolog y [address] [place] [id number] MDS (myelodysplastic syndrome) (HCC) (Primary Dx) 04/02/2025 12:40 PM EDT Visit (SP) Office Hematology/Medical Oncology [address] [place] [address] [id number] Sabra Cueva MD MDS (myelodysplastic syndrome) (HCC) (Primary Dx); 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); Normocytic anemia; 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 (HCC); Encounter for monitoring darbepoetin therapy; Hereditary hemochromatosis; Dependence on supplemental oxygen 04/02/2025 Travel 03/31/2025 Travel 03/19/2025 11:15 AM EDT Infusion Center Hematology/Oncolog y [address] [place] [address] Myelodysplastic disease, not elsewhere classified (HCC) (Primary Dx); MDS (myelodysplastic syndrome) (HCC) 03/18/2025 Orders Only Hematology/Oncolog y [address] [place] [address] Reddy Holguin, [facility] 03/07/2025 Results Follow-[place] [address] [place] [address] Brenda Dawson MD 03/05/2025 11:15 AM EDT Infusion Center Hematology/Oncolog y [address] [place] [address] Myelodysplastic disease, not elsewhere classified (HCC) (Primary Dx) 03/04/2025 Orders Only Hematology/Medical Oncology [facility] [place] [address] Comfort Leavitt APRN.PIPE INSPECTOR 03/01/2025 Orders Only Hematology/Oncolog y [address] [place] [address] Reddy Holguin, [facility] 02/19/2025 11:15 AM EDT Infusion Center Hematology/Oncolog y [address] [place] [address] Myelodysplastic disease, not elsewhere classified (HCC) (Primary Dx) 02/17/2025 Travel 02/07/2025 Patient Msg Hematology [address] [place] [address] Brenda Dawson MD iron 02/05/2025 11:15 AM EDT Infusion Center Hematology/Oncolog y [address] [place] [address] Myelodysplastic disease, not elsewhere classified (HCC) (Primary Dx) 02/04/2025 Orders Only Hematology/Oncolog y [address] [place] [address] Reddy Holguin, [facility] 01/22/2025 11:15 AM EDT Infusion Center Hematology/Oncolog y [facility] [place] [address] Myelodysplastic disease, not elsewhere classified (HCC) (Primary Dx) 01/21/2025 Orders Only Hematology/Oncolog y [facility] [place] [address] Reddy Holguin, [facility] 01/14/2025 Telephone Hematology/Medical Oncology [place] [address] Sabra Cueva MD Patient Update; Scraper Tender - Other (DISCHARGE CALL BACK 01/15 from [facility]) 01/11/2025 Orders Only [facility]ematology[facility] [address] [facility] [place] [address] Comfort Leavitt APRN.PIPE INSPECTOR 01/10/2025 Results Follow-Up [place]ematology/[place] [address] [place] [address] Brenda Dawson MD 01/08/2025 11:15 AM EDT Infusion Center Hematology/Oncolog y [facility] [place] [address] MDS (myelodysplastic syndrome) (HCC) (Primary Dx) from Last 3 Months Family History Medical History Relation Comments polycythemia vera Brother 1 Cancer Brother 2 Prostate Cancer Brother 2 Thyroid Cancer Daughter Prostate Cancer Father Relation Status Comments Brother 1 Brother 2 Alive Daughter Alive Father Social History Tobacco Use Types Packs/Day Years Used Date Smoking Tobacco: Former Cigarettes Q uit: 2020 Smokeless Tobacco: Never Tobacco Cessation:Counseling Given: Not Answered Alcohol Use Standard Drinks/Week Comments Not Currently 0 (1 standard drink = 0.6 oz pur e alcohol) PHQ-2 Answer Date Recorded PHQ-2 score 2 03/31/2025 Area Deprivation Index Answer Date Rui rded National Score (1-100), lower number is lower ri 87 04/12/2023 State Score (1-10), lower number is lower risk 8 04/12/2023 Data from: https://www.neighborhoodatlas.medicine.[facility].edu/. 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 on file Not on file Not o n file Last Filed Vital Signs Vital Sign Reading [...] 14.2 oz) 025 12:18 PM EDT Height 180.3 cm (5' 11 ) 01/01/2025 9:39 AM EST Body Mass Index 25.23 01/01/2025 9:39 AM EST Plan of Treatment Upcoming Encounters Date Type Department Care Team (Late st Contact Info) Description 04/16/2025 10:45 AM EDT Results Only [facility] Laboratory [facility] [place] [address] Myelodysplastic disease, not elsewhere classified (HCC) [C94.6]; Elevated ferritin level [R79.89] 04/16/2025 11:00 AM EDT Infusion Center Hematology/Oncolog y [facility] [place] [address] [place]; Aranesp Inj 04/30/2025 10:45 AM EDT Results Only [facility] Laboratory [facility] [place] [address] Myelodysplastic disease, not elsewhere classified (HCC) [C94.6]; Elevated ferritin level [R79.89] 04/30/2025 11:00 AM EDT Infusion Center Hematology[place] [address] [place]; Aranesp Inj 05/14/2025 10:45 AM EDT Results Only [facility] [place] [address] Myelodysplastic disease, not elsewhere classified (HCC) [C94.6]; Elevated ferritin level [R79.89] 05/14/2025 11:00 AM EDT Infusion Center Hematology[place] [address] [place]; Aranesp Inj 05/28/2025 10:45 AM EDT Results Only [facility] [place] [address] Myelodysplastic disease, not elsewhere classified (HCC) [C94.6]; Elevated ferritin level [R79.89] 05/28/2025 11:00 AM EDT Infusion Center Hematology[place] [address] [place]; Aranesp Inj 06/05/2025 12:45 PM EDT Office Visit [facility] Ophthalmology [address] [place] [address] Sheryl Mckee, OD [address] [place] [address] LVM R/S from 06/07/2025 06/11/2025 10:45 AM EDT Results Only [facility] [place] [address] Myelodysplastic disease, not elsewhere classified (HCC) [C94.6]; Elevated ferritin level [R79.89] 06/11/2025 11:00 AM EDT Infusion Center Hematology[place] [address] [place]; Aranesp Inj 06/25/2025 10:45 AM EDT Results Only [facility] [place] [address] Myelodysplastic disease, not elsewhere classified (HCC) [C94.6]; Elevated ferritin level [R79.89] 06/25/2025 11:00 AM EDT Infusion Center Hematology/Oncolog y [address] [place] [address] [place]; Aranesp Inj 07/09/2025 10:20 AM EDT Visit (SP) Office Hematology [address] [place] [address] [place] [address] [place] [address] 6 month follow up 10/02/2025 11:30 AM EST Visit (SP) Office Hematology/Medical Oncology [address] [place] [address] Comfort Leavitt APRN.PIPE INSPECTOR [address] [place] [address] 6 month OV f/u with labs prior Health Maintenance Due Date Last Done Comments Annual PCP Team Chronic Dise ase Visit 1966 Anxiety Screening 1966 Depression Screening 1966 DTaP,Tdap,Td Vaccine (1 - Tdap) 08/30/2007 7, 05/14/1997 Medicare Annual Wellness Visit 09/30/2013 Shingrix Vaccine (2 of 3) 01/18/2014 11/23/2013 RSV Vaccine (1 - 1-dose 75+ series) 2023 Advance Directive Discussion 10/31/2024 Covid-19 Vaccine (7 - 2023-2 5 season) 2025 08/06/2024, 07/28/2023, 07/29/2022, Additional history exists LDL Cholesterol 01/12/2026 01/12/2025, 02/2 02/2025, 12/23/2023, Additional history exists Diabetes Screening 04/02/2028 04/02/2025, 0 03/29/2025, 03/05/2025, Additional history exists Pneumococcal Vaccine: 50+ Completed 01/17/2018, 10/2015 Cologuard (FIT-DNA) Discontinued 08/20/2019 Colorectal Cancer Screening Discontinued Hepatitis C Screening Completed 01/31/2024 , 01/31/2024, 07/29/2021, Additional history exists Influenza Vaccine Completed 08/17/2024, , 08/16/2022, Additional history exists CT Colonography Discontinued Colonoscopy Discontinued Fecal Occult Blood Discontinued Sigmoidoscopy Discontinued Medical Devices Implanted Type Area Clinical Care Coordinator Device Identifier Shelf Expiration Date Model / Serial / Lot [employer] Panoptix Iol [id number] +18.0 D Implanted:Qt y: 1 on 08/01/2023 by Barbara Davila V, MD at [facility] Implant JAMIE [employer] 04/04/2026 CCWTT0.1 80 / [id number] / Description:-0.24 [employer] Panoptix Uv Iol +18.0 D Implanted:Qt y: 1 on 08/15/2023 by Barbara Davila V, MD at [facility] Implant JAMIE [employer] 05/11/2026 CCWTT0.1 80 / [id number] / Description:-0.41 Stent Stent Left: Artery - Subclavian HARRY Description:Omnilink Elite 2500 g/cm Safe up to 3T Stent Stent Left: Artery - Iliac HARRY Description:Absolute pro vas cular stent Safe to 3T 2500 g/cm Stent Inlay Little Silver 7fr Taper [place] Polymer Phreecoat 26cm Ureteral - [id number] Implanted:Qt y: 1 on 03/07/2024 at [facility] Urologic Stents Left: Ureter YA JACLYN 05/05/2027 [id number] / / [id number] Procedures Procedure Name Priority Date/Time Associated Diagnosis Comments PROTEIN CREATININE RATIO Routine 04/02/2025 12:16 PM EDT Iron overload IRON + TIBC Routine 04/02/2025 12:04 PM EDT Iron overload FERRITIN BLD Routine 04/02/2025 12:04 PM EDT Iron overload COMPREHENSIVE METABOLIC PANEL Routine 04/02/2025 12:04 PM EDT Iron overload CBC + DIFF Routine 04/02/2025 12:04 PM EDT Normocytic anemia FERRITIN BLD Routine 03/19/2025 10:29 AM EDT Normocytic anemia Elevated ferritin level IRON + TIBC Routine 03/19/2025 10:29 AM EDT Normocytic anemia Elevated ferritin level CBC + DIFF Routine 03/19/2025 10:29 AM EDT Iron overload PROTEIN CREATININE RATIO Routine 03/05/2025 10:50 AM EDT Iron overload IRON + TIBC Routine 03/05/2025 10:38 AM EDT Iron overload FERRITIN BLD Routine 03/05/2025 10:38 AM EDT Iron overload COMPREHENSIVE METABOLIC PANEL Routine 03/05/2025 10:38 AM EDT Iron overload CBC + DIFF Routine 03/05/2025 10:38 AM EDT Normocytic anemia CBC + DIFF Routine 02/19/2025 10:36 AM EDT Normocytic anemia PROTEIN CREATININE RATIO Routine 02/05/2025 10:53 AM EDT Iron overload IRON + TIBC Routine 02/05/2025 10:37 AM EDT Iron overload FERRITIN BLD Routine 02/05/2025 10:37 AM EDT Iron overload COMPREHENSIVE METABOLIC PANEL Routine 02/05/2025 10:37 AM EDT Iron overload CBC + DIFF Routine 02/05/2025 10:37 AM EDT Normocytic anemia MANUAL SCAN/DIFF Routine 01/22/2025 10:3 5 AM EDT Normocytic anemia CBC + DIFF Routine 01/22/2025 10:35 AM EDT Normocytic anemia PROTEIN CREATININE RATIO Routine 01/08/2025 10:42 AM EDT Iron overload IRON + TIBC Routine 01/08/2025 10:34 AM EDT Iron overload FERRITIN BLD Routine 01/08/2025 10:34 AM EDT Iron overload COMPREHENSIVE METABOLIC PANEL Routine 01/08/2025 10:34 AM EDT Iron overload CBC + DIFF Routine 01/08/2025 10:34 AM EDT Normocytic anemia HEPATITIS C ANTIBODY IA WITH CONFIRMATION Routine 01/31/2024 12:05 PM EDT Hereditary hemochromatosis (HCC) from Last 3 Months or Most Recently Relevant to Health Maintenance Results * PROTEIN / CREATININE RATIO (04/02/2025 12:16 PM EDT) Only the most recent of4 resultswithin the time period is included. Protein, Urine Random 4 0 - 20 mg/dL 04/02/2025 9:29 PM EDT [facility] Creatinine, Ur Random (UCRR) 30.3 20.0 - 300.0 mg/dL 04/02/2025 9:29 PM EDT [facility] Protein/Creat Ratio 0.13 <0.15 mg/mg 04/02/2025 9:29 PM EDT [facility] Comment: Adult Proteinuria Categories: <0.15 mg/mg is considered normal to mildly increased 0.15 - 0.50 mg/mg is considered moderately increased >0.50 mg/mg is considered severely increased KDIGO. (2013). KDIGO 2012 Clinical Practice Guideline for the Evaluation and Management of Chronic Kidney Disease. Official Journal of the International Society of Nephrology, 3(1), 1-150. Urine URINE SPECIMEN / Unknown Non Blood / Unknown 04/02/2025 12:16 PM EDT 04/02/2025 12:21 PM EDT Brenda Dawson MD LABORATORY Final Result [facility] [address] [facility] [address] [place] [address], [place] * IRON AND TIBC (04/02/2025 12:04 PM EDT) Only the most recent of5 resultswithin the time period is included. Iron 123 41 - 186 ug/dL 04/02/2025 12:35 PM EDT [facility] TIBC 308 232 - 386 ug/dL 04/02/2025 12:35 PM EDT [facility] Transferrin Saturation 39.9 15.0 - 57.0 % 04/02/2025 12:35 PM EDT [facility] Blood BLOOD SPECIMEN / Unknown Venipuncture / Unknown 04/02/2025 12:04 PM EDT 04/02/2025 12:04 PM EDT Brenda Dawson MD LABORATORY Final Result Performing Organization Address [facility] Co de Phone Number [facility] [address] [place] [id number], [place] * FERRITIN (04/02/2025 12:04 PM EDT) Only the most recent of5 resultswithin the time period is included. Pathologist [facility] Ferritin 536.0 30.3 - 565.7 ng/mL 04/02/2025 12:48 PM EDT [facility] Blood BLOOD SPECIMEN / Unknown Venipuncture / Unknown 04/02/2025 12:04 PM EDT 04/02/2025 12:04 PM EDT Brenda Dawson MD LABORATORY Final Result Performing Organization Address City/[facility]/ZIP Co de Phone Number [facility] [address] [place] [address], [place] * (ABNORMAL) COMPREHENSIVE METABOLIC PANEL (04/02/2025 12:04 PM EDT) Only the most recent of4 resultswithin the time period is included. Protein, Total 6.9 6.3 - 8.0 g/dL 04/02/2025 12:35 PM T [facility] Albumin 4.3 3.9 - 4.9 g/dL 04/02/2025 12:35 PM [facility] Calcium, Total 9.3 8.5 - 10.2 mg/dL 04/02/2025 12:35 PM [facility] Bilirubin, Total 1.0 0.2 - 1.3 mg/dL 04/02/2025 12:35 PM [facility] Alkaline Phosphatase 81 38 - 113 U/L 04/02/2025 12:35 PM [facility] AST 9(L) 14 - 40 U/L 04/02/2025 12:35 PM [facility] ALT 4(L) 10 - 54 U/L 04/02/2025 12:35 PM [facility] Glucose 93 74 - 99 mg/dL 04/02/2025 12:35 PM [facility] Comment: The [place] Diabetes Association (ADA) provides guidance for cutoff values for fasting glucose and random glucose. The ADA defines fasting as no caloric intake for at least 8 hours. Fasting plasma glucose results between 100 to 125 mg/dL indicate increased risk for diabetes (prediabetes). Fasting plasma glucose results greater than or equal to 126 mg/dL meet the criteria for diagnosis of diabetes. In the absence of unequivocal hyperglycemia, results should be confirmed by repeat testing. In a patient with classic symptoms of hyperglycemia or hyperglycemic crisis, random plasma glucose results greater than or equal to 200 mg/dL meet the criteria for diagnosis of diabetes. Reference: Standards of Medical Care in Diabetes 2016, [place] Diabetes Association. Diabetes Care. 2016.39(Suppl 1). BUN 14 9 - 24 mg/dL 04/02/2025 12:35 PM [facility] Creatinine 1.24(H) 0.73 - 1.22 mg/dL 04/02/2025 12:35 PM [facility] Sodium 137 136 - 144 mmol/L 04/02/2025 12:35 PM [facility] Potassium 4.3 3.7 - 5.1 mmol/L 04/02/2025 12:35 PM [facility] Chloride 104 98 - 107 mmol/L 04/02/2025 12:35 PM EDT [facility] CO2 29 22 - 30 mmol/L 04/02/2025 12:35 PM EDT [facility] Anion Gap 4(L) 8 - 15 mmol/L 04/02/2025 12:35 PM EDT [facility] Estimated Glomerular Filtration Rate 60 >=60 mL/min/1. 73m 04/02/2025 12:35 PM EDT [facility] Comment:Estimated Glomerular Filtration Rate (eGFR) is calculated using the 2020 CKD-EPI creatinine equation. This equation utilizes serum creatinine, sex, and age as parameters. The creatinine assay has traceable calibration to isotope dilution- mass spectrometry. Refer to KDIGO guidelines for clinical interpretation. In patients with unstable renal function, e.g. those with acute kidney injury, the eGFR may not accurately reflect actual GFR. Blood BLOOD SPECIMEN / Unknown Venipuncture / Unknown 04/02/2025 12:04 PM EDT 04/02/2025 12:04 PM EDT us Brenda Dawson MD LABORATORY Final Result [facility] [address] [place] [address], * (ABNORMAL) COMPLETE BLOOD COUNT AND DIFFERENTIAL (04/02/2025 12:04 PM EDT) Only the most recent of7 resultswithin the time period is included. WBC 5.40 3.70 - 11.00 k/uL 04/02/2025 12:07 PM EDT [facility] RBC 2.88(L) 4.20 - 6.00 m/uL 04/02/2025 12:07 PM EDT [facility] Hemoglobin 9.2(L) 13.0 - 17.0 g/dL 04/02/2025 12:07 PM EDT [facility] Hematocrit 28.5(L) 39.0 - 51.0 % 04/02/2025 12:07 PM EDT [facility] MCV 99.0 80.0 - 100.0 fL 04/02/2025 12:07 PM EDT [facility] MCH 31.9 26.0 - 34.0 pg 04/02/2025 12:07 PM EDT [facility] MCHC 32.3 30.5 - 36.0 g/dL 04/02/2025 12:07 PM EDT [facility] RDW-CV 24.6(H) 11.5 - 15.0 % 04/02/2025 12:07 PM EDT [facility] Platelet Count 477(H) 150 - 400 k/uL 04/02/2025 12:07 PM EDT [facility] MPV 8.5(L) 9.0 - 12.7 fL 04/02/2025 12:07 PM EDT [facility] Neutrophils % 48.0 % 04/02/2025 12:07 PM EDT [facility] Abs Neut 2.59 1.45 - 7.50 k/uL 04/02/2025 12:07 PM EDT [facility] Lymphocytes % 38.3 % 04/02/2025 12:07 PM EDT [facility] Abs Lymph 2.07 1.00 - 4.00 k/uL 04/02/2025 12:07 PM EDT [facility] Monocytes % 9.6 % 04/02/2025 12:07 PM EDT [facility] Abs [facility] 0.52 <0.87 k/uL 04/02/2025 12:07 PM EDT [facility] Eosinophils % 3.1 % 04/02/2025 12:07 PM EDT [facility] Abs Eosin 0.17 <0.46 k/uL 04/02/2025 12:07 PM EDT [facility] Basophils % 0.4 % 04/02/2025 12:07 PM EDT [facility] Abs Baso <0.03 <0.11 k/uL 04/02/2025 12:07 PM EDT [facility] Immature Granulocytes % 0.6 % 04/02/2025 12:07 PM EDT [facility] Abs Immature Gran 0.03 <0.10 k/uL 025 12:07 PM EDT [facility] NRBC 0.0 /100 WBC 04/02/2025 12:07 PM EDT [facility] Absolute nRBC <0.01 <0.01 k/uL 04/02/2025 12:07 PM EDT [facility] Diff Type Auto 04/02/2025 12:07 PM EDT [facility] Blood BLOOD SPECIMEN / Unknown Venipuncture / Unknown 04/02/2025 12:04 PM EDT 04/02/2025 12:04 PM EDT us Sabra Cueva MD LABORATORY Final Result [facility] [address] [place] [address], [place] * (ABNORMAL) MANUAL DIFFERENTIAL (01/22/2025 10:35 AM EDT) Neutrophils % (Manual Diff) 52.0 % 01/22/2025 6:32 PM EDT [facility] ANC (Seg + Band) 7.29 1.45 - 7.50 k/uL 01/22/2025 6:32 PM EDT [facility] Lymphocytes % (Manual Diff) 33.0 % 01/22/2025 6:32 PM EDT [facility] Abs Lymphs (Manual Diff) 4.62(H) 1.00 - 4.00 k/uL 01/22/2025 6:32 PM EDT [facility] Monocytes % (Manual Diff) 11.0 % 01/22/2025 6:32 PM EDT [facility] Abs [facility] (Manual Diff) 1.54(H) <0.87 k/uL 01/22/2025 6:32 PM EDT [facility] Eosin % (Manual Diff) 2.0 % 01/22/2025 6:32 PM EDT [facility] Abs Eos (Manual Diff) 0.28 <0.46 k/uL 01/22/2025 6:32 PM EDT [facility] Basophils % (Manual Diff) 0.0 % 01/22/2025 6:32 PM EDT [facility] Abs Baso (Manual Diff) 0.00 <0.11 k/uL 01/22/2025 6:32 PM EDT [facility] Myelocyte % 2.0 % 01/22/2025 6:32 PM EDT [facility] Cells Counted 100 Counted 01/22/2025 6:32 PM EDT [facility] Left Shift Present 01/22/2025 6:32 PM EDT [facility] Platelet Estimate Increased 01/22/2025 6:32 PM EDT [facility] Platelet Clumping Present 01/22/2025 6:32 PM EDT [facility] Red Cell Morph Reviewed: see results of individual morphologies 01/22/2025 6:32 PM EDT [facility] Polychromasia Slight 01/22/2025 6:32 PM EDT [facility] Anisocytosis Present 01/22/2025 6:32 PM EDT [facility] Dimorphic Population Present 01/22/2025 6:32 PM EDT [facility] Ovalocytes Few 01/22/2025 6:32 PM EDT [facility] RBC Fragments Few(A) None Seen 01/22/2025 6:32 PM EDT [facility] Tear Drop Cells Few 6:32 PM EDT [facility] Blood BLOOD SPECIMEN / Unknown Venipuncture / Unknown 01/22/2025 10:35 AM EDT 01/22/2025 10:35 AM EDT us Sabra Cueva MD LABORATORY Final Result [facility] [address] [place] [address], * HEPATITIS C ANTIBODY IA WITH CONFIRMATION (01/31/2024 12:05 PM EDT) Hep C Antibody IA Negative Negative 01/31/2024 10:02 PM EDT [facility] Comment:The result suggests no evidence of active infection with Hepatitis C virus. Should recent infection be suspected, repeat testing may be considered 4-6 weeks after this draw. Blood BLOOD SPECIMEN / Unknown Venipuncture / Unknown 01/31/2024 12:05 PM EDT 01/31/2024 12:05 PM EDT us Brenda Dawson MD LABORATORY Final Result [facility] [address] [facility] [address] [place] [address], [place] from Last 3 Months or Most Recently Relevant to Health Maintenance Insurance MEDICARE [facility] [employer] FOR [employer] Care Teams Management Professionals Relationship Specialty Start Date End Date Cayden Martines MD [address] [place] [address] PCP - General Family Medicine 05/24/23
--- OUTSIDE RECORDS SUMMARY | 2025-04-10 09:09 | XMS_ITS | Encounter Summary ---
Author Organization [facility] Address [facility] [place] [address] Care Team Providers Care Nailer Operator Name Role Phone Cayden Martines MD Primary Care Provider [phone] Source Comments In the event this information is protected by the Federal Confidentiality of Alcohol and Drug AbusePatient Records regulations: The Federal rules restrict any use of the information to criminally investigate or prosecute any alcohol or drug abuse patient.[facility] Encounter Details Date Type Department Care Team (Late st Contact Info) Description 04/03/2025 Orders Only Hematology/Medical Oncology [address] [place], [place] [id number] Comfort Leavitt APRN.MERIT SYSTEM DIRECTOR [address] [place], [place] [id number] Myelodysplastic disease, not elsewhere classified (HCC) (Primary Dx); Elevated ferritin level Social History Tobacco Use Types Packs/Day Years [...] is lower risk 8 04/12/2023 Data from: https://www.neighborhoodatlas.medicine.[facility]/. 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 Not on file Not o n file documented as of this encounter Plan of Treatment Upcoming Encounters Date Type Department Care Team (Late st Contact Info) Description 04/16/2025 10:45 AM EDT Results Only [facility] [place] [address] Myelodysplastic disease, not elsewhere classified (HCC) [C94.6]; Elevated ferritin level [R79.89] 04/16/2025 11:00 AM EDT Infusion Center Hematology/Oncolog y [facility] [place] [address] [place]; Aranesp Inj 04/30/2025 10:45 AM EDT Results Only [facility] [place] [address] Myelodysplastic disease, not elsewhere classified (HCC) [C94.6]; Elevated ferritin level [R79.89] 04/30/2025 11:00 AM EDT Infusion Center Hematology/Oncolog y [facility] [place] [address] [place]; Aranesp Inj 05/14/2025 10:45 AM EDT Results Only [facility] [address] [address] Myelodysplastic disease, not elsewhere classified (HCC) [C94.6]; Elevated ferritin level [R79.89] 05/14/2025 11:00 AM EDT Infusion Center Hematology[place] [address] [place]; Aranesp Inj 05/28/2025 10:45 AM EDT Results Only [facility] [place] [address] Myelodysplastic disease, not elsewhere classified (HCC) [C94.6]; Elevated ferritin level [R79.89] 05/28/2025 11:00 AM EDT Infusion Center Hematology[place] [address] [place]; Aranesp Inj 06/05/2025 12:45 PM EDT Office Visit OPHT Ophthalmology [address] [facility] [place] [address] Sheryl Mckee, OD [address] [place] [address] LVM R/S from 06/07/2025 06/11/2025 10:45 AM EDT Results Only [facility] [place] [address] Myelodysplastic disease, not elsewhere classified (HCC) [C94.6]; Elevated ferritin level [R79.89] 06/11/2025 11:00 AM EDT Infusion Center Hematology[place] [address] [place]; Aranesp Inj 06/25/2025 10:45 AM EDT Results Only [facility] [place] [address] Myelodysplastic disease, not elsewhere classified (HCC) [C94.6]; Elevated ferritin level [R79.89] 06/25/2025 11:00 AM EDT Infusion Center Hematology/Oncolog y [address] [place] [address] [place]; Aranesp Inj 07/09/2025 10:20 AM EDT Visit (SP) Office Hematology [address] [place] [address] [place] [address] [place] [address] 6 month follow up 10/02/2025 11:30 AM EST Visit (SP) Office Hematology/Medical Oncology [address] [place] [address] Comfort Leavitt APRN.MERIT SYSTEM DIRECTOR [address] [place] [address] 6 month OV f/u with labs prior Scheduled Orders Name Type Priority Associated Diagnoses Orde r Schedule COMPLETE BLOOD COUNT AND DIFFERENTIAL Lab Routine Myelodysplastic disease, not elsewhere classified (HCC) Elevated ferritin level Every other week for 5 Occurrences starting 04/03/2025 until 04/03/2026 documented as of this encounter Visit Diagnoses Diagnosis Myelodysplastic disease, not elsewhere classified (HCC)- Primary Elevated ferritin level Other abnormal blood chemistry documented in this encounter Care Teams Nailer Operator Relationship Specialty Start Date End Date Cayden Martines MD [address] [place] [address] PCP - General Family Medicine 05/24/23 documented as of this encounter
--- OUTSIDE RECORDS SUMMARY | 2025-04-10 09:09 | XMS_ITS | Encounter Summary ---
Author Organization [facility] Address [facility] [place] [address] Care Team Providers Care Business Office Technology Instructor Name Role Phone Cayden Martines MD Primary Care Provider [phone] Source Comments In the event this information is protected by the Federal Confidentiality of Alcohol and Drug AbusePatient Records regulations: The Federal rules restrict any use of the information to criminally investigate or prosecute any alcohol or drug abuse patient.[facility] Encounter Details Date Type Department Care Team (Late st Contact Info) Description 02/01/2024 Patient Msg Hematology [address] [facility] [place] [address] [place] [address] [address] [place], [place] [phone] labs look good Social History Tobacco Use Types Packs/Day Years [...] is lower risk 8 04/12/2023 Data from: https://www.neighborhoodatlas.medicine.[facility]/. 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 Not on file Not o n file documented as of this encounter Plan of Treatment Upcoming Encounters Date Type Department Care Team (Late st Contact Info) Description 04/16/2025 10:45 AM EDT Results Only [facility] [place] [address] Myelodysplastic disease, not elsewhere classified (HCC) [C94.6]; Elevated ferritin level [R79.89] 04/16/2025 11:00 AM EDT Infusion Center Hematology/Oncolog y [address] [place] [address] [place]; Aranesp Inj 04/30/2025 10:45 AM EDT Results Only [facility] [place] [address] Myelodysplastic disease, not elsewhere classified (HCC) [C94.6]; Elevated ferritin level [R79.89] 04/30/2025 11:00 AM EDT Infusion Center Hematology/Oncolog y [address] [place] [address] [place]; Aranesp Inj 05/14/2025 10:45 AM EDT Results Only [facility] [address] [place] [address] Myelodysplastic disease, not elsewhere classified (HCC) [C94.6]; Elevated ferritin level [R79.89] 05/14/2025 11:00 AM EDT Infusion Center Hematology/Oncolog y [address] [place] [address] [place]; Aranesp Inj 05/28/2025 10:45 AM EDT Results Only [facility] [place] [address] Myelodysplastic disease, not elsewhere classified (HCC) [C94.6]; Elevated ferritin level [R79.89] 05/28/2025 11:00 AM EDT Infusion Center Hematology[place] [address] [place]; Aranesp Inj 06/05/2025 12:45 PM EDT Office Visit [facility] Op[facility] [address] [facility] [place] [address] Sheryl Mckee, OD [address] [place] [address] LVM R/S from 06/07/2025 06/11/2025 10:45 AM EDT Results Only [facility] [place] [address] Myelodysplastic disease, not elsewhere classified (HCC) [C94.6]; Elevated ferritin level [R79.89] 06/11/2025 11:00 AM EDT Infusion Center Hematology[place] [address] [place]; Aranesp Inj 06/25/2025 10:45 AM EDT Results Only [facility] [place] [address] Myelodysplastic disease, not elsewhere classified (HCC) [C94.6]; Elevated ferritin level [R79.89] 06/25/2025 11:00 AM EDT Infusion Center Hematology[place] [address] [place]; Aranesp Inj 07/09/2025 10:20 AM EDT Visit (SP) Office Hematology [address] [place] [address] [place] [address] [place] [address] 6 month follow up 10/02/2025 11:30 AM EST Visit (SP) Office Hematology/Medical Oncology [address] [place], [place] [phone] Comfort Leavitt APRN.DOOR OPERATOR [address] [place] [address] 6 month OV f/u with labs prior documented as of this encounter Visit Diagnoses Not on filedocumented in this encounter Care Teams Business Office Technology Instructor Relationship Specialty Start Date End Date Cayden Martines MD [address] [place] [address] PCP - General Family Medicine 05/24/23 documented as of this encounter
--- OUTSIDE RECORDS SUMMARY | 2025-04-10 09:10 | XMS_ITS | Encounter Summary ---
Author Organization [facility] Address [facility] [address] Care Team Providers Care School Social Worker Name Role Phone Cayden Martines MD Primary Care Provider Source Comments In the event this information is protected by the Federal Confidentiality of Alcohol and Drug AbusePatient Records regulations: The Federal rules restrict any use of the information to criminally investigate or prosecute any alcohol or drug abuse patient.[facility] Reason for Visit * Reason Comments Radiology CT Encounter Details Date Type Department Care Team (Late st Contact Info) Description 06/12/2023 Radiology Radiology [address] [place], [place] [phone] Michelle Telles RT(R) Radiology CT Social History Tobacco Use Types Packs/Day Years Used Date Smoking Tobacco: Former Cigarettes Q uit: 2020 Smokeless Tobacco: Never Alcohol Use Standard Drinks/Week Comments Not Currently 0 (1 standard drink = 0.6 oz pur e alcohol) PHQ-2 Answer Date Recorded PHQ-2 score 4 05/22/2023 Area Deprivation Index Answer Date Rui rded National Score (1-100), lower number is lower ri 87 04/12/2023 State Score (1-10), lower number is lower risk 8 04/12/2023 Data from: https://www.neighborhoodatlas.medicine.[facility] [place].edu/. 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 FALL SCREENING: Has the patient had 2 falls in the last year or 1 fall with injury or currently using an Ambulatory Assistive Device (Walker, Cane, Wheelchair, Crutches, etc.)? No PATIENT GENDER DATA: Male PATIENT RELEVANT IMPLANT DATA REVIEWED: Not Applicable RADIOLOGY DEPARTMENT: CT; Exam(s) Completed: Spine PERIPHERAL IV DATA: Not applicable SIGNED BY: RT Indio(R) June 12, 2023 2:10 PM documented in this encounter Plan of Treatment Upcoming Encounters Date Type Department Care Team (Late st Contact Info) Description 04/16/2025 10:45 AM EDT Results Only [place] COUNTS INCLUDE [facility]S AT [facility] Laboratory [address] [place] [address] Myelodysplastic disease, not elsewhere classified (HCC) [C94.6]; Elevated ferritin level [R79.89] 04/16/2025 11:00 AM EDT Infusion Center Hematology/Oncolog [facility] [address] [facility] [place] [place] [address] [place]; Aranesp Inj 04/30/2025 10:45 AM EDT Results Only [facility] [address] [place] [address] Myelodysplastic disease, not elsewhere classified (HCC) [C94.6]; Elevated ferritin level [R79.89] 04/30/2025 11:00 AM EDT Infusion Center Hematology/Oncolog y [address] [place] [address] [place]; Aranesp Inj 05/14/2025 10:45 AM EDT Results Only [facility] [address] [place] [address] Myelodysplastic disease, not elsewhere classified (HCC) [C94.6]; Elevated ferritin level [R79.89] 05/14/2025 11:00 AM EDT Infusion Center [place]ematology[place] [address] [place]; Aranesp Inj 05/28/2025 10:45 AM EDT Results Only [facility] [place] [address] Myelodysplastic disease, not elsewhere classified (HCC) [C94.6]; Elevated ferritin level [R79.89] 05/28/2025 11:00 AM EDT Infusion Center Hematology[place] [address] [place]; Aranesp Inj 06/05/2025 12:45 PM EDT Office Visit OPHT Ophthalmology [address] [place] [address] Sheryl Mckee, OD [address] [place] [address] LVM R/S from 06/07/2025 06/11/2025 10:45 AM EDT Results Only [facility] [place] [address] Myelodysplastic disease, not elsewhere classified (HCC) [C94.6]; Elevated ferritin level [R79.89] 06/11/2025 11:00 AM EDT Infusion Center Hematology/Oncolog y [address] [place] [address] [place]; Aranesp Inj 06/25/2025 10:45 AM EDT Results Only [facility] [place] [address] Myelodysplastic disease, not elsewhere classified (HCC) [C94.6]; Elevated ferritin level [R79.89] 06/25/2025 11:00 AM EDT Infusion Center Hematology/Oncolog y [address] [place] [address] [place]; Aranesp Inj 07/09/2025 10:20 AM EDT Visit (SP) Office Hematology [address] [place] [address] [place] [address] [place] [address] 6 month follow up 10/02/2025 11:30 AM EST Visit (SP) Office Hematology/[place] [address] Comfort Leavitt APRN.FELT HANGER [address] [place] [address] 6 month OV f/u with labs prior documented as of this encounter Visit Diagnoses Not on filedocumented in this encounter Care Teams School Social Worker Relationship Specialty Start Date End Date Cayden Martines MD [address] [place] [address] PCP - General Family Medicine 05/24/23 documented as of this encounter
--- OUTSIDE RECORDS SUMMARY | 2025-04-10 09:10 | XMS_ITS | Encounter Summary ---
Author Organization [facility] Address [address] [place] [address] Care Team Providers Care Counterintelligence Analyst Name Role Phone Cayden Martines MD Primary Care Provider [phone] Encounter Details Date Type Department Care Team (Late st Contact Info) Description 12/01/2020 Legacy Encounter [facility] Dept Provider, [facility] Conversion Social History Tobacco Use Types Packs/Day Years Used Date Smoking Tobacco: Never Assessed Sex and Gender Information Value Date Recorded Sex Assigned at Male 08/19/2022 6:44 PM EDT Legal Sex Male 4:15 PM EDT Gender Identity Male 08/19/2022 6:44 PM EDT Sexual Orientation Straight 08/19/2022 6: 44 PM EDT documented as of this encounter Miscellaneous Notes * Telephone Encounter - [facility] Conversion Provider - 12/01/2020 3:44 PM EST Rx requested: Requested Prescriptions Pending Prescriptions Disp Refills ??? finasteride (PROSCAR) 5 MG tablet 30 tablet 0 Sig: TAKE 1 TABLET DAILY Last Office Visit: 12/04/2019 Last filled: 11/15/2019 Next Visit Date: Future Appointments Date Time Provider Department Center 12/05/2020 8:45 AM Cayden Martines MD [facility] 12/17/2020 11:15 AM Bart Baldwin MD [facility] EDT documented in this encounter Plan of Treatment Not on file documented as of this encounter Visit Diagnoses Not on filedocumented in this encounter Care Teams Counterintelligence Analyst Relationship Specialty Start Date End Date Cayden Martines MD [address] [place] [phone] PCP - General 11/08/18 documented as of this encounter
--- OUTSIDE RECORDS SUMMARY | 2025-04-10 09:10 | XMS_ITS | Encounter Summary ---
Author Organization [facility] Address [facility] [place] [address] Care Team Providers Care Ext Js Developer Name Role Phone Cayden Martines MD Primary Care Provider [phone] Source Comments In the event this information is protected by the Federal Confidentiality of Alcohol and Drug AbusePatient Records regulations: The Federal rules restrict any use of the information to criminally investigate or prosecute any alcohol or drug abuse patient.[facility] Encounter Details Date Type Department Care Team (Latest Contact Info) Description 04/02/2025 Travel Social History Tobacco Use Types Packs/Day Years [...] is lower risk 8 04/12/2023 Data from: https://www.neighborhoodatlas.medicine.[facility].edu/. 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 file Not o n file documented as of this encounter Plan of Treatment Upcoming Encounters Date Type Department Care Team (Late st Contact Info) Description 04/16/2025 10:45 AM EDT Results Only [facility] Laboratory [facility] [place] [address] Myelodysplastic disease, not elsewhere classified (HCC) [C94.6]; Elevated ferritin level [R79.89] 04/16/2025 11:00 AM EDT Infusion Center Hematology/Oncolog y [facility] [place] [address] [place]; Aranesp Inj 04/30/2025 10:45 AM EDT Results Only [facility] Laboratory [facility] [place] [address] Myelodysplastic disease, not elsewhere classified (HCC) [C94.6]; Elevated ferritin level [R79.89] 04/30/2025 11:00 AM EDT Infusion Center Hematology/Oncolog y [facility] [place] [address] [place]; Aranesp Inj 05/14/2025 10:45 AM EDT Results Only [facility] Laboratory [address] [place] [address] Myelodysplastic disease, not elsewhere classified (HCC) [C94.6]; Elevated ferritin level [R79.89] 05/14/2025 11:00 AM EDT Infusion Center Hematology/Oncolog y [facility] [place] [address] [place]; Aranesp Inj 05/28/2025 10:45 AM EDT Results Only [facility] Laboratory [address] [place] [address] Myelodysplastic disease, not elsewhere classified (HCC) [C94.6]; Elevated ferritin level [R79.89] 05/28/2025 11:00 AM EDT Infusion Center Hematology/Oncolog y [facility] [place] [address] [place]; Aranesp Inj 06/05/2025 12:45 PM EDT Office Visit [facility] [address] [facility] [address] Sheryl Mckee, OD [address] [place] [address] LVM R/S from 06/07/2025 06/11/2025 10:45 AM EDT Results Only [facility] Laboratory [address] [place] [address] Myelodysplastic disease, not elsewhere classified (HCC) [C94.6]; Elevated ferritin level [R79.89] 06/11/2025 11:00 AM EDT Infusion Center Hematology/Oncolog y [address] [facility] [place] [address] [place]; Aranesp Inj 06/25/2025 10:45 AM EDT Results Only [facility] [place] [address] Myelodysplastic disease, not elsewhere classified (HCC) [C94.6]; Elevated ferritin level [R79.89] 06/25/2025 11:00 AM EDT Infusion Center Hematology/Oncolog y [address] [facility] [place] [address] [place]; Aranesp Inj 07/09/2025 10:20 AM EDT Visit (SP) Office Hematology [address] [place] [address] [place] [address] [place] [address] 6 month follow up 10/02/2025 11:30 AM EST Visit (SP) Office Hematology/Medical Oncology [address] [facility] [place] [address] Comfort Leavitt APRN.MOBILE DEVICE ENGINEER [address] [facility] [place] [address] 6 month OV f/u with labs prior documented as of this encounter Visit Diagnoses Not on filedocumented in this encounter Care Teams Ext Js Developer Relationship Specialty Start Date End Date Cayden Martines MD [address] [place] [address] PCP - General Family Medicine 05/24/23 documented as of this encounter
--- OUTSIDE RECORDS SUMMARY | 2025-04-10 09:10 | XMS_ITS | Encounter Summary ---
Author Organization [facility] Address [facility] [place] [address] Care Team Providers Care Explosive Ordnance Specialist Name Role Phone Cayden Martines MD Primary Care Provider [phone] Source Comments In the event this information is protected by the Federal Confidentiality of Alcohol and Drug AbusePatient Records regulations: The Federal rules restrict any use of the information to criminally investigate or prosecute any alcohol or drug abuse patient.[facility] Encounter Details Date Type Department Care Team (Latest Contact Info) Description 03/31/2025 Travel Social History Tobacco Use Types Packs/Day [...] is lower risk 8 04/12/2023 Data from: https://www.neighborhoodatlas.medicine.[facility].edu/. 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 Not o n file documented as of this encounter Plan of Treatment Upcoming Encounters Date Type Department Care Team (Late st Contact Info) Description 04/16/2025 10:45 AM EDT Results Only [facility] Laboratory [facility] [place] [address] Myelodysplastic disease, not elsewhere classified (HCC) [C94.6]; Elevated ferritin level [R79.89] 04/16/2025 11:00 AM EDT Infusion Center Hematology/Oncolog y [facility] [place] [address] [place]; Aranesp Inj 04/30/2025 10:45 AM EDT Results Only [facility] Laboratory [facility] [place] [address] Myelodysplastic disease, not elsewhere classified (HCC) [C94.6]; Elevated ferritin level [R79.89] 04/30/2025 11:00 AM EDT Infusion Center Hematology/Oncolog y [facility] [place] [address] [place]; Aranesp Inj 05/14/2025 10:45 AM EDT Results Only [facility] Laboratory [address] [place] [address] Myelodysplastic disease, not elsewhere classified (HCC) [C94.6]; Elevated ferritin level [R79.89] 05/14/2025 11:00 AM EDT Infusion Center Hematology/Oncolog y [facility] [place] [address] [place]; Aranesp Inj 05/28/2025 10:45 AM EDT Results Only [facility] Laboratory [address] [place] [address] Myelodysplastic disease, not elsewhere classified (HCC) [C94.6]; Elevated ferritin level [R79.89] 05/28/2025 11:00 AM EDT Infusion Center Hematology/Oncolog y [facility] [place] [address] [place]; Aranesp Inj 06/05/2025 12:45 PM EDT Office Visit OPHT Ophthalmology [address] [place] [address] Sheryl Mckee, OD [address] [place] [address] LVM R/S from 06/07/2025 06/11/2025 10:45 AM EDT Results Only [facility] Laboratory [address] [place] [address] Myelodysplastic disease, not elsewhere classified (HCC) [C94.6]; Elevated ferritin level [R79.89] 06/11/2025 11:00 AM EDT Infusion Center Hematology/Oncolog y [address] [facility] [place] [address] [place]; Aranesp Inj 06/25/2025 10:45 AM EDT Results Only [facility] [place] [address] Myelodysplastic disease, not elsewhere classified (HCC) [C94.6]; Elevated ferritin level [R79.89] 06/25/2025 11:00 AM EDT Infusion Center Hematology/Oncolog y [address] [facility] [place] [address] [place]; Aranesp Inj 07/09/2025 10:20 AM EDT Visit (SP) Office Hematology [address] [place] [address] [place] [address] [place] [address] 6 month follow up 10/02/2025 11:30 AM EST Visit (SP) Office Hematology/Medical Oncology [address] [facility] [place] [address] Comfort Leavitt APRN.CLINICAL LAW PROFESSOR [address] [facility] [place] [address] 6 month OV f/u with labs prior documented as of this encounter Visit Diagnoses Not on filedocumented in this encounter Care Teams Explosive Ordnance Specialist Relationship Specialty Start Date End Date Cayden Martines MD [address] [place] [address] PCP - General Family Medicine 05/24/23 documented as of this encounter
--- OUTSIDE RECORDS SUMMARY | 2025-04-10 09:10 | XMS_ITS | Encounter Summary ---
Author Organization [facility] Address [facility] [place] [address] Care Team Providers Care Material Man Name Role Phone Cayden Martines MD Primary Care Provider [phone] Source Comments In the event this information is protected by the Federal Confidentiality of Alcohol and Drug AbusePatient Records regulations: The Federal rules restrict any use of the information to criminally investigate or prosecute any alcohol or drug abuse patient.[facility] Encounter Details Date Type Department Care Team (Late st Contact Info) Description 12/13/2023 Patient Msg Hematology/Medical Oncology [address] [place] [address] Provider, Ccf Appointment change Social History Tobacco Use Types Packs/Day Years Used Date Smoking Tobacco: Former Cigarettes Q uit: 2020 Smokeless Tobacco: Never Alcohol Use Standard Drinks/Week Comments Not Currently 0 (1 standard drink = 0.6 oz pur e alcohol) PHQ-2 Answer Date Recorded PHQ-2 score 0 09/24/2023 Area Deprivation Index Answer Date Rui rded National Score (1-100), lower number is lower ri sk 87 04/12/2023 State Score (1-10), lower number is lower risk 8 04/12/2023 Data from: https://www.neighborhoodatlas.[facility].edu/. 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 Not on file Not o n file documented as of this encounter Plan of Treatment Upcoming Encounters Date Type Department Care Team (Late st Contact Info) Description 04/16/2025 10:45 AM EDT Results Only [facility] [place] [address] Myelodysplastic disease, not elsewhere classified (HCC) [C94.6]; Elevated ferritin level [R79.89] 04/16/2025 11:00 AM EDT Infusion Center Hematology[place] [address] [place]; Aranesp Inj 04/30/2025 10:45 AM EDT Results Only [facility] Laboratory [facility] [place] [address] Myelodysplastic disease, not elsewhere classified (HCC) [C94.6]; Elevated ferritin level [R79.89] 04/30/2025 11:00 AM EDT Infusion Center Hematology[place] [address] [place]; Aranesp Inj 05/14/2025 10:45 AM EDT Results Only [facility] Laboratory [address] [place] [address] Myelodysplastic disease, not elsewhere classified (HCC) [C94.6]; Elevated ferritin level [R79.89] 05/14/2025 11:00 AM EDT Infusion Center Hematology[place] [address] [place]; Aranesp Inj 05/28/2025 10:45 AM EDT Results Only [facility] [address] [place] [address] Myelodysplastic disease, not elsewhere classified (HCC) [C94.6]; Elevated ferritin level [R79.89] 05/28/2025 11:00 AM EDT Infusion Center Hematology/Oncolog y [facility] [place] [address] [place]; Aranesp Inj 06/05/2025 12:45 PM EDT Office Visit OPHT Ophthalmology [address] [place] [address] Sheryl Mckee, OD [address] [place] [address] LVM R/S from 06/07/2025 06/11/2025 10:45 AM EDT Results Only [facility] [place] [address] Myelodysplastic disease, not elsewhere classified (HCC) [C94.6]; Elevated ferritin level [R79.89] 06/11/2025 11:00 AM EDT Infusion Center Hematology/Oncolog y [facility] [place] [address] [place]; Aranesp Inj 06/25/2025 10:45 AM EDT Results Only [facility] [place] [address] Myelodysplastic disease, not elsewhere classified (HCC) [C94.6]; Elevated ferritin level [R79.89] 06/25/2025 11:00 AM EDT Infusion Center Hematology/Oncolog y [facility] [place] [address] [place]; Aranesp Inj 07/09/2025 10:20 AM EDT Visit (SP) Office Hematology [address] [place] [address] [place] [address] [place] [address] 6 month follow up 10/02/2025 11:30 AM EST Visit (SP) Office Hematology/Medical [facility] [place] [address] Comfort Leavitt APRN.POT SANDER [address] [place] [address] 6 month OV f/u with labs prior documented as of this encounter Visit Diagnoses Not on filedocumented in this encounter Care Teams Material Man Relationship Specialty Start Date End Date Cayden Martines MD [address] [place] [address] PCP - General Family Medicine 05/24/23 documented as of this encounter
--- OUTSIDE RECORDS SUMMARY | 2025-04-10 09:10 | XMS_ITS | Encounter Summary ---
Author Organization [facility] Address [employer] [place] [address] Care Team Providers Care Architectural Associate Name Role Phone Cayden Martines MD Primary Care Provider [phone] Encounter Details Date Type Department Care Team (Late st Contact Info) Description 03/24/2022 Legacy Encounter [facility] Dept Provider, Legacy [...] Telephone Encounter - Legacy Conversion Provider - 03/24/2022 8:16 AM EDT Rx requested: Requested Prescriptions Pending Prescriptions Disp Refills ??? [id number] (TRELEGY ELLIPTA) 100-62.5-25 MCG/INH AEPB 3 each 2 Sig: Inhale 1 puff into the lungs daily Last Office Visit: 03/03/2022 Next Visit Date: Future Appointments Date Time Provider Department Center 03/25/2022 9:30 AM [facility] 03/30/2022 9:30 AM [facility] 1 [facility] 04/01/2022 9:30 AM [facility] 1 [facility] 04/06/2022 9:30 AM [facility] 1 [facility] 04/08/2022 9:30 AM [facility] 1 [facility] 04/13/2022 9:30 AM [facility] 1 [facility] 04/15/2022 9:30 AM [facility] 1 [facility] 04/20/2022 9:30 AM [facility] 1 [facility] 04/22/2022 9:30 AM [facility] 1 [facility] 04/27/2022 9:30 AM [facility] 1 [facility] 04/29/2022 9:30 AM [facility] 1 [facility] 05/04/2022 9:30 AM [facility] 1 [facility] 05/06/2022 9:30 AM [facility] 1 [facility] 05/07/2022 10:00 AM DO Albaro Nicole 05/11/2022 9:30 AM [facility] 1 [facility] Center 05/13/2022 9:30 AM [facility] 1 [facility] 05/18/2022 9:30 AM [facility] 1 [facility] 05/20/2022 9:30 AM [facility] 1 [facility] 05/25/2022 9:30 AM [facility] 1 [facility] 05/27/2022 9:30 AM [facility] 1 [facility] 06/01/2022 9:30 AM [facility] 1 [facility] 06/03/2022 9:30 AM [facility] 1 [facility] 06/08/2022 9:30 AM [facility] 1 [facility] 06/10/2022 9:30 AM [facility] 1 [facility] 06/15/2022 9:30 AM [facility] 1 [facility] 06/17/2022 9:30 AM [facility] 1 [facility] 06/22/2022 9:30 AM [facility] 1 [facility] 06/24/2022 9:30 AM [facility] 1 [facility] 06/29/2022 9:30 AM [facility] 1 [facility] 07/01/2022 9:30 AM [facility] 1 [facility] 07/06/2022 9:30 AM [facility]UL[facility] 1 [facility] 07/08/2022 9:30 AM [facility] 1 [facility] 07/08/2022 11:00 AM MD Albaro Lakhani 07/13/2022 9:30 AM [facility] 1 [facility] 07/15/2022 9:30 AM [facility] 1 [facility] 07/20/2022 9:30 AM [facility]UL[facility] 1 [facility] Center 07/22/2022 9:30 AM [facility]UL[facility] 1 [facility] 12/16/2022 8:30 AM MD Wolf Vivas documented in this encounter Plan of Treatment Not on file documented as of this encounter Visit Diagnoses Not on filedocumented in this encounter Care Teams Architectural Associate Relationship Specialty Start Date End Date Cayden Martines MD [address] [place] [address] PCP - General 11/08/18 documented as of this encounter
--- OUTSIDE RECORDS SUMMARY | 2025-04-10 09:10 | XMS_ITS | Encounter Summary ---
Author Organization [facility] Address [facility] [place] [address] Care Team Providers Care Communications Programmer Name Role Phone Cayden Martines MD Primary Care Provider [phone] Source Comments In the event this information is protected by the Federal Confidentiality of Alcohol and Drug AbusePatient Records regulations: The Federal rules restrict any use of the information to criminally investigate or prosecute any alcohol or drug abuse patient.[facility] Encounter Details Date Type Department Care Team (Late st Contact Info) Description 06/28/2023 Patient Msg Ophthalmology [address] [place] [address] Provider, [facility] Cataract Surgery Appointments Social History Tobacco Use Types Packs/Day Years Used Date Smoking Tobacco: Former Cigarettes Q uit: 2020 Smokeless Tobacco: Never Alcohol Use Standard Drinks/Week Comments Not Currently 0 (1 standard drink = 0.6 oz pur e alcohol) PHQ-2 Answer Date Recorded PHQ-2 score 1 06/26/2023 Area Deprivation Index Answer Date Rui rded National Score (1-100), lower number is lower ri sk 87 04/12/2023 State Score (1-10), lower number is lower risk 8 04/12/2023 Data from: https://www.neighborhoodatlas.medicine.[facility].edu/. 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 Not o n file documented as of this encounter Plan of Treatment Upcoming Encounters Date Type Department Care Team (Late st Contact Info) Description 04/16/2025 10:45 AM EDT Results Only [facility] [place] [address] Myelodysplastic disease, not elsewhere classified (HCC) [C94.6]; Elevated ferritin level [R79.89] 04/16/2025 11:00 AM EDT Infusion Center Hematology/Oncolog y [facility] [place] [address] [place]; Aranesp Inj 04/30/2025 10:45 AM EDT Results Only [facility] [place] [address] Myelodysplastic disease, not elsewhere classified (HCC) [C94.6]; Elevated ferritin level [R79.89] 04/30/2025 11:00 AM EDT Infusion [facility] [place] [facility] [place] [address] [place]; Aranesp Inj 05/14/2025 10:45 AM EDT Results Only [facility] Laboratory [facility] [place] [address] Myelodysplastic disease, not elsewhere classified (HCC) [C94.6]; Elevated ferritin level [R79.89] 05/14/2025 11:00 AM EDT Infusion Center Hematology[facility] [place] [facility] [place] [address] [place]; Aranesp Inj 05/28/2025 10:45 AM EDT Results Only [facility] [place] [address] Myelodysplastic disease, not elsewhere classified (HCC) [C94.6]; Elevated ferritin level [R79.89] 05/28/2025 11:00 AM EDT Infusion Center Hematology/Oncolog y [facility] [address] [facility] [place] [address] [place]; Aranesp Inj 06/05/2025 12:45 PM EDT Office Visit OPHT Ophthalmology [address] [place] [address] Sheryl Mckee, OD [address] [place] [address] LVM R/S from 06/07/2025 06/11/2025 10:45 AM EDT Results Only [facility] [place] [address] Myelodysplastic disease, not elsewhere classified (HCC) [C94.6]; Elevated ferritin level [R79.89] 06/11/2025 11:00 AM EDT Infusion Center Hematology/Oncolog y [facility] [place] [address] [place]; Aranesp Inj 06/25/2025 10:45 AM EDT Results Only [facility] [place] [address] Myelodysplastic disease, not elsewhere classified (HCC) [C94.6]; Elevated ferritin level [R79.89] 06/25/2025 11:00 AM EDT Infusion Center Hematology/Oncolog y [facility] [place] [address] [place]; Aranesp Inj 07/09/2025 10:20 AM EDT Visit (SP) Office Hematology [address] [place] [address] [place] [address] [place] [address] 6 month follow up 10/02/2025 11:30 AM EST Visit (SP) Office Hematology[facility] [place] [address] Comfort Leavitt APRN.PROFILE SAW SETUP OPERATOR [address] [place] [address] 6 month OV f/u with labs prior documented as of this encounter Visit Diagnoses Not on filedocumented in this encounter Care Teams Communications Programmer Relationship Specialty Start Date End Date Cayden Martines MD [address] [place] [address] PCP - General Family Medicine 05/24/23 documented as of this encounter
--- OUTSIDE RECORDS SUMMARY | 2025-04-10 09:10 | XMS_ITS | Encounter Summary ---
Author Organization [facility] Address [facility] [place] [address] Care Team Providers Care Steel Erector Apprentice Name Role Phone Cayden Martines MD Primary Care Provider [phone] Source Comments In the event this information is protected by the Federal Confidentiality of Alcohol and Drug AbusePatient Records regulations: The Federal rules restrict any use of the information to criminally investigate or prosecute any alcohol or drug abuse patient.[facility] Encounter Details Date Type Department Care Team (Late st Contact Info) Description 04/04/2025 Results Follow-Up Hematology/Oncology [address] [place] [id number] [place] [address] [place] [address] Social History Tobacco Use Types Packs/Day Years [...] is lower risk 8 04/12/2023 Data from: https://www.neighborhoodatlas.medicine.[facility]/. 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 Not on file Not o n file documented as of this encounter Plan of Treatment Upcoming Encounters Date Type Department Care Team (Late st Contact Info) Description 04/16/2025 10:45 AM EDT Results Only [facility] [address] Myelodysplastic disease, not elsewhere classified (HCC) [C94.6]; Elevated ferritin level [R79.89] 04/16/2025 11:00 AM EDT Infusion Center Hematology/Oncolog y [address] [place] [address] [place]; Aranesp Inj 04/30/2025 10:45 AM EDT Results Only [facility] [place] [address] Myelodysplastic disease, not elsewhere classified (HCC) [C94.6]; Elevated ferritin level [R79.89] 04/30/2025 11:00 AM EDT Infusion Center Hematology/Oncolog y [address] [place] [address] [place]; Aranesp Inj 05/14/2025 10:45 AM EDT Results Only [facility] [address] [place] [address] Myelodysplastic disease, not elsewhere classified (HCC) [C94.6]; Elevated ferritin level [R79.89] 05/14/2025 11:00 AM EDT Infusion Center Hematology/Oncolog y [address] [place] [address] [place]; Aranesp Inj 05/28/2025 10:45 AM EDT Results Only [facility] [place] [address] Myelodysplastic disease, not elsewhere classified (HCC) [C94.6]; Elevated ferritin level [R79.89] 05/28/2025 11:00 AM EDT Infusion Center Hematology/[place] [address] [place]; Aranesp Inj 06/05/2025 12:45 PM EDT Office Visit [facility] Ophthal[facility] [address] [facility] [place] [address] Sheryl Mckee, OD [address] [place] [address] LVM R/S from 06/07/2025 06/11/2025 10:45 AM EDT Results Only [facility] [place] [address] Myelodysplastic disease, not elsewhere classified (HCC) [C94.6]; Elevated ferritin level [R79.89] 06/11/2025 11:00 AM EDT Infusion Center Hematology[place] [address] [place]; Aranesp Inj 06/25/2025 10:45 AM EDT Results Only [facility] [place] [address] Myelodysplastic disease, not elsewhere classified (HCC) [C94.6]; Elevated ferritin level [R79.89] 06/25/2025 11:00 AM EDT Infusion Center Hematology[place] [address] [place]; Aranesp Inj 07/09/2025 10:20 AM EDT Visit (SP) Office Hematology [address] [place] [address] [place] [address] [place] [address] 6 month follow up 10/02/2025 11:30 AM EST Visit (SP) Office Hematology/Medical Oncology [address] [place], [place] [phone] Comfort Leavitt APRN.BULK LOADER [address] [place] [address] 6 month OV f/u with labs prior documented as of this encounter Visit Diagnoses Not on filedocumented in this encounter Care Teams Steel Erector Apprentice Relationship Specialty Start Date End Date Cayden Martines MD [address] [place] [address] PCP - General Family Medicine 05/24/23 documented as of this encounter
--- OUTSIDE RECORDS SUMMARY | 2025-04-10 09:10 | XMS_ITS | Encounter Summary ---
Author Organization [facility] Address [facility] [place] [address] Care Team Providers Care Bmet Name Role Phone Cayden Martines MD Primary Care Provider [phone] Encounter Details Date Type Department Care Team (Late st Contact Info) Description 10/16/2021 Legacy Encounter [facility] Legacy Dept Provider, Legacy Conversion Social History Tobacco Use Types Packs/Day Years Used Date Smoking Tobacco: Never Assessed Sex and Gender Information Value Date Recorded Sex Assigned at Male 08/19/2022 6:44 PM EDT Legal Sex Male 4:15 PM EDT Gender Identity Male 08/19/2022 6:44 PM EDT Sexual Orientation Straight 08/19/2022 6: 44 PM EDT documented as of this encounter Progress Notes * Legacy Conversion Provider - 10/16/2021 10:29 AM EST Biopsy results not available, patient will return next week. This encounter was created in error - please disregard. documented in this encounter Plan of Treatment Not on file documented as of this encounter Visit Diagnoses Not on filedocumented in this encounter Care Teams Bmet Relationship Specialty Start Date End Date Cayden Martines MD [facility] [place] [address] PCP - General 11/08/18 documented as of this encounter
--- OUTSIDE RECORDS SUMMARY | 2025-04-10 09:10 | XMS_ITS | Encounter Summary ---
Author Organization [facility] Address [address] [place] [address] Care Team Providers Care Logistics Research Engineer Name Role Phone Cayden Martines MD Primary Care Provider [phone] Encounter Details Date Type Department Care Team (Late st Contact Info) Description 10/07/2021 Legacy Encounter [facility] Legacy Dept Provider, Legacy [...] Telephone Encounter - Legacy Conversion Provider - 10/07/2021 7:58 AM EST Comments: Last Office Visit (last PCP visit): 07/03/2021 Next Visit Date: Future Appointments Date Time Provider Department Center 10/09/2021 9:[address] ROOM [address] [facility] RAD 10/12/2021 11:00 AM Comfort Del Toro APRN - [facility] If hasn't been seen in over a year OR hasn't followed up according to last diabetes/ADHD visit, make appointment for patient before sending refill to provider. Rx requested: Requested Prescriptions Pending Prescriptions Disp Refills ??? finasteride (PROSCAR) 5 MG tablet [Pharmacy Med Name: FINASTERIDE 5 MG TABLET] 30 tablet Sig: take 1 tablet by mouth once daily EDT documented in this encounter Plan of Treatment Not on file documented as of this encounter Visit Diagnoses Not on filedocumented in this encounter Care Teams Logistics Research Engineer Relationship Specialty Start Date End Date Cayden Martines MD [address] [place] [address] PCP - General 11/08/18 documented as of this encounter
--- OUTSIDE RECORDS SUMMARY | 2025-04-10 09:10 | XMS_ITS | Encounter Summary ---
Author Organization [facility] Address [address] [place] [address] Care Team Providers Care Forensics Analyst Name Role Phone Cayden Martines MD Primary Care Provider [phone] Encounter Details Date Type Department Care Team (Late st Contact Info) Description 09/03/2019 Legacy Encounter [facility] Legacy Dept Provider, Legacy Conversion Social History [...] Progress Notes * Legacy Conversion Provider - 09/03/2019 10:21 AM EST Pt awake and alert, states pain is 2-3 on pain scale and refuses pain med. Left inguinal incisionintact, site soft and without swelling., ice pack on. Pt tolerating po ice chips. EDT * Legacy Conversion Provider - 09/03/2019 9:[address] El in, spoke with patient, patient, states surgical pain is about a 2 . EDT * Legacy Conversion Provider - 09/03/2019 9:40 AM EST Received from or into pacu on a cart accompanied in by beverley Martinez. O2 on at 3L NC, breath sounds clear toanterior auscultation, SAO2 95%. MP RSR. Left inguinal incision noted intact with surgicalglue, site soft. EDT * Legacy Conversion Provider - 08/31/2019 2:53 PM EDT Phone PAT completed. EDT documented in this encounter Miscellaneous Notes * Brief Op Note - Legacy Conversion Provider - 09/03/2019 8:49 AM EST Brief Postoperative Note Patient: Ben Casanova Date of : 1950 Date of Procedure: 09/03/2019 Pre-Op Diagnosis: LEFT INGUINAL HERNIA Post-Op Diagnosis: Same Procedure(s): REPAIR OF LEFT INGUINAL HERNIA WITH MESH Anesthesia: Regional, Monitor Anesthesia Care Surgeon(s): Estrella Noel MD Chemistry Faculty Member: Ricardo Estimated Blood Loss (mL): less than 50 Complications: None Specimens: * No specimens in log * Implants: Implant Name Type Inv. Item Serial No. Research Laboratory Technician Lot No. [id number] No. Used MESH SURG PINKY PLUG PERFIX XL 1.6X2IN Mesh MESH SURG PINKY PLUG PERFIX XL 1.6X2IN [employer] [id number] Left 1 Drains: * No LDAs found * Findings: large indirect LIH Estrella Noel MD Date: 09/03/2019 Time: 9:26 AM * Op Note - Legacy Conversion Provider - 09/03/2019 6:46 [place] [address] OPERATIVE REPORT PATIENT NAME: BEN CASANOVA : 1950 [facility] REC NO: [id number] ROOM: ACCOUNT NO: [id number] ADMIT DATE: 09/03/2019 PROVIDER: Estrella Noel MD DATE OF PROCEDURE: 09/03/2019 PREOPERATIVE DIAGNOSIS: Left inguinal hernia. POSTOPERATIVE DIAGNOSIS: Indirect left inguinal hernia. OPERATION PERFORMED: Left inguinal hernia repair with mesh. SURGEON: Estrella Noel MD ANESTHESIA: TAP block with MAC. ESTIMATED BLOOD LOSS: Less than 50 mL. HISTORY: The patient is a 68-year-old male who has a symptomatic left inguinal hernia. After discussing with him his options of therapy, he was agreeable to hernia repair. The procedure as well as the risks and complications were discussed including infection, blood loss, damage to surrounding structures, chronic pain, recurrence and even the possibility of needing further surgery in the future if all this does occur. He understands all that and is agreeable to the procedure. OPERATIVE PROCEDURE: The patient was brought in the operative suite, placed in the supine position where anesthesia was induced after a TAP block had been given in the holding area. He was given MAC anesthesia. The left groin incision was then made and carried down through the subcutaneous tissue to the external oblique. The external oblique was opened up through the external ring and the spermatic cord and its structures were identified. There was noted to be a large indirect inguinal hernia. It was dissected away from the surrounding cord structures, reduced back into the internal ring where an extra large PerFix plug was put into place and sutured circumferentially with 2-0 Vicryl. An Onlay patch was then cut to fit the floor of the inguinal canal and sutured medially and laterally with 2-0 Vicryl. There was no evidence of a femoral or direct hernia. The spermatic cord and its structures were intact with good hemostasis and placed back in the inguinal canal and the external oblique was closed using 2-0 Vicryl. A 3-0 Vicryl was used for the subcutaneous tissue and the skin was closed with 4-0 Monocryl with skin glue on the skin edge. He tolerated the procedure well, went to recovery in stable condition and I spoke with family at the end of the procedure. ESTRELLA NOEL MD DEMETRIUS/[email or web address] Doc#: [id number] CC: documented in this encounter Plan of Treatment Not on file documented as of this encounter Visit Diagnoses Not on filedocumented in this encounter Care Teams Forensics Analyst Relationship Specialty Start Date End Date Cayden Martines MD [address] [place] [address] PCP - General 11/08/18 documented as of this encounter
--- OUTSIDE RECORDS SUMMARY | 2025-04-10 09:10 | XMS_ITS | Encounter Summary ---
Author Organization [facility] Address [facility] [place] [address] Care Team Providers Care Maintenance Journeyman Name Role Phone Cayden Martines MD Primary Care Provider [phone] Source Comments In the event this information is protected by the Federal Confidentiality of Alcohol and Drug AbusePatient Records regulations: The Federal rules restrict any use of the information to criminally investigate or prosecute any alcohol or drug abuse patient.[facility] Encounter Details Date Type Department Care Team (Late st Contact Info) Description 02/07/2025 Patient Msg Hematology [address] [place] [address] [place] [address] [address] [place], [place] [phone] iron Social History Tobacco Use Types Packs/Day Years Used Date Smoking Tobacco: Former Cigarettes Q uit: 2020 Smokeless Tobacco: Never Alcohol Use Standard Drinks/Week Comments Not Currently 0 (1 standard drink = 0.6 oz pur e alcohol) PHQ-2 Answer Date Recorded PHQ-2 score 4 12/24/2024 Area Deprivation Index Answer Date Rui rded National Score (1-100), lower number is lower ri sk 87 04/12/2023 State Score (1-10), lower number is lower risk 8 04/12/2023 Data from: https://www.neighborhoodatlas.medicine.[facility]/. 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 Not on file Not o n file documented as of this encounter Plan of Treatment Upcoming Encounters Date Type Department Care Team (Late st Contact Info) Description 04/16/2025 10:45 AM EDT Results Only [facility] [place] [address] Myelodysplastic disease, not elsewhere classified (HCC) [C94.6]; Elevated ferritin level [R79.89] 04/16/2025 11:00 AM EDT Infusion Center Hematology/Oncolog y [address] [place] [address] [place]; Aranesp Inj 04/30/2025 10:45 AM EDT Results Only [facility] [place] [address] Myelodysplastic disease, not elsewhere classified (HCC) [C94.6]; Elevated ferritin level [R79.89] 04/30/2025 11:00 AM EDT Infusion Center Hematology/Oncolog y [address] [place] [address] [place]; Aranesp Inj 05/14/2025 10:45 AM EDT Results Only [facility] [address] [place], [place] [address] [address] Myelodysplastic disease, not elsewhere classified (HCC) [C94.6]; Elevated ferritin level [R79.89] 05/14/2025 11:00 AM EDT Infusion Center Hematology/Oncolog y [address] [place] [address] [place]; Aranesp Inj 05/28/2025 10:45 AM EDT Results Only [facility] [place] [address] Myelodysplastic disease, not elsewhere classified (HCC) [C94.6]; Elevated ferritin level [R79.89] 05/28/2025 11:00 AM EDT Infusion Center Hematology[place] [address] [place]; Aranesp Inj 06/05/2025 12:45 PM EDT Office Visit OPHT Ophthalmology [address] [place] [address] Sheryl Mckee, OD [address] [place] [address] LVM R/S from 06/07/2025 06/11/2025 10:45 AM EDT Results Only [facility] [place] [address] Myelodysplastic disease, not elsewhere classified (HCC) [C94.6]; Elevated ferritin level [R79.89] 06/11/2025 11:00 AM EDT Infusion Center Hematology[place] [address] [place]; Aranesp Inj 06/25/2025 10:45 AM EDT Results Only [facility] [place] [address] Myelodysplastic disease, not elsewhere classified (HCC) [C94.6]; Elevated ferritin level [R79.89] 06/25/2025 11:00 AM EDT Infusion Center Hematology[place] [address] [place]; Aranesp Inj 07/09/2025 10:20 AM EDT Visit (SP) Office Hematology [address] [place] [address] [place] [address] [place] [address] 6 month follow up 10/02/2025 11:30 AM EST Visit (SP) Office Hematology/Medical Oncology [address] [place] [address] Comfort Leavitt APRN.SCUBA DIVER [address] [place] [address] 6 month OV f/u with labs prior documented as of this encounter Visit Diagnoses Not on filedocumented in this encounter Care Teams Maintenance Journeyman Relationship Specialty Start Date End Date Cayden Martines MD [address] [place] [address] PCP - General Family Medicine 05/24/23 documented as of this encounter
--- OUTSIDE RECORDS SUMMARY | 2025-04-10 09:10 | XMS_ITS | Encounter Summary ---
Author Organization [facility] Address [facility] [place] [address] Care Team Providers Care Processing Analyst Name Role Phone Cayden Martines MD Primary Care Provider [phone] Source Comments In the event this information is protected by the Federal Confidentiality of Alcohol and Drug AbusePatient Records regulations: The Federal rules restrict any use of the information to criminally investigate or prosecute any alcohol or drug abuse patient.[facility] Encounter Details Date Type Department Care Team (Late st Contact Info) Description 09/28/2023 Get Medical Advice Hematology/Medical Oncology [address] [place], [place] [phone] [place] [address] [address] [place], [place] [phone] Hemochromatosis Social History Tobacco Use Types Packs/Day Years [...] is lower risk 8 04/12/2023 Data from: https://www.neighborhoodatlas.medicine.[facility]/. 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 file Not o n file documented as of this encounter Plan of Treatment Upcoming Encounters Date Type Department Care Team (Late st Contact Info) Description 04/16/2025 10:45 AM EDT Results Only [facility] [place] [address] Myelodysplastic disease, not elsewhere classified (HCC) [C94.6]; Elevated ferritin level [R79.89] 04/16/2025 11:00 AM EDT Infusion Center Hematology/Oncolog y [address] [place] [address] [place]; Aranesp Inj 04/30/2025 10:45 AM EDT Results Only [facility] [place] [address] Myelodysplastic disease, not elsewhere classified (HCC) [C94.6]; Elevated ferritin level [R79.89] 04/30/2025 11:00 AM EDT Infusion Center Hematology/Oncolog y [facility] [place] [address] [place]; Aranesp Inj 05/14/2025 10:45 AM EDT Results Only [facility] [place] [address] Myelodysplastic disease, not elsewhere classified (HCC) [C94.6]; Elevated ferritin level [R79.89] 05/14/2025 11:00 AM EDT Infusion Center Hematology/Oncolog y [address] [place] [address] [place]; Aranesp Inj 05/28/2025 10:45 AM EDT Results Only [facility] [place] [address] Myelodysplastic disease, not elsewhere classified (HCC) [C94.6]; Elevated ferritin level [R79.89] 05/28/2025 11:00 AM EDT Infusion Center Hematology[place] [address] [place]; Aranesp Inj 06/05/2025 12:45 PM EDT Office Visit OPHT Ophthalmology [address] [facility] [place] [address] Sheryl Mckee, OD [address] [facility] [place] [address] LVM R/S from 06/07/2025 06/11/2025 10:45 AM EDT Results Only [facility] [place] [address] Myelodysplastic disease, not elsewhere classified (HCC) [C94.6]; Elevated ferritin level [R79.89] 06/11/2025 11:00 AM EDT Infusion Center Hematology[place] [address] [place]; Aranesp Inj 06/25/2025 10:45 AM EDT Results Only [facility] [place] [address] Myelodysplastic disease, not elsewhere classified (HCC) [C94.6]; Elevated ferritin level [R79.89] 06/25/2025 11:00 AM EDT Infusion Center Hematology[place] [address] [place]; Aranesp Inj 07/09/2025 10:20 AM EDT Visit (SP) Office Hematology [address] [facility] [place] [address] [place] [address] [place] [address] 6 month follow up 10/02/2025 11:30 AM EST Visit (SP) Office Hematology/Medical Oncology [address] [place], [place] [phone] Comfort Leavitt APRN.LIMB DRIVER [address] [facility] [place] [address] 6 month OV f/u with labs prior documented as of this encounter Visit Diagnoses Not on filedocumented in this encounter Care Teams Processing Analyst Relationship Specialty Start Date End Date Cayden Martines MD [address] [place] [address] PCP - General Family Medicine 05/24/23 documented as of this encounter
--- OUTSIDE RECORDS SUMMARY | 2025-04-10 09:10 | XMS_ITS | Encounter Summary ---
Author Organization [facility] Address [facility] [place] [address] Care Team Providers Care Procurement Intern Name Role Phone Cayden Martines MD Primary Care Provider [phone] Source Comments In the event this information is protected by the Federal Confidentiality of Alcohol and Drug AbusePatient Records regulations: The Federal rules restrict any use of the information to criminally investigate or prosecute any alcohol or drug abuse patient.[facility] Encounter Details Date Type Department Care Team (Late st Contact Info) Description 03/07/2025 Results Follow-Up Hematology/Oncology [address] [place] [id number] [place] [address] [place] [address] Social History Tobacco Use Types Packs/Day Years [...] is lower risk 8 04/12/2023 Data from: https://www.neighborhoodatlas.medicine.[facility]/. 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 file Not o n file documented as of this encounter Plan of Treatment Upcoming Encounters Date Type Department Care Team (Late st Contact Info) Description 04/16/2025 10:45 AM EDT Results Only [facility] [place] [address] Myelodysplastic disease, not elsewhere classified (HCC) [C94.6]; Elevated ferritin level [R79.89] 04/16/2025 11:00 AM EDT Infusion Center Hematology/Oncolog y [address] [place] [address] [place]; Aranesp Inj 04/30/2025 10:45 AM EDT Results Only [facility] [place] [address] Myelodysplastic disease, not elsewhere classified (HCC) [C94.6]; Elevated ferritin level [R79.89] 04/30/2025 11:00 AM EDT Infusion Center Hematology/Oncolog y [address] [place] [address] [place]; Aranesp Inj 05/14/2025 10:45 AM EDT Results Only [facility] [address] [place] [address] Myelodysplastic disease, not elsewhere classified (HCC) [C94.6]; Elevated ferritin level [R79.89] 05/14/2025 11:00 AM EDT Infusion Center Hematology/Oncolog y [address] [place] [address] [place]; Aranesp Inj 05/28/2025 10:45 AM EDT Results Only [facility] [place] [address] Myelodysplastic disease, not elsewhere classified (HCC) [C94.6]; Elevated ferritin level [R79.89] 05/28/2025 11:00 AM EDT Infusion Center Hematology[place] [address] [place]; Aranesp Inj 06/05/2025 12:45 PM EDT Office Visit [facility] [address] [facility] [place] [address] Sheryl Mckee, OD [address] [place] [address] LVM R/S from 06/07/2025 06/11/2025 10:45 AM EDT Results Only [facility] [place] [address] Myelodysplastic disease, not elsewhere classified (HCC) [C94.6]; Elevated ferritin level [R79.89] 06/11/2025 11:00 AM EDT Infusion Center Hematology/[place] [address] [place]; Aranesp Inj 06/25/2025 10:45 AM EDT Results Only [facility] [place] [address] Myelodysplastic disease, not elsewhere classified (HCC) [C94.6]; Elevated ferritin level [R79.89] 06/25/2025 11:00 AM EDT Infusion Center Hematology[place] [address] [place]; Aranesp Inj 07/09/2025 10:20 AM EDT Visit (SP) Office Hematology [address] [place] [address] [place] [address] [place] [address] 6 month follow up 10/02/2025 11:30 AM EST Visit (SP) Office Hematology/Medical Oncology [address] [place], [place] [id number] Comfort Leavitt APRN.DREDGE PIPEMAN [address] [place] [address] 6 month OV f/u with labs prior documented as of this encounter Visit Diagnoses Not on filedocumented in this encounter Care Teams Procurement Intern Relationship Specialty Start Date End Date Cayden Martines MD [address] [place] [address] PCP - General Family Medicine 05/24/23 documented as of this encounter
--- OUTSIDE RECORDS SUMMARY | 2025-04-10 09:10 | XMS_ITS ---
Author Organization [facility] Address [facility] [place] [address] Care Team Providers Care Lan Specialist Name Role Phone Cayden Martines MD Primary Care Provider [phone] Active Problems Problem Noted Date Diagnosed Date [...] angiogram in January 2022 S/p left SFA atherectomy/MOBILE SALES CONSULTANT with drug-coated balloon and left external iliac [...] Hgb was 11.7 Dr. Noel Medley at [facility] Main [place] who recommended an erythropoietin stimulating agent now [...] MORALES as needed Follows with Dr. Davis ([facility]mon[facility]) Assessment & Plan (07/27/2023 10:02 AM [...] On Statin and DAPT Follows with Dr. aGmbino Assessment & Plan (07/27/2023 10:03 AM EDT): Assessment: stables/p PTCAx2 following with Dr. Gambino Stable per last ECHO Current Treatment and Therapy Plans AMB DARBEPOETIN 200 - Q14D* Plan Start Date:02/03/2024 Plan Provider:Comfort Leavitt APRN.TIMEKEEPING SUPERVISOR Linked Problems Myelodysplastic disease, not elsewhere classified (HCC) Treatment Medications Current Day (Day 4 3, Cycle 5 - Planned for 04/16/2025) Next Day (Day 57, Cycle 5 - Planned for 04/30/2025) darbepoetin (ARANESP)Darbepoetin Bola In Polysorbat (ARANESP) Darbepoetin Bola In Polysorbat 200 mcg injection (ARANESP) Darbepoetin Bola In Polysorbat 200 mcg injection (ARANESP) Past Treatment and Therapy Plans
--- OUTSIDE RECORDS SUMMARY | 2025-04-10 09:10 | XMS_ITS | Encounter Summary ---
Author Organization [facility] Address [address] [place] [address] Care Team Providers Care Automotive Center Manager Name Role Phone Cayden Martines MD Primary Care Provider [phone] Encounter Details Date Type Department Care Team (Late st Contact Info) Description 01/02/2022 Legacy Encounter [facility] Provider, Legacy [...] Telephone Encounter - Legacy Conversion Provider - 01/02/2022 12:29 PM EST Comments: none Last Office Visit (last PCP visit): 12/15/2021 Next Visit Date: Future Appointments Date Time Provider Department Center 01/19/2022 9:30 AM MD Albaro Lakhani 01/22/2022 10:15 AM DO Albaro Nicole 12/16/2022 8:30 AM MD Wolf Vivas If hasn't been seen in over a year OR hasn't followed up according to last diabetes/ADHD visit, make appointment for patient before sending refill to provider. Rx requested: Requested Prescriptions Pending Prescriptions Disp Refills ??? tamsulosin (FLOMAX) 0.4 MG capsule 180 capsule 1 Sig: Take 2 capsules by mouth daily EDT documented in this encounter Plan of Treatment Not on file documented as of this encounter Visit Diagnoses Not on filedocumented in this encounter Care Teams Automotive Center Manager Relationship Specialty Start Date End Date Cayden Martines MD [address] [place] [address] [id number] PCP - General 11/08/18 documented as of this encounter
--- OUTSIDE RECORDS SUMMARY | 2025-04-10 09:10 | XMS_ITS | Encounter Summary ---
Author Organization [facility] Address [address] [place] [address] Care Team Providers Care Rip And Groove Machine Operator Name Role Phone aCyden Martines MD Primary Care Provider [phone] Encounter Details Date Type Department Care Team (Late st Contact Info) Description 01/03/2022 Legacy Encounter [facility] Provider, Legacy [...] Telephone Encounter - Legacy Conversion Provider - 01/03/2022 2:34 PM EST Comments: Last Office Visit (last PCP visit): 12/15/2021 [...] Refills ??? tamsulosin (FLOMAX) 0.4 MG capsule [Pharmacy Med Name: TAMSULOSIN HCL 0.4 MG CAPSULE] 180 capsule 1 Sig: take 2 capsules by mouth once daily EDT documented in this encounter Plan of Treatment Not on file documented as of this encounter Visit Diagnoses Not on filedocumented in this encounter Care Teams Rip And Groove Machine Operator Relationship Specialty Start Date End Date Cayden Martines MD [address] [place] [address] PCP - General 11/08/18 documented as of this encounter
--- OUTSIDE RECORDS SUMMARY | 2025-04-10 09:10 | XMS_ITS | Encounter Summary ---
Author Organization [facility] Address [address] [place] [address] Care Team Providers Care Database Security Expert Name Role Phone Cayden Martines MD Primary Care Provider Encounter Details Date Type Department Care Team (Late st Contact Info) Description 04/09/2022 Legacy Encounter [facility] Provider, Legacy [...] Telephone Encounter - Legacy Conversion Provider - 04/09/2022 2:20 PM EDT Comments: Last Office Visit (last PCP visit): 12/15/2021 Next Visit Date: Future Appointments Date Time Provider Department Center 04/13/2022 9:30 AM [facility] PULMONARY ROOM [...] [facility] PUL [facility] Center 12/16/2022 8:30 AM [facility] If hasn't been seen in over a year OR hasn't followed up according to last diabetes/ADHD visit, make appointment for patient before sending refill to provider. Rx requested: Requested Prescriptions Pending Prescriptions Disp Refills ??? finasteride (PROSCAR) 5 MG tablet [Pharmacy Med Name: FINASTERIDE 5 MG TABLET] 30 tablet 5 Sig: take 1 tablet by mouth once daily EDT documented in this encounter Plan of Treatment Not on file documented as of this encounter Visit Diagnoses Not on filedocumented in this encounter Care Teams Database Security Expert Relationship Specialty Start Date End Date Cayden Martines MD [address] [place] [address] PCP - General 11/08/18 documented as of this encounter
--- OUTSIDE RECORDS SUMMARY | 2025-04-10 09:10 | XMS_ITS | Encounter Summary ---
Author Organization [facility] Address [address] [place] [address] Care Team Providers Care Cloth Measurer Name Role Phone Cayden Martines MD Primary Care Provider [phone] Encounter Details Date Type Department Care Team (Late st Contact Info) Description 12/05/2019 Legacy Encounter [facility] Provider, Legacy [...] Telephone Encounter - Legacy Conversion Provider - 12/05/2019 11:28 AM EST ERROR EDT documented in this encounter Plan of Treatment Not on file documented as of this encounter Visit Diagnoses Not on filedocumented in this encounter Care Teams Cloth Measurer Relationship Specialty Start Date End Date Cayden Martines MD [address] [place] [address] PCP - General 11/08/18 documented as of this encounter
--- OUTSIDE RECORDS SUMMARY | 2025-04-10 09:10 | XMS_ITS | Encounter Summary ---
Author Organization [facility] Address [facility] [place] [address] Care Team Providers Care Magazine Editor Name Role Phone Cayden Martines MD Primary Care Provider [phone] Source Comments In the event this information is protected by the Federal Confidentiality of Alcohol and Drug AbusePatient Records regulations: The Federal rules restrict any use of the information to criminally investigate or prosecute any alcohol or drug abuse patient.[facility] Encounter Details Date Type Department Care Team (Late st Contact Info) Description 07/29/2023 Get Medical Advice Ophthalmology [address] [place], [place] [phone] Barbara Davila V, MD [address] [place] [address] covid vaccine and upcoming cataract surgery Social History Tobacco Use Types Packs/Day Years [...] is lower risk 8 04/12/2023 Data from: https://www.neighborhoodatlas.medicine.[facility].edu/. 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 Not on file Not o n file documented as of this encounter Plan of Treatment Upcoming Encounters Date Type Department Care Team (Late st Contact Info) Description 04/16/2025 10:45 AM EDT Results Only [facility] [place] [address] Myelodysplastic disease, not elsewhere classified (HCC) [C94.6]; Elevated ferritin level [R79.89] 04/16/2025 11:00 AM EDT Infusion Center Hematology/Oncolog y [facility] [place] [address] [place]; Aranesp Inj 04/30/2025 10:45 AM EDT Results Only [facility] [place] [address] Myelodysplastic disease, not elsewhere classified (HCC) [C94.6]; Elevated ferritin level [R79.89] 04/30/2025 11:00 AM EDT Infusion Center Hematology/Oncolog y [facility] [place] [address] [place]; Aranesp Inj 05/14/2025 10:45 AM EDT Results Only [facility] [place] [address] Myelodysplastic disease, not elsewhere classified (HCC) [C94.6]; Elevated ferritin level [R79.89] 05/14/2025 11:00 AM EDT Infusion Center Hematology/Oncolog y [facility] [place] [address] [place]; Aranesp Inj 05/28/2025 10:45 AM EDT Results Only [facility] [place] [address] Myelodysplastic disease, not elsewhere classified (HCC) [C94.6]; Elevated ferritin level [R79.89] 05/28/2025 11:00 AM EDT Infusion Center Hematology[place] [address] [place]; Aranesp Inj 06/05/2025 12:45 PM EDT Office Visit OPHT Ophthalmology [address] [facility] [place] [place] [address] Sheryl Mckee, OD [address] [facility] [place] [address] LVM R/S from 06/07/2025 06/11/2025 10:45 AM EDT Results Only [facility] [place] [address] Myelodysplastic disease, not elsewhere classified (HCC) [C94.6]; Elevated ferritin level [R79.89] 06/11/2025 11:00 AM EDT Infusion Center Hematology[place] [address] [place]; Aranesp Inj 06/25/2025 10:45 AM EDT Results Only [facility] [place] [address] Myelodysplastic disease, not elsewhere classified (HCC) [C94.6]; Elevated ferritin level [R79.89] 06/25/2025 11:00 AM EDT Infusion Center Hematology[place] [address] [place]; Aranesp Inj 07/09/2025 10:20 AM EDT Visit (SP) Office Hematology [address] [place] [address] [place] [address] [place] [address] 6 month follow up 10/02/2025 11:30 AM EST Visit (SP) Office Hematology/Medical Oncology [address] [place], [place] [id number] Comfort Leavitt APRN.POLICEWOMAN [address] [place] [address] 6 month OV f/u with labs prior documented as of this encounter Visit Diagnoses Not on filedocumented in this encounter Care Teams Magazine Editor Relationship Specialty Start Date End Date Cayden Martines MD [address] [place] [address] PCP - General Family Medicine 05/24/23 documented as of this encounter
--- OUTSIDE RECORDS SUMMARY | 2025-04-10 09:10 | XMS_ITS | Encounter Summary ---
Author Organization [facility] Address [address] [place] [address] Care Team Providers Care Tanner Rotary Drum Continuous Process Name Role Phone Cayden Martines MD Primary Care Provider [phone] Encounter Details Date Type Department Care Team ([facility] st Contact Info) Description 10/15/2021 Legacy Encounter [facility] Legacy Dept Provider, Legacy Conversion Social History Tobacco Use Types Packs/Day Years Used Date Smoking Tobacco: Never Assessed Sex and Gender Information Value Date Recorded Sex Assigned at Male 08/19/2022 6:44 PM EDT Legal Sex Male 4:15 PM EDT Gender Identity Male 08/19/2022 6:44 PM EDT Sexual Orientation Straight 08/19/2022 6: 44 PM EDT documented as of this encounter Last Filed Vital Signs Vital Sign Reading Time Taken Comments Blood Pressure 106/60 10/15/2021 2:44 PM EST Pulse 90 10/15/2021 2:44 PM EST Temperature - - Respiratory Rate 10/15/2021 2:44 PM EST Oxygen Saturation 98% 10/15/2021 2:44 PM EST Inhaled Oxygen Concentration - - Weight 82.1 kg (181 lb) 10/15/2021 2:44 PM EST Height - - Body Mass Index 25.24 08/25/2021 11:58 AM EDT documented in this encounter Miscellaneous Notes * Telephone Encounter - Legacy Conversion Provider - 10/15/2021 8:36 AM EST Comments: Last Office Visit (last PCP visit): 07/03/2021 Next Visit Date: Future Appointments Date Time Provider Department Center 10/15/2021 2:45 PM MD Albaro Tavarez 11/06/2021 9:45 AM Grant Gambino, DO Albaro Irvin If hasn't been seen in over a year OR hasn't followed up according to last diabetes/ADHD visit, make appointment for patient before sending refill to provider. Rx requested: Requested Prescriptions Pending Prescriptions Disp Refills ??? SPIRIVA RESPIMAT 1.25 MCG/ACT AERS inhaler [Pharmacy Med Name: SPIRIVA RESPIMAT INH [id number] 1.25MCG] 12 g 3 Sig: USE 2 INHALATIONS DAILY EDT documented in this encounter Plan of Treatment Not on file documented as of this encounter Visit Diagnoses Not on filedocumented in this encounter Care Teams Tanner Rotary Drum Continuous Process Relationship Specialty Start Date End Date Cayden Martines MD [address] [place] [address] [phone] PCP - General 11/08/18 documented as of this encounter
--- OUTSIDE RECORDS SUMMARY | 2025-04-10 09:10 | XMS_ITS | Encounter Summary ---
Author Organization [facility] Address [address] [place] [address] Care Team Providers Care Presidential Support Specialist Name Role Phone Cayden Martines MD Primary Care Provider [phone] Encounter Details Date Type Department Care Team (Late st Contact Info) Description 11/15/2019 Legacy Encounter [facility] Legacy Dept Provider, Legacy [...] Telephone Encounter - Legacy Conversion Provider - 11/15/2019 1:02 PM EST Rx requested: Requested Prescriptions Pending Prescriptions Disp Refills ??? finasteride (PROSCAR) 5 MG tablet [Pharmacy Med Name: FINASTERIDE 5MG TABS 5MG] 90 tablet 4 Sig: TAKE 1 TABLET DAILY Last Office Visit: 10/16/2019 Last filled: 08/09/19 Next Visit Date: Future Appointments Date Time Provider Department Center 11/28/2019 1:00 PM Bart Baldwin MD [facility] 12/04/2019 9:00 AM MD Wolf Vivas EDT documented in this encounter Plan of Treatment Not on file documented as of this encounter Visit Diagnoses Not on filedocumented in this encounter Care Teams Presidential Support Specialist Relationship Specialty Start Date End Date Cayden Martines MD [address] [place] [address] PCP - General 11/08/18 documented as of this encounter
--- OUTSIDE RECORDS SUMMARY | 2025-04-10 09:10 | XMS_ITS | Encounter Summary ---
Author Organization [facility] Address [address] [place] [address] Care Team Providers Care Public Health Nutritionist Name Role Phone Cayden Martines MD Primary Care Provider [phone] Encounter Details Date Type Department Care Team (Late st Contact Info) Description 09/23/2020 Legacy Encounter [facility] Legacy Dept Provider, Legacy [...] Telephone Encounter - Legacy Conversion Provider - 09/23/2020 4:28 PM EST Requesting medication refill. Please approve or deny this request. Rx requested: Requested Prescriptions Pending Prescriptions Disp Refills ??? SPIRIVA RESPIMAT 1.25 MCG/ACT AERS inhaler [Pharmacy Med Name: SPIRIVA RESPIMAT INH [id number] 1.25MCG] 12 g 3 Sig: USE 2 INHALATIONS DAILY Last Office Visit, reason seen and by who: 12/04/2019 ANNUAL [facility] FOLLOW UP PLAN FROM LAST VISIT: COPY AND PASTE FROM LAST NOTE Return for Medicare Annual Wellness Visit in 1 year. PATIENT CONTACTED FOR A FOLLOW UP APPT: YES OR NO F/U scheduled See below Next Visit Date: Future Appointments Date Time Provider Department Center 12/17/2020 11:15 AM Bart Baldwin MD [facility] EDT documented in this encounter Plan of Treatment Not on file documented as of this encounter Visit Diagnoses Not on filedocumented in this encounter Care Teams Public Health Nutritionist Relationship Specialty Start Date End Date Cayden Martines MD [address] [place] [address] PCP - General 11/08/18 documented as of this encounter
--- OUTSIDE RECORDS SUMMARY | 2025-04-10 09:10 | XMS_ITS | Encounter Summary ---
Author Organization [facility] Address [facility] [place] [address] Care Team Providers Care Rib Chopper Name Role Phone Cayden Martines MD Primary Care Provider [phone] Source Comments In the event this information is protected by the Federal Confidentiality of Alcohol and Drug AbusePatient Records regulations: The Federal rules restrict any use of the information to criminally investigate or prosecute any alcohol or drug abuse patient.[facility] Encounter Details Date Type Department Care Team (Late st Contact Info) Description 08/13/2023 Patient Msg Hematology/Oncology [address] [place], [place] [id number] Provider, Ccf Appointment Cancellation Request Social History Tobacco Use Types Packs/Day Years [...] is lower risk 8 04/12/2023 Data from: https://www.neighborhoodatlas.[facility].edu/. 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 Not on file Not o n file documented as of this encounter Plan of Treatment Upcoming Encounters Date Type Department Care Team (Late st Contact Info) Description 04/16/2025 10:45 AM EDT [facility] [place] [address] Myelodysplastic disease, not elsewhere classified (HCC) [C94.6]; Elevated ferritin level [R79.89] 04/16/2025 11:00 AM EDT Infusion Center Hematology/Oncolog y [facility] [place] [address] [place]; Aranesp Inj 04/30/2025 10:45 AM EDT Results Only [facility] [place] [address] Myelodysplastic disease, not elsewhere classified (HCC) [C94.6]; Elevated ferritin level [R79.89] 04/30/2025 11:00 AM EDT Infusion [facility] [address] [place]; Aranesp Inj 05/14/2025 10:45 AM EDT Results Only [facility] [place] [address] Myelodysplastic disease, not elsewhere classified (HCC) [C94.6]; Elevated ferritin level [R79.89] 05/14/2025 11:00 AM EDT Infusion [facility] [place] [address] [place]; Aranesp Inj 05/28/2025 10:45 AM EDT Results [facility] [place] [address] Myelodysplastic disease, not elsewhere classified (HCC) [C94.6]; Elevated ferritin level [R79.89] 05/28/2025 11:00 AM EDT [facility] [place] [address] [place]; Aranesp Inj 06/05/2025 12:45 PM EDT Office Visit OPHT Ophthalmology [address] [place] [address] Sheryl Mckee, OD [address] [place] [address] LVM R/S from 06/07/2025 06/11/2025 10:45 AM EDT Results Only [facility] [place] [address] Myelodysplastic disease, not elsewhere classified (HCC) [C94.6]; Elevated ferritin level [R79.89] 06/11/2025 11:00 AM EDT Infusion Center Hematology/Oncolog y [facility] [place] [address] [place]; Aranesp Inj 06/25/2025 10:45 AM EDT Results Only [facility] [place] [address] Myelodysplastic disease, not elsewhere classified (HCC) [C94.6]; Elevated ferritin level [R79.89] 06/25/2025 11:00 AM EDT Infusion Center Hematology/Oncolog y [facility] [place] [address] [place]; Aranesp Inj 07/09/2025 10:20 AM EDT Visit (SP) Office Hematology [address] [place] [address] [place] [address] [place] [address] 6 month follow up 10/02/2025 11:30 AM EST Visit (SP) Office Hematology/Medical [place] [address] Comfort Leavitt APRN.SECURITIES SETTLEMENT PROCESSOR [address] [place] [address] 6 month OV f/u with labs prior documented as of this encounter Visit Diagnoses Not on filedocumented in this encounter Care Teams Rib Chopper Relationship Specialty Start Date End Date Cayden Martines MD [address] [place] [address] PCP - General Family Medicine 05/24/23 documented as of this encounter
--- OUTSIDE RECORDS SUMMARY | 2025-04-10 09:10 | XMS_ITS | Encounter Summary ---
Author Organization [facility] Address [address] [place] [address] Care Team Providers Care Metal Pickling Equipment Operator Name Role Phone Cayden Martines MD Primary Care Provider [phone] Encounter Details Date Type Department Care Team (Late st Contact Info) Description 12/17/2020 Legacy Encounter [facility] Dept Provider, Legacy [...] Progress Notes * Legacy Conversion Provider - 12/17/2020 11:15 AM EST This encounter was created in error - please disregard. EDT documented in this encounter Plan of Treatment Not on file documented as of this encounter Visit Diagnoses Not on filedocumented in this encounter Care Teams Metal Pickling Equipment Operator Relationship Specialty Start Date End Date Cayden Martines MD [address] [place] [address] PCP - General 11/08/18 documented as of this encounter
--- OUTSIDE RECORDS SUMMARY | 2025-04-10 09:10 | XMS_ITS | Encounter Summary ---
Author Organization [facility] Address [address] [place] [address] Care Team Providers Care Brazer Electronic Name Role Phone Cayden Martines MD Primary Care Provider [phone] Encounter Details Date Type Department Care Team (Late st Contact Info) Description 05/19/2021 Legacy Encounter [facility] Legacy Dept Provider, Legacy [...] Telephone Encounter - Legacy Conversion Provider - 05/19/2021 11:11 AM EDT Rx requested: Requested Prescriptions Pending Prescriptions Disp Refills ??? ADVAIR DISKUS 250-50 MCG/DOSE AEPB [Pharmacy Med Name: ADVAIR DISKUS 60'S 250/50MCG] 180 each 3 Sig: USE 1 INHALATION EVERY 12 HOURS Last Office Visit: 12/05/2020 Last filled: 05/08/2020 Next Visit Date: Future Appointments Date Time Provider Department Center 05/20/2021 1:00 PM MD RAGHAV [place] 05/21/2021 1:[address] ROOM [address] [facility] Fac RAD 05/26/2021 11:00 AM Ismail S AhMD GUNNAR noel EDT documented in this encounter Plan of Treatment Not on file documented as of this encounter Visit Diagnoses Not on filedocumented in this encounter Care Teams Brazer Electronic Relationship Specialty Start Date End Date Cayden Martines MD [address] [place] [address] PCP - General 11/08/18 documented as of this encounter
--- OUTSIDE RECORDS SUMMARY | 2025-04-10 09:10 | XMS_ITS | Encounter Summary ---
Author Organization [facility] Address [address] [place] [address] Care Team Providers Care Hide Spreader Name Role Phone Cayden Martines MD Primary Care Provider [phone] Encounter Details Date Type Department Care Team [...] Encounter - Legacy Conversion Provider - 04/09/2022 10:59 AM EDT Comments: Last Office Visit (last PCP [...] Center 12/16/2022 8:30 AM Cayden Martines MD [place] If hasn't been seen in over a year OR hasn't followed up according to last diabetes/ADHD visit, make appointment for patient before sending refill to provider. Rx requested: Requested Prescriptions Pending Prescriptions Disp Refills ??? finasteride (PROSCAR) 5 MG tablet 30 tablet 5 Sig: take 1 tablet by mouth once daily EDT documented in this encounter Plan of Treatment Not on file documented as of this encounter Visit Diagnoses Not on filedocumented in this encounter Care Teams Hide Spreader Relationship Specialty Start Date End Date Cayden Martines MD [address] [place] [address] PCP - General 11/08/18 documented as of this encounter
--- OUTSIDE RECORDS SUMMARY | 2025-04-10 09:10 | XMS_ITS | Encounter Summary ---
Author Organization [facility] Address [address] [place] [address] Care Team Providers Care Solar Energy Technician Name Role Phone Cayden Martines MD Primary Care Provider [phone] Encounter Details Date Type Department Care Team (Late st Contact Info) Description 07/18/2020 Legacy Encounter [facility] Legacy Dept Provider, Legacy [...] Telephone Encounter - Legacy Conversion Provider - 07/18/2020 9:16 AM EDT Rx requested: Requested Prescriptions Pending Prescriptions Disp Refills ??? tamsulosin (FLOMAX) 0.4 MG capsule [Pharmacy Med Name: TAMSULOSIN HCL CAPS 0.4MG] 90 capsule 3 Sig: TAKE 1 CAPSULE DAILY Last Office Visit: 12/04/2019 Last filled: 10/01/2019 Next Visit Date: Future Appointments Date Time Provider Department Center 12/17/2020 11:15 AM Bart Baldwin MD [facility] EDT documented in this encounter Plan of Treatment Not on file documented as of this encounter Visit Diagnoses Not on filedocumented in this encounter Care Teams Solar Energy Technician Relationship Specialty Start Date End Date Cayden Martines MD [address] [place] [address] PCP - General 11/08/18 documented as of this encounter
--- OUTSIDE RECORDS SUMMARY | 2025-04-10 09:10 | XMS_ITS | Encounter Summary ---
Author Organization [facility] Address [address] [place] [address] Care Team Providers Care Adjunct Instructor Chemistry Name Role Phone Cayden Martines MD Primary Care Provider [phone] Encounter Details Date Type Department Care Team (Late st Contact Info) Description 10/01/2019 Legacy Encounter [facility] Legacy Dept Provider, Legacy [...] Telephone Encounter - Legacy Conversion Provider - 10/01/2019 8:36 AM EST Rx requested: Requested Prescriptions Pending Prescriptions Disp Refills ??? tamsulosin (FLOMAX) 0.4 MG capsule [Pharmacy Med Name: TAMSULOSIN HCL CAPS 0.4MG] 90 capsule 4 Sig: TAKE 1 CAPSULE DAILY Last Office Visit: 08/09/2019 Last filled: 08/09/19 Next Visit Date: Future Appointments Date Time Provider Department Center 10/03/2019 3:15 PM MD TYRA Hernandez GEN SURG [place] 10/10/2019 1:15 PM MD Wolf Vivas 10/17/2019 2:00 PM MD TYRA Hernandez GEN SURG [place] EDT documented in this encounter Plan of Treatment Not on file documented as of this encounter Visit Diagnoses Not on filedocumented in this encounter Care Teams Adjunct Instructor Chemistry Relationship Specialty Start Date End Date Cayden Martines MD [address] [place] [address] PCP - General 11/08/18 documented as of this encounter
--- OUTSIDE RECORDS SUMMARY | 2025-04-10 09:10 | XMS_ITS | Encounter Summary ---
Author Organization [facility] Address [address] [place] [address] Care Team Providers Care Authorization Representative Name Role Phone Cayden Martines MD Primary Care Provider [phone] Encounter Details Date Type Department Care Team (Late st Contact Info) Description 09/06/2019 Legacy Encounter [facility] Legacy Dept Provider, Legacy [...] Telephone Encounter - Legacy Conversion Provider - 09/06/2019 11:25 AM EST Rx requested: Requested Prescriptions Pending Prescriptions Disp Refills ??? SPIRIVA RESPIMAT 1.25 MCG/ACT AERS inhaler [Pharmacy Med Name: SPIRIVA RESPIMAT INH [id number] 1.25MCG] 12 g 4 Sig: USE 2 INHALATIONS DAILY Last Office Visit: 08/09/2019 Last filled: 08/01/2018 Next Visit Date: Future Appointments Date Time Provider Department Center 09/19/2019 1:30 PM Roger Noel MD [facility] GEN SURG [place] EDT documented in this encounter Plan of Treatment Not on file documented as of this encounter Visit Diagnoses Not on filedocumented in this encounter Care Teams Authorization Representative Relationship Specialty Start Date End Date Cayden Martines MD [address] [place] [id number] PCP - General 11/08/18 documented as of this encounter
--- OUTSIDE RECORDS SUMMARY | 2025-04-10 09:10 | XMS_ITS | Encounter Summary ---
Author Organization [facility] Address [facility] [place] [address] Care Team Providers Care Sand Technician Name Role Phone Cayden Martines MD Primary Care Provider [phone] Source Comments In the event this information is protected by the Federal Confidentiality of Alcohol and Drug AbusePatient Records regulations: The Federal rules restrict any use of the information to criminally investigate or prosecute any alcohol or drug abuse patient.[facility] Encounter Details Date Type Department Care Team (Late st Contact Info) Description 06/27/2024 Patient Msg [facility]ematology [address] [place] [address] [place] [address] [address] [place], [place] [phone] labs Social History Tobacco Use Types Packs/Day Years Used Date Smoking Tobacco: Former Cigarettes Q uit: 2020 Smokeless Tobacco: Never Alcohol Use Standard Drinks/Week Comments Not Currently 0 (1 standard drink = 0.6 oz pur e alcohol) PHQ-2 Answer Date Recorded PHQ-2 score 0 04/02/2024 Area Deprivation Index Answer Date Rui rded National Score (1-100), lower number is lower ri sk 87 04/12/2023 State Score (1-10), lower number is lower risk 8 04/12/2023 Data from: https://www.neighborhoodatlas.medicine.[facility]/. 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 file Not o n file documented as of this encounter Plan of Treatment Upcoming Encounters Date Type Department Care Team (Late st Contact Info) Description 04/16/2025 10:45 AM EDT Results Only [facility] [place] [address] Myelodysplastic disease, not elsewhere classified (HCC) [C94.6]; Elevated ferritin level [R79.89] 04/16/2025 11:00 AM EDT Infusion Center Hematology/Oncolog y [address] [place] [address] [place]; Aranesp Inj 04/30/2025 10:45 AM EDT Results Only [facility] [place] [address] Myelodysplastic disease, not elsewhere classified (HCC) [C94.6]; Elevated ferritin level [R79.89] 04/30/2025 11:00 AM EDT Infusion Center Hematology/Oncolog y [address] [place] [address] [place]; Aranesp Inj 05/14/2025 10:45 AM EDT Results Only [facility] Laboratory [address] [place], [place] [address], [place] [address] Myelodysplastic disease, not elsewhere classified (HCC) [C94.6]; Elevated ferritin level [R79.89] 05/14/2025 11:00 AM EDT Infusion Center Hematology/Oncolog y [address] [place] [address] [place]; Aranesp Inj 05/28/2025 10:45 AM EDT Results Only [facility] [place] [address] Myelodysplastic disease, not elsewhere classified (HCC) [C94.6]; Elevated ferritin level [R79.89] 05/28/2025 11:00 AM EDT Infusion Center Hematology[place] [address] [place]; Aranesp Inj 06/05/2025 12:45 PM EDT Office Visit [facility] Ophthalmology [address] [place] [address] Sheryl Mckee, OD [address] [place] [address] LVM R/S from 06/07/2025 06/11/2025 10:45 AM EDT Results Only [facility] [place] [address] Myelodysplastic disease, not elsewhere classified (HCC) [C94.6]; Elevated ferritin level [R79.89] 06/11/2025 11:00 AM EDT Infusion Center Hematology/[place] [address] [place]; Aranesp Inj 06/25/2025 10:45 AM EDT Results Only [facility] [place] [address] Myelodysplastic disease, not elsewhere classified (HCC) [C94.6]; Elevated ferritin level [R79.89] 06/25/2025 11:00 AM EDT Infusion Center Hematology[place] [address] [place]; Aranesp Inj 07/09/2025 10:20 AM EDT Visit (SP) Office Hematology [address] [place] [address] [place] [address] [place] [address] 6 month follow up 10/02/2025 11:30 AM EST Visit (SP) Office Hematology/Medical Oncology [address] [place] [address] Comfort Leavitt APRN.COIN COUNTER AND WRAPPER [address] [place] [address] 6 month OV f/u with labs prior documented as of this encounter Visit Diagnoses Not on filedocumented in this encounter Care Teams Sand Technician Relationship Specialty Start Date End Date Cayden Martines MD [address] [place] [address] PCP - General Family Medicine 05/24/23 documented as of this encounter
--- OUTSIDE RECORDS SUMMARY | 2025-04-10 09:10 | XMS_ITS | Encounter Summary ---
Author Organization [facility] Address [facility] [place] [address] Care Team Providers Care Margarine Churn Operator Name Role Phone Cayden Martines MD Primary Care Provider [phone] Source Comments In the event this information is protected by the Federal Confidentiality of Alcohol and Drug AbusePatient Records regulations: The Federal rules restrict any use of the information to criminally investigate or prosecute any alcohol or drug abuse patient.[facility] Encounter Details Date Type Department Care Team (Late st Contact Info) Description 06/12/2024 Get Medical Advice Hematology [address] [facility] [place] [address] [place] [address] [place] [address] Starting Ruben Social History Tobacco Use Types Packs/Day Years [...] is lower risk 8 04/12/2023 Data from: https://www.neighborhoodatlas.medicine.[facility].edu/. 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 file Not o n file documented as of this encounter Plan of Treatment Upcoming Encounters Date Type Department Care Team (Late st Contact Info) Description 04/16/2025 10:45 AM EDT Results Only [facility] [place] [address] Myelodysplastic disease, not elsewhere classified (HCC) [C94.6]; Elevated ferritin level [R79.89] 04/16/2025 11:00 AM EDT Infusion Center Hematology/Oncolog y [address] [place] [address] [place]; Aranesp Inj 04/30/2025 10:45 AM EDT Results Only [facility] [place] [address] Myelodysplastic disease, not elsewhere classified (HCC) [C94.6]; Elevated ferritin level [R79.89] 04/30/2025 11:00 AM EDT Infusion Center Hematology/Oncolog y [address] [place] [address] [place]; Aranesp Inj 05/14/2025 10:45 AM EDT Results Only [facility] [address] [place] [address] Myelodysplastic disease, not elsewhere classified (HCC) [C94.6]; Elevated ferritin level [R79.89] 05/14/2025 11:00 AM EDT Infusion Center Hematology/Oncolog y [address] [place] [address] [place]; Aranesp Inj 05/28/2025 10:45 AM EDT Results [place] [facility] [place] [address] Myelodysplastic disease, not elsewhere classified (HCC) [C94.6]; Elevated ferritin level [R79.89] 05/28/2025 11:00 AM EDT Infusion Center Hematology[place] [address] [place]; Aranesp Inj 06/05/2025 12:45 PM EDT Office Visit OPHT Ophthalmology [address] [place] [address] Sheryl Mckee, OD [address] [place] [address] LVM R/S from 06/07/2025 06/11/2025 10:45 AM EDT Results [place] [facility] [place] [address] Myelodysplastic disease, not elsewhere classified (HCC) [C94.6]; Elevated ferritin level [R79.89] 06/11/2025 11:00 AM EDT Infusion Center Hematology[place] [address] [place]; Aranesp Inj 06/25/2025 10:45 AM EDT Results Only [facility] [place] [address] Myelodysplastic disease, not elsewhere classified (HCC) [C94.6]; Elevated ferritin level [R79.89] 06/25/2025 11:00 AM EDT Infusion Center Hematology[place] [address] [place]; Aranesp Inj 07/09/2025 10:20 AM EDT Visit (SP) Office Hematology [address] [place] [address] [place] [address] [place] [address] 6 month follow up 10/02/2025 11:30 AM EST Visit (SP) Office Hematology/Medical Oncology [address] [place], [place] [id number] Comfort Leavitt APRN.PUMP ROOM OPERATOR [address] [place], [place] [id number] 6 month OV f/u with labs prior documented as of this encounter Visit Diagnoses Not on filedocumented in this encounter Care Teams Margarine Churn Operator Relationship Specialty Start Date End Date Cayden Martines MD [address] [place] [address] PCP - General Family Medicine 05/24/23 documented as of this encounter
--- OUTSIDE RECORDS SUMMARY | 2025-04-10 09:10 | XMS_ITS | Encounter Summary ---
Author Organization [facility] Address [address] [place] [address] Care Team Providers Care Gasket Former Name Role Phone Cayden Martines MD Primary Care Provider [phone] Source Comments In the event this information is protected by the Federal Confidentiality of Alcohol and Drug AbusePatient Records regulations: The Federal rules restrict any use of the information to criminally investigate or prosecute any alcohol or drug abuse patient.[facility] Encounter Details Date Type Department Care Team (Late st Contact Info) Description 05/31/2024 Patient [facility] [address] [place] [address] Provider, Ccaruna Miranda Prescription Social History Tobacco Use Types Packs/Day Years [...] is lower risk 8 04/12/2023 Data from: https://www.neighborhoodatlas.medicine.[facility].edu/. 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 Not on file Not o n file documented as of this encounter Plan of Treatment Upcoming Encounters Date Type Department Care Team (Late st Contact Info) Description 04/16/2025 10:45 AM EDT Results Only [facility] [place] [address] Myelodysplastic disease, not elsewhere classified (HCC) [C94.6]; Elevated ferritin level [R79.89] 04/16/2025 11:00 AM EDT Infusion Center Hematology/Oncolog y [facility] [place] [address] [place]; Aranesp Inj 04/30/2025 10:45 AM EDT Results Only [facility] [place] [address] Myelodysplastic disease, not elsewhere classified (HCC) [C94.6]; Elevated ferritin level [R79.89] 04/30/2025 11:00 AM EDT Infusion Center [facility] [place] [address] [place]; Aranesp Inj 05/14/2025 10:45 AM EDT Results Only [facility] [place] [address] Myelodysplastic disease, not elsewhere classified (HCC) [C94.6]; Elevated ferritin level [R79.89] 05/14/2025 11:00 AM EDT Infusion Center [facility]ology[facility] [place] [address] [place]; Aranesp Inj 05/28/2025 10:45 AM EDT Results Only [facility] [place] [address] Myelodysplastic disease, not elsewhere classified (HCC) [C94.6]; Elevated ferritin level [R79.89] 05/28/2025 11:00 AM EDT Infusion Center Hematology/Oncolog y [facility] [address] [facility] [facility] [place] [address] [place]; Aranesp Inj 06/05/2025 12:45 PM EDT Office Visit [facility] Ophthalmology [address] [place] [address] Sheryl Mckee, OD [address] [place] [address] LVM R/S from 06/07/2025 06/11/2025 10:45 AM EDT Results Only [facility] [place] [address] Myelodysplastic disease, not elsewhere classified (HCC) [C94.6]; Elevated ferritin level [R79.89] 06/11/2025 11:00 AM EDT Infusion Center Hematology/Oncolog y [facility] [place] [address] [place]; Aranesp Inj 06/25/2025 10:45 AM EDT Results Only [facility] [place] [address] Myelodysplastic disease, not elsewhere classified (HCC) [C94.6]; Elevated ferritin level [R79.89] 06/25/2025 11:00 AM EDT Infusion Center Hematology/Oncolog y [facility] [place] [address] [place]; Aranesp Inj 07/09/2025 10:20 AM EDT Visit (SP) Office Hematology [address] [place] [address] [place] [address] [place] [address] 6 month follow up 10/02/2025 11:30 AM EST Visit (SP) Office [facility] [place] [address] Comfort Leavitt APRN.SUEDE CLEANER [address] [place] [address] 6 month OV f/u with labs prior documented as of this encounter Visit Diagnoses Not on filedocumented in this encounter Care Teams Gasket Former Relationship Specialty Start Date End Date Cayden Martines MD [address] [place] [id number] PCP - General Family Medicine 05/24/23 documented as of this encounter
--- OUTSIDE RECORDS SUMMARY | 2025-04-10 09:10 | XMS_ITS | Encounter Summary ---
Author Organization [facility] Address [address] [place] [address] Care Team Providers Care Dag Sprayer Name Role Phone Cayden Martines MD Primary Care Provider [phone] Encounter Details Date Type Department Care Team (Late st Contact Info) Description 05/08/2020 Legacy Encounter [facility] Dept Provider, Legacy [...] Telephone Encounter - Legacy Conversion Provider - 05/08/2020 2:34 PM EDT Rx requested: Requested Prescriptions Pending Prescriptions Disp Refills ??? ADVAIR DISKUS 250-50 MCG/DOSE AEPB [Pharmacy Med Name: ADVAIR DISKUS 60'S 250/50MCG] 180 each 3 Sig: USE 1 INHALATION EVERY 12 HOURS Last Office Visit: 12/04/2019 Last filled: 04/10/2019 Next Visit Date: Future Appointments Date Time Provider Department Center 06/18/2020 11:15 AM Bart Baldwin MD [facility] documented in this encounter Plan of Treatment Not on file documented as of this encounter Visit Diagnoses Not on filedocumented in this encounter Care Teams Dag Sprayer Relationship Specialty Start Date End Date Cayden Martines MD [address] [place] [id number] PCP - General 11/08/18 documented as of this encounter
--- OUTSIDE RECORDS SUMMARY | 2025-04-10 09:10 | XMS_ITS | Encounter Summary ---
Author Organization [facility] Address [facility] [place] [address] Care Team Providers Care Company Driver Name Role Phone Cayden Martines MD Primary Care Provider [phone] Source Comments In the event this information is protected by the Federal Confidentiality of Alcohol and Drug AbusePatient Records regulations: The Federal rules restrict any use of the information to criminally investigate or prosecute any alcohol or drug abuse patient.[facility] Encounter Details Date Type Department Care Team (Late st Contact Info) Description 11/13/2024 Patient Msg Hematology [address] [address] [place] [address] [address] [place], [place] [phone] labs reviewed Social History Tobacco Use Types [...] lower risk 8 04/12/2023 Data from: https://www.neighborhoodatlas.medicine.[facility]/. 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 Not on file Not o n file documented as of this encounter Plan of Treatment Upcoming Encounters Date Type Department Care Team (Late st Contact Info) Description 04/16/2025 10:45 AM EDT Results Only [facility] [place] [address] Myelodysplastic disease, not elsewhere classified (HCC) [C94.6]; Elevated ferritin level [R79.89] 04/16/2025 11:00 AM EDT Infusion Center Hematology/Oncolog y [address] [place] [address] [place]; Aranesp Inj 04/30/2025 10:45 AM EDT Results Only [facility] [place] [address] Myelodysplastic disease, not elsewhere classified (HCC) [C94.6]; Elevated ferritin level [R79.89] 04/30/2025 11:00 AM EDT Infusion Center Hematology/Oncolog y [address] [place] [address] [place]; Aranesp Inj 05/14/2025 10:45 AM EDT Results Only [facility] [address] [place] [address] Myelodysplastic disease, not elsewhere classified (HCC) [C94.6]; Elevated ferritin level [R79.89] 05/14/2025 11:00 AM EDT Infusion Center Hematology/Oncolog y [address] [place] [address] [place]; Aranesp Inj 05/28/2025 10:45 AM EDT Results Only [facility] [place] [address] Myelodysplastic disease, not elsewhere classified (HCC) [C94.6]; Elevated ferritin level [R79.89] 05/28/2025 11:00 AM EDT Infusion Center Hematology[place] [address] [place]; Aranesp Inj 06/05/2025 12:45 PM EDT Office Visit [facility] Ophthalmology [address] [place] [address] Sheryl Mckee, OD [address] [place] [address] LVM R/S from 06/07/2025 06/11/2025 10:45 AM EDT Results Only [facility] [place] [address] Myelodysplastic disease, not elsewhere classified (HCC) [C94.6]; Elevated ferritin level [R79.89] 06/11/2025 11:00 AM EDT Infusion Center Hematology[place] [address] [place]; Aranesp Inj 06/25/2025 10:45 AM EDT Results Only [facility] [place] [address] Myelodysplastic disease, not elsewhere classified (HCC) [C94.6]; Elevated ferritin level [R79.89] 06/25/2025 11:00 AM EDT Infusion Center Hematology[place] [address] [place]; Aranesp Inj 07/09/2025 10:20 AM EDT Visit (SP) Office Hematology [address] [place] [address] [place] [address] [place] [address] 6 month follow up 10/02/2025 11:30 AM EST Visit (SP) Office Hematology/Medical Oncology [address] [place], [place] [id number] Comfort Leavitt APRN.CAR WHACKER [address] [place] [address] 6 month OV f/u with labs prior documented as of this encounter Visit Diagnoses Not on filedocumented in this encounter Care Teams Company Driver Relationship Specialty Start Date End Date Cayden Martines MD [address] [place] [address] PCP - General Family Medicine 05/24/23 documented as of this encounter
--- NOTE | 2025-04-10 09:46 | CA_ITS ---
Patient Name: LADAN WADE MR#: [id number] : 1950 Exam Date: 04/10/2025 Ordering Doctor: DR. LI OKEEFE ECHOCARDIOGRAM REPORT PROCEDURE: CA ECHO DOPPLER COMPLETE INDICATIONS: Ischemic heart disease COMPARISON: None. DESCRIPTION: COMPLETE ECHOCARDIOGRAM Real-time transthoracic echocardiography with 2D, M-mode, spectral and color flow Doppler performed. QUALITY: Technical quality was good. LEFT VENTRICLE: Normal chamber size. Mild concentric left ventricular hypertrophy. Global left ventricular systolic function is normal. LV EF: Estimated left ventricular ejection fraction is 65%. DIASTOLIC: Diastolic function is indeterminate. ATRIAL SEPTUM: LEFT ATRIUM: Mild dilatation. RIGHT ATRIUM: Mild dilatation. RIGHT VENTRICLE: Normal chamber size. Normal right ventricular systolic function. TRICUSPID VALVE: Normal mobility and thickness. No stenosis with trivial regurgitation. Mildly elevated right-sided pressures. RVSP 35 mmHg. MITRAL VALVE: Normal mobility and thickness. No evidence of mitral valve stenosis. There is no mitral annular calcification. Trivial mitral regurgitation. AORTIC VALVE: Normal trileaflet appearance. Thickened aortic valve. Normal leaflet mobility. No evidence of aortic valve stenosis. No aortic regurgitation. AORTIC ROOT: Normal diameter and appearance, measuring 3.6 cm. The ascending aorta is normal in size measuring 2.8 cm. PULMONIC VALVE: Normal thickness and mobility. No stenosis. Trivial regurgitation. PERICARDIUM: No evidence of pericardial effusion. IVC: Collapses with inspiration. Normal size. PLEURA: CONCLUSION: 1. Mild concentric left ventricular hypertrophy with normal systolic function. LVEF is estimated at 65%. 2. Normal right ventricular size and systolic function. 3. Mild biatrial dilatation. 4. No significant valvular dysfunction. 5. Mildly elevated right-sided pressures. Adult Echocardiography Procedure Report Left Ventricle LVEDD (3.7 - 5.6 cm): 4.96 cm LVESD (2.2 - 4.0 cm): 3.29 cm LVIVS thickness (0.6 - 1.2 cm): 1.27 cm LVPW thickness (0.5 - 1.0 cm): 1.30 cm e': 0.12 m/s E - e': 6.61 LVOT Max Gradient: 3.69 mm[Hg] LVOT Area (cm2): 0.96 m/s Peak Velocity (LVOT): 0.96 m/s Mean Velocity (LVOT): 0.65 m/s LVOT Diameter 2.25 cm Left Ventricular Ejection Fraction: 65 % Left Atrium LA Volume Index (2D A2C): 46.57 ml/m2 Left Atrium Systolic Dimension: 4.40 cm Mitral Valve MV E to A Ratio: 0.92 Mitral Valve A-Wave Peak Velocity: 0.88 m/s Mitral Valve E-Wave Peak Velocity: 0.81 m/s Right Ventricle RV Internal Diastolic Dimension: 4.02 cm Aorta AO Root Diam: 3.65 cm Ascending Ao Diam: 2.79 cm Aortic Valve AoV Area (Peak Cristian): 2.73 cm2, 2.73 cm2 AoV Area (VTI): 2.60 cm2, 2.60 cm2 Peak Velocity(Antegrade Flow): 1.40 m/s Peak Gradient(Antegrade Flow): 7.83 mm[Hg] Mean Velocity(Antegrade Flow): 0.88 m/s Mean Gradient(Antegrade Flow): 3.59 mm[Hg] Velocity Time Integral: 30.82 cm Tricuspid Valve Peak Velocity (Regurgitant Flow): 2.70 m/s, 2.82 m/s Pulmonic Valve Peak Velocity: 0.95 m/s Peak Gradient: 2.96 mm[Hg], 4.39 mm[Hg] Right Atrium Right Atrium Systolic Pressure: 67.04 ml, 67.04 ml Dictated by: Mitul Martinez M.D. on 04/10/2025 at 17:44 Approved by: Mitul Martinez M.D. on 04/10/2025 at 17:48
== END 2025-04-10 09:08 | disposition home or self-care (01) ==
PROVIDERS: Visit Provider Chiropractor
DX: I25.9 Chronic ischemic heart disease, unspecified (principal)
CPT/HCPCS: 93306